=== PATIENT | female | born 1940 | race Two or more races ===

== ENCOUNTER → 2016-12-03 | Outpatient (CLI) | payer MEDICARE, OTHER ==
[2016-02-17 06:00] VITALS: BP 163/60
[~2016-12-03] MED LIST: ALPR0.5T10 PO; AMLO5TAB4 PO; ASCO500T PO; CALC-178 PO; CITA10TA8 PO; COMPAZINE PO; CYCL10TA2 PO; CYCL1DRO OU; DICL100G7 TP; EPIN0.3A4 IJ; GABA-586 PO; GABA600T2 PO; HYOMAX-SL SL; LUBI24CA5 PO; METO-269 PO; OXYC40TA21 PO; PANT40GR PO; POTA10TA31 PO; PRED5TAB PO; RISE150T3 PO; TIZA4CAP3 PO; VITA400C11 PO; [UNRECOGNIZED DRUG - CODE] PO
--- NOTE | 2016-12-03 12:52 | RAD ---
DATE: 12/03/16 EXAM: DIGITAL SCREEN BILAT W/CAD HISTORY: Routine screening COMPARISON: 11/28/15 This study was interpreted with the benefit of Computerized Aided Detection (CAD). TECHNIQUE: Routine CC and MLO views of both breasts are obtained. FINDINGS: The breast tissue density is [C ] . Heterogeneously dense breast parenchyma, this reduces the sensitivity of mammograms. There are no dominant suspicious masses, suspicious microcalcifications or evidence of architectural distortion. Stable benign calcifications are seen in both breasts. Skin and nipples are intact IMPRESSION: Benign findings BI-RADS CATEGORY: 2 BENIGN FINDING(S) RECOMMENDED FOLLOW-UP: 12M 12 MONTH FOLLOW-UP PQRS compliance statement: Patient information was entered into a reminder system with a target due date for the next mammogram. Mammography is a sensitive method for finding small breast cancers, but it does not detect them all and is not a substitute for careful clinical examination. A negative mammogram does not negate a clinically suspicious finding and should not result in delay in biopsying a clinically suspicious abnormality. "Our facility is accredited by the [employer] Mammography Program."
== END | disposition home or self-care (01) ==
LOC: MAMMO 08:39
PROVIDERS: ATTEND Internal Medicine
DX: Z12.31 Encounter for screening mammogram for malignant neoplasm of breast (principal)
CPT/HCPCS: G0202; 77067

== ENCOUNTER → 2017-01-28 | Outpatient (CLI) | payer MEDICARE, OTHER ==
[2016-02-17 06:00] VITALS: BP 163/60
== END | disposition left against medical advice (07) ==
LOC: KCIC DEXA 09:44
PROVIDERS: ATTEND Internal Medicine
DX: Z53.8 Procedure and treatment not carried out for other reasons (principal)

== ENCOUNTER 2017-09-19 14:40 | Inpatient (IN) | payer MEDICARE, OTHER ==
[~2017-09-19] VITALS: Ht 152.4 cm; Wt 65.5 kg
[~2017-09-19 14:40] MED LIST changes: +DICL100G18 TP; -DICL100G7 TP; -EPIN0.3A4 IJ; +EPIPEN 2-P0.3 MG/0.3 IJ; -LUBI24CA5 PO; +LUBI24CA7 PO
--- NOTE | 2017-09-19 16:12 | PHYS DOC ---
Past Medical History Past Medical History: Arthritis, Cancer, GERD, Hypertension, UTI, Other Additional Past Medical Histor: autoimmune neuropathy, osteopenia/porosis, all rhinitis, polymyalgia rheuma Past Surgical History: Appendectomy, Cholecystectomy, Colectomy, Hysterectomy, Knee Replacement Additional Past Surgical Histo: D&C, Back sx Alcohol Use: None Drug Use: None Adult General Chief Complaint Chief Complaint: LOWER BACK PAIN OR INJURY HPI HPI Patient is a 77 year old female [employer] who presents with sharp moderate right low back pain that began today. Patient states she was walking when she turned around and twisting her back. She states she had a pop sound from her low back. Patient states the pain radiates to the right lower extremity. Denies any loss of bowel bladder function. She states she has previous history of chronic back pain with laminectomies and is on multiple pain medications. Review of Systems Review of Systems Constitutional: Denies fever or chills [] GI: Denies abdominal pain, nausea, vomiting, bloody stools or diarrhea [] : Denies dysuria or hematuria [] Musculoskeletal: Right low back pain Integument: Denies rash or skin lesions [] Neurologic: Denies headache, focal weakness or sensory changes [] All other systems were reviewed and found to be within normal limits, except as documented in this note. Current Medications Current Medications Current Medications Medications (Trade) Dose Ordered Sig/Alexia Start Time Stop Time Status Last Admin Dose Admin Dexamethasone Sodium Phosphate (Decadron) 10 mg 1X ONCE 09/19/17 16:15 09/19/17 16:16 DC 09/19/17 16:06 10 MG Diazepam (Valium) 5 mg 1X ONCE 09/19/17 16:15 09/19/17 16:16 DC 09/19/17 16:00 5 MG Fentanyl Citrate (Fentanyl 2ml Vial) 50 mcg 1X ONCE 09/19/17 16:15 09/19/17 16:16 DC 09/19/17 16:03 50 MCG Ketorolac Tromethamine (Toradol Im) 60 mg 1X ONCE 09/19/17 16:15 09/19/17 16:16 DC 09/19/17 16:04 60 MG Ondansetron HCl (Zofran Odt) 4 mg 1X ONCE 09/19/17 16:15 09/19/17 16:16 DC 09/19/17 16:00 4 MG Allergies Allergies Allergies Coded Allergies Type Severity Reaction Last Updated Verified Fish Containing Products Allergy Severe TUNA CAUSES THROAT SWELLING 11/05/15 Yes caffeine Allergy Intermediate Itching 11/05/15 Yes celecoxib Allergy Intermediate Nausea and Vomiting 11/05/15 Yes chocolate flavor Allergy Intermediate Itching 11/05/15 Yes hydrocodone Allergy Intermediate 10/12/14 Yes milk Allergy Intermediate Itching 11/25/13 Yes peanut Allergy Intermediate Itching, ALL NUTS 10/12/14 Yes peas Allergy Intermediate 02/17/16 Yes propoxyphene napsylate Allergy Intermediate Itching 11/25/13 Yes Physical Exam Physical Exam Constitutional: Well developed, well nourished, no acute distress, non-toxic appearance. [] Abdomen: Bowel sounds normal, soft, no tenderness, no masses, no pulsatile masses. [] Skin: Warm, dry, no erythema, no rash. [] Back: Diffuse paraspinal muscle tenderness of the right lumbar spine, there is slight lower lumbar spine tenderness, no CVA tenderness. Positive right leg straight raise. Patient is favoring the right side of her lumbar spine. Extremities: No tenderness, no cyanosis, no clubbing, ROM intact, no edema. [] Neurologic: Alert and oriented X 3, normal motor function, normal sensory function, no focal deficits noted. [] Psychologic: Affect normal, judgement normal, mood normal. [] Current Patient Data Vital Signs Vital Signs Date Time Temp Pulse Resp B/P (MAP) Pulse Ox O2 Delivery O2 Flow Rate FiO2 09/19/17 17:01 70 161/72 (101) 94 Room Air 09/19/17 15:03 97.8 16 97.8 EKG EKG [] Radiology/Procedures Radiology/Procedures []PROCEDURE: LUMBAR SPINE 2-3V LUMBAR SPINE 2-3V Clinical Indication: low back pain Comparison: CT abdomen and pelvis, 06/09/2016. Findings: There is moderate right convexity lower thoracic and lumbar scoliosis centered at L2. The vertebral body alignment is maintained on the lateral view. There is disc space narrowing and degenerative endplate spurring in the lumbar spine. There is L2/L3 vacuum disc phenomenon. There is mild compression deformity of the superior endplate of L4, not definitely present on prior study. Finding is age indeterminant. No retropulsion is seen. IMPRESSION: 1. Age indeterminate mild compression fracture at the superior endplate of L4. Finding not present on prior study. Correlate to any point tenderness. Acuity could be assessed with MRI as clinically warranted. 2. Moderate right convexity thoracolumbar scoliosis. DICTATED and SIGNED BY: ALEXEY ANDERSON MD DATE: 09/19/17 0025 CC: TAB READ APRN; NON,STAFF; TIMO JOHNSON MD ~ Course & Med Decision Making Course & Med Decision Making Pertinent Labs and Imaging studies reviewed. (See chart for details) Patient is in the ED with a right low back pain after twisting her back. Patient states she can barely ambulate. Lumbar spine x-rays interpreted by radiologist were noted for compression fracture of the endplate of L4 age indeterminate. Talked to patient as well as friend in the room about results. Considering she cannot ambulate well she was admitted. Spoke with Dr. Choi who accepted patient for admission under Dr. Rich Mckenna. MRI ordered for AM Gurdeep Disclaimer Dragon Disclaimer This electronic medical record was generated, in whole or in part, using a voice recognition dictation system. Departure Departure Impression: Primary Impression: Low back pain Additional Impression: Sciatica of right side Disposition: 09 ADMITTED INPATIENT Condition: STABLE Referrals: TIMO JOHNSON MD (PCP) Problem Qualifiers Primary Impression: Low back pain Chronicity: acute Back pain laterality: right Sciatica presence: with sciatica Sciatica laterality: sciatica of right side Qualified Codes: M54.41 - Lumbago with sciatica, right side TAB READ APRN Sep 19, 2017 16:12
[2017-09-19] MEDS ORDERED: KETOROLAC 60 MG/2 ML INJ. IM ONE (16:15)
[2017-09-19] MEDS ORDERED: diazePAM 5 MG TABLET PO ONE (16:15)
[2017-09-19] MEDS ORDERED: fentaNYL PF VIAL 100 MCG/2 ML VIAL IM ONE (16:15)
[2017-09-19] MEDS ORDERED: DEXAMETHASONE SOD PHOS 20 MG/5 ML VIAL. IM ONE (16:15)
[2017-09-19] MEDS ORDERED: ONDANSETRON ODT 4 MG TAB.RAPDIS. PO ONE (16:15)
--- NOTE | 2017-09-19 17:04 | RAD ---
LUMBAR SPINE 2-3V Clinical Indication: low back pain Comparison: CT abdomen and pelvis, 06/09/2016. Findings: There is moderate right convexity lower thoracic and lumbar scoliosis centered at L2. The vertebral body alignment is maintained on the lateral view. There is disc space narrowing and degenerative endplate spurring in the lumbar spine. There is L2/L3 vacuum disc phenomenon. There is mild compression deformity of the superior endplate of L4, not definitely present on prior study. Finding is age indeterminant. No retropulsion is seen. IMPRESSION: 1. Age indeterminate mild compression fracture at the superior endplate of L4. Finding not present on prior study. Correlate to any point tenderness. Acuity could be assessed with MRI as clinically warranted. 2. Moderate right convexity thoracolumbar scoliosis.
[2017-09-19] MEDS ORDERED: ACETAMINOPHEN 325 MG TABLET. PO PRN (18:45)
[2017-09-19] MEDS ORDERED: diazePAM 5 MG TABLET PO PRN (18:45)
[2017-09-19] MEDS ORDERED: ONDANSETRON PF 4 MG/2 ML VIAL. IV PRN (18:45)
[2017-09-19] MEDS ORDERED: fentaNYL PF VIAL 100 MCG/2 ML VIAL IV PRN (18:45)
[2017-09-19 19:35] VITALS: BP 167/81
[2017-09-19] MEDS ORDERED: FEXO180T81 PO (20:12)
[2017-09-19] MEDS ORDERED: TRIA15OI TP (20:12)
[2017-09-19] MEDS ORDERED: ESOM40CA PO (20:12)
[2017-09-19] MEDS ORDERED: BETA15CR5 TP (20:12)
[2017-09-19] MEDS ORDERED: DULO60CA6 PO (20:12)
[2017-09-19] MEDS ORDERED: BACL10TA PO (20:12)
[2017-09-19] MEDS ORDERED: POTA20TA82 PO (20:12)
[2017-09-19] MEDS ORDERED: DIPH25CA58 PO (20:12)
[2017-09-19] MEDS ORDERED: diphenhydrAMINE HCL 25 MG CAPSULE PO PRN (20:30)
[2017-09-19] MEDS ORDERED: DICLOFENAC SODIUM 1% TOPICAL GEL 100GM TUBE. TP PRN (20:30)
[2017-09-19] MEDS ORDERED: TRIAMCINOLONE ACETONIDE 0.1% TOPICAL OINTMENT 15GM TUBE. TP PRN (20:30)
[2017-09-19] MEDS ORDERED: FLUOCINONIDE 0.05% TOPICAL CREAM 15 GM TUBE. TP PRN (21:00)
[2017-09-19] MEDS ORDERED: PROCHLORPERAZINE 5 MG TABLET. PO PRN (21:00)
[2017-09-19] MEDS: cycloSPORINE 0.05% OPTH 1 DROP DROPERETTE OU SCH (21:40)
[2017-09-19] MEDS: ALPRAZolam 0.5 MG TABLET PO SCH (21:40)
[2017-09-19] MEDS: GABAPENTIN 300 MG CAPSULE. PO SCH (21:40)
[2017-09-19] MEDS: oxyCODONE ER 40 MG TAB.ER.12H PO SCH (21:40)
[2017-09-19] MEDS: oxyCODONE/APAP 7.5/325 1 TAB TABLET PO PRN (21:41)
[2017-09-19 23:11] VITALS: BP 127/68
[2017-09-20 02:58] VITALS: BP 130/64
[2017-09-20 06:15] LABS: BASO % 0 % (0-3); EOS % 0 % (0-3); HEMOGLOBIN 13.7 g/dL (12.0-15.5); LYMPH # 0.7 x10^3/uL (1.0-4.8); LYMPH % 7 % (24-48); MEAN CORPUSCULAR HEMOGLOBIN 30 pg (25-35); MEAN CORPUSCULAR HGB CONC 33 g/dL (31-37); MEAN CORPUSCULAR VOLUME 91 fL (79-100); MONO % 3 % (0-9); NEUT % 90 % (31-73); PLATELET COUNT 255 x10^3/uL (140-400); RED BLOOD COUNT 4.53 x10^6/uL (3.50-5.40); WHITE BLOOD COUNT 9.5 x10^3/uL (4.0-11.0)
[2017-09-20 06:16] LABS: CALCIUM 8.4 mg/dL (8.5-10.1); CREATININE 0.6 mg/dL (0.6-1.0); GFR 97.2; POTASSIUM 3.6 mmol/L (3.5-5.1)
[2017-09-20 07:15] VITALS: BP 119/56
[2017-09-20 11:06] VITALS: BP 143/69
[2017-09-20] MEDS: cycloSPORINE 0.05% OPTH 1 DROP DROPERETTE OU SCH ×2 (11:57→20:43)
[2017-09-20] MEDS: GABAPENTIN 300 MG CAPSULE. PO SCH ×2 (11:57→20:43)
[2017-09-20] MEDS: DULoxetine HCL 30 MG CAPSULE.DR PO SCH (11:57)
[2017-09-20] MEDS: amLODIPine BESYLATE 5 MG TABLET PO SCH (11:58)
[2017-09-20] MEDS: predniSONE 5 MG TABLET PO SCH (11:58)
[2017-09-20] MEDS: METOPROLOL SUCC 24HR ER 50 MG TAB.ER.24H. PO SCH (11:59)
[2017-09-20] MEDS: oxyCODONE ER 40 MG TAB.ER.12H PO SCH ×2 (11:59→20:43)
[2017-09-20] MEDS: PANTOPRAZOLE 40 MG TABLET.DR. PO SCH (11:59)
[2017-09-20] MEDS ORDERED: VITAMIN E 200 UNIT CAPSULE. PO SCH (12:00)
[2017-09-20] MEDS: ASCORBIC ACID 500 MG TABLET PO SCH (12:00)
[2017-09-20] MEDS: CALCIUM CARB/VIT D3 500/200 TABLET. PO SCH ×2 (12:00→17:03)
[2017-09-20] MEDS ORDERED: CETIRIZINE HCL 10 MG TABLET. PO SCH (12:00)
[2017-09-20] MEDS ORDERED: POTASSIUM CHLORIDE 20 MEQ TABLET.ER. PO SCH (12:00)
[2017-09-20 13:08] LABS: PLT ESTIMATE ADEQUATE (ADEQUATE)
[2017-09-20 15:00] VITALS: BP 137/67
--- NOTE | 2017-09-20 15:23 | RAD ---
LUMBAR SPINE WO CONTRAST Clinical Indication: compression fx on xray. LBP, X 1 DAY TWISTED FELL, SURGERY 2002 Comparison: MR lumbar spine without contrast, 07/06/2009. Technique: Routine multiplanar multiple pulse sequence images of the lumbar spine are obtained without IV contrast. Findings: There is moderate right convexity thoracolumbar scoliosis. There is mild marrow edema that is probably reactive of the endplates of L3/L4 and L4/L5. There is no marrow edema associated with slight compression deformity at the superior endplate of L4. No other bone marrow edema is identified. There is therefore no evidence of acute compression fracture. There is disc desiccation in the lumbar spine. There is disc space narrowing with relative sparing of L1/L2. The vertebral body height and alignment are maintained on the sagittal view. There is a Schmorl's node at the superior endplate of L3. No suspicious T1 marrow signal abnormality is identified. Conus medullaris is normal in signal intensity, appears to terminate at about L1. L1/L2: There is small broad-based posterior disc bulge. Central canal is patent. Neural foramina appear adequate. L2/L3: Broad-based posterior disc osteophyte complex. Mild facet hypertrophy. Narrowing of left lateral recess is severe. Central canal is adequate. There is mild bilateral nerve foraminal narrowing. L3/L4: There is broad-based posterior disc osteophyte complex and facet hypertrophy area in severe narrowing of the left lateral recess. Central canal is adequate. Mild bilateral neural foraminal narrowing. L4/L5: There is broad-based posterior disc osteophyte complex. There is narrowing of the right lateral recess. Central canal is adequate. Moderate right and mild left neural foraminal narrowing. L5/S1: There is small broad-based posterior disc osteophyte complex. The central canal is patent. Mild facet hypertrophy. Probably moderate right and no significant left neural foraminal narrowing. Comparison to the prior study raises question whether the prior study is of the same patient. IMPRESSION: 1. No acute compression fracture in the lumbar spine. 2. There is moderate right convexity thoracolumbar scoliosis. 3. Degenerative lumbar spondylosis, individual levels detailed above.
--- NOTE | 2017-09-20 15:53 | RAD ---
PQRS Compliance Statement: One or more of the following individualized dose reduction techniques were utilized for this examination: 1. Automated exposure control 2. Adjustment of the mA and/or kV according to patient size 3. Use of iterative reconstruction technique CT LUMBAR SPINE WO CONTRAST Clinical Indication: l4 fracture, low back pain. Comparison: MR lumbar spine without contrast, earlier same day. Technique: Helical CT imaging of the lumbar spine is performed without IV contrast. Findings: There is no acute compression fracture. There is moderate right convexity lumbar scoliosis centered at L2/L3. There is lateral listhesis of L3 on L4 and L4 on L5. There are reactive endplate changes in the lumbar spine, relative sparing of L1/L2. There is vacuum disc phenomenon at every level but L1/L2. Soft tissue findings of degenerative spondylosis detailed on the MR lumbar spine report. There are acute traumatic minimally displaced fractures of the right L2 and L3 transverse processes. Limited visualization of the retroperitoneum is unremarkable. IMPRESSION: 1. No acute compression fracture. 2. Acute traumatic minimally displaced fractures of the right L2 and L3 transverse processes.
[2017-09-20] MEDS ORDERED: BACLOFEN 10 MG TABLET. PO SCH (17:00)
[2017-09-20] MEDS: ALPRAZolam 0.5 MG TABLET PO SCH (17:03)
--- NOTE | 2017-09-20 18:13 | PDOC ---
Provider Note Provider Note Pt seen.H&P dictated. #[id number] HIRAM FORD MD Sep 20, 2017 18:13
[2017-09-20 19:00] VITALS: BP 136/66
--- NOTE | 2017-09-20 19:34 | HP ---
ADMIT DATE: 09/19/2017 LOCATION: 430. REASON FOR ADMISSION TO THE HOSPITAL: Back pain, possible compression fracture of the spine. HISTORY OF PRESENT ILLNESS: The patient is a 77-year-old female, patient of Dr. Timo Villanueva. She has a history of polymyalgia rheumatica, autoimmune neuropathy, osteoporosis. She was having sharp pain and that came yesterday, came to the Emergency Room and this was happened when she was twisting her back and felt something pop and then she was going down to the leg ,no problems with bladder or bowel incontinence and x-rays showed sagittal questionable compression fracture. The patient was admitted for pain control and for further investigations and treatment. PAST MEDICAL HISTORY: Arthritis, hypertension, GERD, autoimmune neuropathy, osteoporosis, polymyalgia rheumatica. PAST SURGICAL HISTORY: Appendectomy, gallbladder surgery, hysterectomy, bilateral knee replacements, colectomy, D&C. PERSONAL HISTORY: No history of smoking, alcohol, or drug abuse. ALLERGIES: TO FISH CONTAINING PRODUCTS, CAFFEINE, CELEBREX, CHOCOLATE, HYDROCODONE, MILK, PEANUT, PEAS, DARVOCET, TREE NUT. MEDICATIONS AT HOME: The patient is on Xanax 0.5 daily, amlodipine 5 mg daily, vitamin C 500 mg daily, baclofen 10 mg daily, betamethasone cream daily, calcium 1000 mg daily, Restasis eye drops, diclofenac, Voltaren gel daily, Benadryl daily, Cymbalta 60 mg daily, Nexium 40 mg daily, Yudith one daily, gabapentin 300 mg daily and 600 at bedtime, metoprolol 50 mg daily, oxycodone 40 mg twice a day, oxycodone q. 6 7.5, potassium 20 mEq daily, prednisone 5 mg daily, triamcinolone cream daily, vitamin E daily 400 units, Compazine 5 mg q. 6 p.r.n. FAMILY HISTORY: Unremarkable. REVIEW OF SYSTEMS: CARDIAC: No chest pain. LUNGS: No cough, sputum. GASTROINTESTINAL: No nausea, vomiting. No problems with bladder or bowel control. PHYSICAL EXAMINATION: GENERAL: The patient is not in any distress. VITAL SIGNS: Temperature 97, pulse 71, respirations 16, blood pressure 170/79, 96 on room air. HEENT: Head is atraumatic. Pupils equal. Oral cavity: No congestion. NECK: Supple. Thyroid not enlarged. JVD not elevated. CHEST: Symmetrical. CARDIOVASCULAR: S1, S2. LUNGS: Clear. ABDOMEN: Soft, no mass palpable. EXTERNAL GENITALIA: No [place]. RECTAL: Deferred. EXTREMITIES: Scars in bilateral knees. No calf tenderness, no edema. Pulses 1+. The patient has point tenderness in the lumbar area as well as sacral area on the right side. LABORATORY DATA: Shows a white count of 9, hemoglobin 14, platelets 255. Electrolytes: Sodium 141, creatinine 3.6, chloride 105, bicarbonate 30, anion gap 6, BUN 17, creatinine 0.6, glucose 128. X-rays of the lumbar spine initially showed possible compression fracture of the L4 and some convexity of the scoliosis. Had a CT scan of the lumbar spine, which shows transverse process could be a displaced fracture at the right L2 and L3. The MRI of the lumbar spine did not show any fracture. FINAL IMPRESSION: 1. Acute low back pain. 2. Possible fractures of the lumbar spine. 3. Polymyalgia rheumatica. 4. Osteoporosis. 5. History of surgery on the knees. PLAN: At this time, was admit to hospital. The patient had a CT scan of the spine. MRI was ordered and it was done. It did not show any fracture. We will have physical therapy, rehab consult and see how the patient's condition improves. HIRAM FORD MD DR: TOBY/celena JOB#: [id number] / [id number] TIMO Villanueva MD
--- NOTE | 2017-09-20 20:10 | PDOC ---
Provider Note Provider Note patient seen and examined at 1130 right sided low back pain and right hip pain superior endplate fracture L4 severe degenerative scoliosis Lumbar CT pending consult Dr. Jenkins full consult to follow NEMESIO GARCIA MD Sep 20, 2017 20:10
[2017-09-20] MEDS: oxyCODONE/APAP 7.5/325 1 TAB TABLET PO PRN (20:43)
[2017-09-20 21:16] LABS: BILIRUBIN,URINE NEGATIVE (NEG); GLUCOSE,URINE NEGATIVE (NEG); NITRITE,URINE NEGATIVE (NEG); PROTEIN,URINE NEGATIVE (NEG-TRACE); UROBILINOGEN,URINE 0.2 mg/dL (0.2 mg/dL)
[2017-09-20 21:24] LABS: BACTERIA,URINE FEW /HPF (0-FEW); SQUAMOUS EPITHELIAL CELL,UR MANY /LPF
[2017-09-20 23:25] VITALS: BP 159/75
[2017-09-21 03:00] VITALS: BP 163/56
[2017-09-21 05:29] LABS: ALBUMIN 2.7 g/dL (3.4-5.0); ALBUMIN/GLOBULIN RATIO 0.8 (1.0-1.7); CALCIUM 8.5 mg/dL (8.5-10.1); CREATININE 0.6 mg/dL (0.6-1.0); GFR 97.2; POTASSIUM 3.5 mmol/L (3.5-5.1); TOTAL BILIRUBIN 0.3 mg/dL (0.2-1.0); TOTAL PROTEIN 6.2 g/dL (6.4-8.2)
[2017-09-21 07:00] VITALS: BP 129/61
[2017-09-21] MEDS: GABAPENTIN 300 MG CAPSULE. PO SCH (08:04)
[2017-09-21] MEDS: DULoxetine HCL 30 MG CAPSULE.DR PO SCH (08:04)
[2017-09-21] MEDS: METOPROLOL SUCC 24HR ER 50 MG TAB.ER.24H. PO SCH (08:05)
[2017-09-21] MEDS: PANTOPRAZOLE 40 MG TABLET.DR. PO SCH (08:05)
[2017-09-21] MEDS: CALCIUM CARB/VIT D3 500/200 TABLET. PO SCH (08:05)
[2017-09-21] MEDS: predniSONE 5 MG TABLET PO SCH (08:05)
[2017-09-21 08:06] VITALS: BP 129/61
[2017-09-21] MEDS: ASCORBIC ACID 500 MG TABLET PO SCH (08:06)
[2017-09-21] MEDS: amLODIPine BESYLATE 5 MG TABLET PO SCH (08:06)
[2017-09-21] MEDS: cycloSPORINE 0.05% OPTH 1 DROP DROPERETTE OU SCH (08:06)
[2017-09-21] MEDS: oxyCODONE ER 40 MG TAB.ER.12H PO SCH (09:03)
[2017-09-21] MEDS ORDERED: POTASSIUM CHLORIDE 20 MEQ TABLET.ER. PO ONE (09:30)
--- NOTE | 2017-09-21 09:53 | DISCH ---
DISCHARGE FINAL DIAGNOSIS Problems Medical Problems: (1) Low back pain Status: Acute (2) Sciatica of right side Status: Acute CONDITION ON DISCHARGE: Stable HOME HEALTH: No POST DISCHARGE ORDERS ACTIVITY ORDERS: Resume previous activity, Activity as tolerated DIET AFTER DISCHARGE: Cardiac CHECKS AFTER DISCHARGE CHECKS AFTER DISCHARGE: Check blood press - daily TIMO JOHNSON MD Sep 21, 2017 09:52
--- NOTE | 2017-09-21 10:03 | PDOC ---
IM PROGRESS NOTES- Subjective Subjective Back pain is improving. Objective Vitals Vital Signs Date Time Temp Pulse Resp B/P (MAP) Pulse Ox O2 Delivery O2 Flow Rate FiO2 09/21/17 09:03 94 Room Air 09/21/17 08:06 69 129/61 09/21/17 07:00 97.7 18 97.7 Input & Output Intake and Output 09/21/17 07:00 Intake Total 800 ml Balance 800 ml Intake Oral 800 ml # Voids 3 Physical Exam Physical Exam General appearance - alert,well appearing, and in no distress and oriented to person, place, and time Mental Status - alert, oriented to person, place, and time, affect appropriate to mood Head - normal Chest - clear to auscultation, no wheezes, rales or rhonchi, symmetric air entry Heart - S1 and S2 normal Abdomen - soft, nontender, nondistended, no masses or organomegaly Neurological - alert and oriented Musculoskeletal - no muscular tenderness noted Extremities - no pedal edema Skin - warm and dry Labs Laboratory Tests Test 09/20/17 05:25 09/20/17 20:00 09/21/17 03:50 White Blood Count 9.5 x10^3/uL (4.0-11.0) Red Blood Count 4.53 x10^6/uL (3.50-5.40) Hemoglobin 13.7 g/dL (12.0-15.5) Hematocrit 41.0 % (36.0-47.0) Mean Corpuscular Volume 91 fL (79-100) Mean Corpuscular Hemoglobin 30 pg (25-35) Mean Corpuscular Hemoglobin Concent 33 g/dL (31-37) Red Cell Distribution Width 13.0 % (11.5-14.5) Platelet Count 255 x10^3/uL (140-400) Neutrophils (%) (Auto) 90 % (31-73) Lymphocytes (%) (Auto) 7 % (24-48) Monocytes (%) (Auto) 3 % (0-9) Eosinophils (%) (Auto) 0 % (0-3) Basophils (%) (Auto) 0 % (0-3) Neutrophils # (Auto) 8.5 x10^3uL (1.8-7.7) Lymphocytes # (Auto) 0.7 x10^3/uL (1.0-4.8) Monocytes # (Auto) 0.3 x10^3/uL (0.0-1.1) Eosinophils # (Auto) 0.0 x10^3/uL (0.0-0.7) Basophils # (Auto) 0.0 x10^3/uL (0.0-0.2) Segmented Neutrophils % 87 % (35-66) Band Neutrophils % 4 % (0-9) Lymphocytes % 3 % (24-48) Atypical Lymphocytes % (Manual) 1 % (0-0) Monocytes % 5 % (0-10) Platelet Estimate Adequate (ADEQUATE) Sodium Level 141 mmol/L (136-145) 142 mmol/L (136-145) Potassium Level 3.6 mmol/L (3.5-5.1) 3.5 mmol/L (3.5-5.1) Chloride Level 105 mmol/L (98-107) 106 mmol/L (98-107) Carbon Dioxide Level 30 mmol/L (21-32) 31 mmol/L (21-32) Anion Gap 6 (6-14) 5 (6-14) Blood Urea Nitrogen 17 mg/dL (7-20) 18 mg/dL (7-20) Creatinine 0.6 mg/dL (0.6-1.0) 0.6 mg/dL (0.6-1.0) Estimated GFR (Cockcroft-Gault) 97.2 97.2 Glucose Level 128 mg/dL (70-99) 101 mg/dL (70-99) Calcium Level 8.4 mg/dL (8.5-10.1) 8.5 mg/dL (8.5-10.1) Urine Collection Type Unknown Urine Color Yellow Urine Clarity Clear Urine pH 7.0 Urine Specific [place] 1.025 Urine Protein Negative mg/dL (NEG-TRACE) Urine Glucose (UA) Negative mg/dL (NEG) Urine Ketones (Stick) Negative mg/dL (NEG) Urine Blood Negative (NEG) Urine Nitrite Negative (NEG) Urine Bilirubin Negative (NEG) Urine Urobilinogen Dipstick 0.2 mg/dL (0.2 mg/dL) Urine Leukocyte Esterase Small (NEG) Urine RBC 1-2 /HPF (0-2) Urine WBC 1-4 /HPF (0-4) Urine Squamous Epithelial Cells Many /LPF Urine Bacteria Few /HPF (0-FEW) Urine Mucus Mod /LPF BUN/Creatinine Ratio 30 (6-20) Total Bilirubin 0.3 mg/dL (0.2-1.0) Aspartate Amino Transf (AST/SGOT) 22 U/L (15-37) Alanine Aminotransferase (ALT/SGPT) 25 U/L (14-59) Alkaline Phosphatase 84 U/L (46-116) Total Protein 6.2 g/dL (6.4-8.2) Albumin 2.7 g/dL (3.4-5.0) Albumin/Globulin Ratio 0.8 (1.0-1.7) Laboratory Tests Test 09/20/17 20:00 09/21/17 03:50 Urine Collection Type Unknown Urine Color Yellow Urine Clarity Clear Urine pH 7.0 Urine Specific [place] 1.025 Urine Protein Negative mg/dL (NEG-TRACE) Urine Glucose (UA) Negative mg/dL (NEG) Urine Ketones (Stick) Negative mg/dL (NEG) Urine Blood Negative (NEG) Urine Nitrite Negative (NEG) Urine Bilirubin Negative (NEG) Urine Urobilinogen Dipstick 0.2 mg/dL (0.2 mg/dL) Urine Leukocyte Esterase Small (NEG) Urine RBC 1-2 /HPF (0-2) Urine WBC 1-4 /HPF (0-4) Urine Squamous Epithelial Cells Many /LPF Urine Bacteria Few /HPF (0-FEW) Urine Mucus Mod /LPF Sodium Level 142 mmol/L (136-145) Potassium Level 3.5 mmol/L (3.5-5.1) Chloride Level 106 mmol/L (98-107) Carbon Dioxide Level 31 mmol/L (21-32) Anion Gap 5 (6-14) Blood Urea Nitrogen 18 mg/dL (7-20) Creatinine 0.6 mg/dL (0.6-1.0) Estimated GFR (Cockcroft-Gault) 97.2 BUN/Creatinine Ratio 30 (6-20) Glucose Level 101 mg/dL (70-99) Calcium Level 8.5 mg/dL (8.5-10.1) Total Bilirubin 0.3 mg/dL (0.2-1.0) Aspartate Amino Transf (AST/SGOT) 22 U/L (15-37) Alanine Aminotransferase (ALT/SGPT) 25 U/L (14-59) Alkaline Phosphatase 84 U/L (46-116) Total Protein 6.2 g/dL (6.4-8.2) Albumin 2.7 g/dL (3.4-5.0) Albumin/Globulin Ratio 0.8 (1.0-1.7) Meds Current Medications Baclofen (Lioresal) 10 mg DAILYWSUP PO Last administered on 09/20/17 17:03; Start 09/20/17 at 17:00 Cetirizine HCl (ZyrTEC) 10 mg DAILYWLUN PO Last administered on 09/20/17 12: 05; Start 09/20/17 at 12:00 Potassium Chloride (Klor-Con) 20 meq 1X ONCE PO ; Start 09/21/17 at 09:30; Stop 09/21/17 at 09:31; Status DC Potassium Chloride (Klor-Con) 20 meq DAILYWLUN PO Last administered on 12:05; Start 09/20/17 at 12:00 Vitamin E 400 unit DAILYWLUN PO Last administered on 09/20/17 12:04; Start 09/20/17 at 12:00 Assessment Assessment Low back pain- no fractures noted on MRI of lumbar spine.Show degenerative disease. Hypokalemia- K 3.5 Replace K. No UTI- is asymptomatic and u/a not significant. Osteoporosis. She is feeling much better. Discharge today if ok with . Continue home meds. Discharge Management - 35 minutes. Plan Plan For more details regarding further plans, please refer to the orders. TIMO JOHNSON MD Sep 21, 2017 10:03
--- NOTE | 2017-09-21 12:38 | CONS ---
DATE OF CONSULTATION: 09/21/2017 LOCATION: She is in room 430. ATTENDING PHYSICIAN: Dr. Bala Villanueva. REASON FOR CONSULTATION: The patient was seen at the request of Dr. Choi for rehab evaluation on 09/21/2017. HISTORY OF PRESENT ILLNESS: This is a 77-year-old female with known polymyalgia rheumatica, autoimmune neuropathy, osteoporosis. The patient developed sharp pain over right side of her lower back after she twisted her back on 09/19/2017. She was admitted through the Emergency Room. The patient had radiological studies, lumbar spine x-rays revealed indeterminate mild compression fracture of superior endplate of L4 with associated disk space narrowing and degenerative endplate spurring in the lumbar spine, more so at L2-L3, also moderate right convexity lower thoracic and lumbar scoliosis centered at L2. MRI scan of her lumbar vertebrae done on 09/20/2017 revealed no acute compression fracture of the lumbar spine, moderate right convexity thoracolumbar scoliosis and degenerative lumbar spondylosis. CT scan of the lumbar spine revealed acute traumatic minimally displaced fractures of her right L2-L3 transverse processes. The patient admits to some pain in the right side of her lower back and she denies any numbness, tingling sensation in the extremities. The patient has been using a lumbar corset for long time while up. She uses a roller walker to walk. PAST MEDICAL HISTORY: Includes arthritis, hypertension, gastroesophageal reflux disease, autoimmune neuropathy, osteoporosis, polymyalgia rheumatica, status post appendectomy, cholecystectomy, hysterectomy, bilateral total knee arthroplasty, colectomy. ALLERGIES: SHE IS KNOWN ALLERGIC TO FISH CONTAINING PRODUCTS, CAFFEINE, CELEBREX, CHOCOLATE, HYDROCODONE, MILK, PEANUT, PEAS, DARVOCET AND TREE NUT. SOCIAL HISTORY: The patient is a [employer]. REVIEW OF SYSTEMS: She denies any trouble with her bowel or bladder control at the present time. PHYSICAL EXAMINATION: Today, revealed an elderly female. She is alert, oriented to time, place and person, follows commands appropriately, moves all 4 extremities voluntarily where she has 4+/5 grade muscle strength. Deep tendon reflexes are 2+ and symmetrical and she had equal perception of touch and pinprick sensation bilaterally. She had tenderness to palpation over right lumbar paraspinal muscles extending over to sacroiliac joint area and straight leg raising test is negative bilaterally. She had painful limited movements of her lumbar spine. She is independent with bed mobility, transfers, and walking using a roller walker. ASSESSMENT: The patient with lumbar sprain from twisting motion with associated minimally displaced transverse process fractures of L2 and L3 on the right side in a patient with known chronic lower back pain from degenerative disk disease and degenerative joint disease of lumbar vertebrae without any clinical evidence of ongoing lumbar radiculopathy, status post bilateral total knee arthroplasty. RECOMMENDATIONS: I have instructed her in a home program of physical modalities and stretching exercises and reviewed with her proper body mechanics. I agree with the plans for home with outpatient followup and I have advised her to keep using the lumbar corset on an as needed basis. Dr. Choi, I appreciate asking me to participate in the care of this interesting patient. I will be glad to follow her with you as needed for her rehabilitation. JESSICA MCCORMICK MD DR: MONA/celena JOB#: [id number] / [id number]
--- NOTE | 2017-09-29 15:53 | PDOC3 ---
IM DISCHARGE SUMMARY Date of Admission Date of Admission Date of Admission: Sep 19, 2017 at 18:00 Date of Discharge Date of Discharge 09/21/27 Primary Diagnosis Primary Diagnosis FINAL IMPRESSION: 1. Acute on chronic LBP secondary to non traumatic lumbar strain. 3. Polymyalgia rheumatica. 4. Osteoporosis. 5. Hypertension 6. chronic pain syndrome with underlying RA and OA with chronic OP management 7. RA chronic prednisone use 8. tortuous esophagus 9. hyperlipidemia 10. autoimmune neuropathy 11. psoriasis 11. CKD II 12. polymyalgia rheumatica 13. h/o dysphagia resolved with stricture dilation 14. h/o stomach cancer: gastrectomy and chemo 15. DDD and DJD lumbar spine 16. H/o bilateral knee arthroplasty 17. moderate chronic PCL malnutrition 18. h/o diverticulitis 19. superior endplate fracture L4 atraumatic with h/o osteoporosis POA Problems: Consults Consults Anadna Ramirez MD, Dr. Procedures Procedures None Labs Labs See EMR Brief hospital course Brief hospital course This 77 year old [place] male who presented with intractable low back pain was admitted. The following is a summary of her treatment: 09/21/17 Low back pain- no fractures noted on MRI of lumbar spine.Show degenerative disease.--Dr. Ramirez noted L4 endplate fracture atraumatic. - Hypokalemia- K 3.5 Replace K. No UTI- is asymptomatic and u/a not significant. Osteoporosis.- will eval for outpatient infusion Prolia She is feeling much better. Discharge today if ok with . Continue home meds. Discharge Management - 35 minutes. 09/20/17 At this time, was admit to hospital. The patient had a CT scan of the spine. MRI was ordered and it was done. It did not show any fracture. We will have physical therapy, rehab consult and see how the patient's condition improves. consult rehab medicine and neurosurgery For more details regarding the past history, family history, social history, surgical history and other details, please refer to History and Physical. She is being discharged home. Please see the discharge orders. Medications Medications reviewed and reconciled for discharge. Allergy Allergies Coded Allergies Type Severity Reaction Last Updated Verified Fish Containing Products Allergy Severe TUNA CAUSES THROAT SWELLING 11/05/15 Yes caffeine Allergy Intermediate Itching 11/05/15 Yes celecoxib Allergy Intermediate Nausea and Vomiting 11/05/15 Yes chocolate flavor Allergy Intermediate Itching 11/05/15 Yes hydrocodone Allergy Intermediate 10/12/14 Yes milk Allergy Intermediate Itching 11/25/13 Yes peanut Allergy Intermediate Itching, ALL NUTS 10/12/14 Yes peas Allergy Intermediate 02/17/16 Yes propoxyphene napsylate Allergy Intermediate Itching 11/25/13 Yes tree nut Allergy Intermediate ITCHING, ALL NUTS 09/21/17 Yes Follow up Per Dr. Villanueva instructions DISPOSITION: Home Comments Discharge Management - 35 minutes. For other details please refer to discharge instructions AGUS PUGA APRN Sep 29, 2017 15:53
== END 2017-09-21 11:00 | disposition home or self-care (01) | DRG 543 ==
LOC: ER 14:40 → 4 NORTH 18:00
PROVIDERS: ADMIT Internal Medicine; ATTEND Internal Medicine
DX: M80.08XA Age-related osteoporosis with current pathological fracture, vertebra(e), initial encounter for fracture (principal); E44.0 Moderate protein-calorie malnutrition; G62.9 Polyneuropathy, unspecified; M41.86 Other forms of scoliosis, lumbar region; S39.012A Strain of muscle, fascia and tendon of lower back, initial encounter; M51.36 Other intervertebral disc degeneration, lumbar region; M54.9 Dorsalgia, unspecified; M54.41 Lumbago with sciatica, right side; M46.06 Spinal enthesopathy, lumbar region; M47.816 Spondylosis without myelopathy or radiculopathy, lumbar region; G89.29 Other chronic pain; J31.0 Chronic rhinitis; M35.3 Polymyalgia rheumatica; X58.XXXA Exposure to other specified factors, initial encounter; E87.6 Hypokalemia; K21.9 Gastro-esophageal reflux disease without esophagitis; I10 Essential (primary) hypertension; Z96.653 Presence of artificial knee joint, bilateral; M19.90 Unspecified osteoarthritis, unspecified site; Z90.710 Acquired absence of both cervix and uterus; Z90.49 Acquired absence of other specified parts of digestive tract; Z88.6 Allergy status to analgesic agent; Z91.011 Allergy to milk products; Z91.010 Allergy to peanuts; Z91.018 Allergy to other foods; Z88.8 Allergy status to other drugs, medicaments and biological substances; Y93.89 Activity, other specified; Y92.89 Other specified places as the place of occurrence of the external cause; Y99.8 Other external cause status; Z87.440 Personal history of urinary (tract) infections; Z85.9 Personal history of malignant neoplasm, unspecified; Z79.899 Other long term (current) drug therapy
CPT/HCPCS: 36415; 72100; 72131; 72148; 80048; 80053; 81001; 85007; 85025; 87086; 96372; J1100; J1885; J3010; J7512; Q0162; 99285-25

== ENCOUNTER → 2017-12-09 | Outpatient (CLI) | payer MEDICARE, OTHER | END | disposition home or self-care (01) | LOC: MAMMO 08:31 | DX: Z12.31 Encounter for screening mammogram for malignant neoplasm of breast (principal) | CPT/HCPCS: 77067 ==

== ENCOUNTER → 2018-05-26 | Outpatient (CLI) | payer MEDICARE, OTHER | END | disposition home or self-care (01) | LOC: KCIC DEXA 09:12 | DX: E28.39 Other primary ovarian failure (principal); I12.9 Hypertensive chronic kidney disease with stage 1 through stage 4 chronic kidney disease, or unspecified chronic kidney disease; N18.2 Chronic kidney disease, stage 2 (mild); E78.5 Hyperlipidemia, unspecified; E87.6 Hypokalemia; K21.9 Gastro-esophageal reflux disease without esophagitis; Z96.653 Presence of artificial knee joint, bilateral; Z90.49 Acquired absence of other specified parts of digestive tract | CPT/HCPCS: 77080 ==

== ENCOUNTER → 2019-12-27 | Outpatient (CLI) | payer MEDICARE, MEDICAID ==
[~2019-12-27] MED LIST changes: +ASCO-219 PO; -ASCO500T PO; +BACL10TA PO; +BETA15CR5 TP; +DIPH25CA58 PO; +DULO60CA6 PO; +ESOM40CA PO; +FEXO180T81 PO; -GABA-586 PO; +GABA300C18 PO; -GABA600T2 PO; +GABA600T7 PO; +POTA20TA4 PO; +TRIA15OI TP
--- NOTE | 2019-12-28 10:31 | RAD ---
Left lower survey arterial duplex ultrasound study without comparison for left lateral ankle nonhealing wound. TECHNIQUE AND FINDINGS: Real-time grayscale and color and spectral Doppler evaluation of the arteries of the left lower extremity is performed. There is moderate multifocal atherosclerosis. The left common femoral artery, profunda femoral artery, superficial femoral artery, and popliteal arteries are all patent and biphasic with no focal velocity elevations to suggest hemodynamically significant stenoses. There appears to be more moderate bulky atherosclerotic plaque within the runoff vessels based on grayscale and color Doppler imaging, however flow remains biphasic within the posterior tibial and peroneal arteries, with no focal velocity elevations. Within the left anterior tibial artery, flow is biphasic, but there is a focal velocity elevation to 189 cm/s, which could indicate hemodynamically significant stenosis in the anterior tibial artery distribution. Flow in the dorsalis pedis artery is biphasic as well, but demonstrates markedly diminished velocities of 30 cm/s. IMPRESSION: 1. Hemodynamic leg significant focal stenosis of the anterior tibial artery with no other hemodynamically significant stenoses identified. If this patient's wound is at or above the lateral malleolus or anywhere along the dorsum of the foot, angiography and revascularization may be of benefit. Electronically signed by: Manuel Beatty MD (12/28/2019 10:28 AM) [id number]
== END | disposition home or self-care (01) ==
LOC: US 08:52
PROVIDERS: ATTEND Preventive Medicine Undersea and Hyperbaric Medicine
DX: I70.243 Atherosclerosis of native arteries of left leg with ulceration of ankle (principal); L97.329 Non-pressure chronic ulcer of left ankle with unspecified severity
CPT/HCPCS: 93926

== ENCOUNTER 2020-01-16 07:19 | Outpatient (CLI) | payer MEDICARE, MEDICAID ==
[~2020-01-16] VITALS: Ht 165.1 cm; Wt 68.0 kg
[~2020-01-16 07:19] MED LIST changes: +IV RINGERS,LACTATED 1000ML 1,000 ML IV SCH; +LIDOCAINE 1% PF 2 ML VIAL. ID PRN; +ONDANSETRON PF 4 MG/2 ML VIAL. IV PRN; +PROCHLORPERAZINE 10 MG/2 ML VIAL. IV PRN; +fentaNYL PF VIAL 100 MCG/2 ML VIAL IV PRN
[2020-01-16] MEDS ORDERED: MAGN64TA6 PO (07:55)
[2020-01-16] MEDS ORDERED: OXYC1TAB19 PO (07:55)
[2020-01-16] MEDS ORDERED: CEVI30CA PO (07:55)
[2020-01-16] MEDS ORDERED: FERR325T14 PO (07:55)
[2020-01-16] MEDS ORDERED: MULT-240 PO (07:55)
[2020-01-16] MEDS ORDERED: PANT40TA77 PO (07:55)
[2020-01-16] MEDS ORDERED: DENO60DI SQ (07:55)
[2020-01-16] MEDS ORDERED: CHOL200078 PO (07:55)
[2020-01-16 08:11] LABS: BASO # 0.1 x10^3/uL (0.0-0.2); BASO % 1 % (0-3); EOS # 0.2 x10^3/uL (0.0-0.7); EOS % 2 % (0-3); HEMOGLOBIN 13.9 g/dL (12.0-15.5); LYMPH # 1.9 x10^3/uL (1.0-4.8); LYMPH % 25 % (24-48); MEAN CORPUSCULAR HEMOGLOBIN 30 pg (25-35); MEAN CORPUSCULAR HGB CONC 34 g/dL (31-37); MEAN CORPUSCULAR VOLUME 89 fL (79-100); MONO # 0.7 x10^3/uL (0.0-1.1); MONO % 10 % (0-9); NEUT # 4.8 x10^3/uL (1.8-7.7); NEUT % 63 % (31-73); PLATELET COUNT 236 x10^3/uL (140-400); RED CELL DISTRIBUTION WIDTH 12.8 % (11.5-14.5); WHITE BLOOD COUNT 7.7 x10^3/uL (4.0-11.0)
[2020-01-16] MEDS ORDERED: IODIXANOL 320 MG/ML 100 ML VIAL. ONE (08:14)
[2020-01-16] MEDS ORDERED: HEPARIN for ARTERIAL LINE 1,500 ML ONE (08:15)
[2020-01-16] MEDS ORDERED: LIDOCAINE WITH 8.4% SOD BICARB 3 ML DISP.SYRIN. ONE (08:15)
[2020-01-16 08:16] LABS: CALCIUM 8.7 mg/dL (8.5-10.1); CREATININE 0.7 mg/dL (0.6-1.0); GFR 80.9; POTASSIUM 3.5 mmol/L (3.5-5.1)
[2020-01-16] MEDS ORDERED: KETAMINE HCL IN NACL, ISO-OSM 50 MG/5 ML SYRINGE ONE (08:24)
[2020-01-16] MEDS ORDERED: fentaNYL PF VIAL 250 MCG/5 ML VIAL ONE (08:24)
[2020-01-16] MEDS ORDERED: MIDAZOLAM HCL/PF 2 MG/2 ML VIAL. ONE ×2 (08:24)
[2020-01-16 08:31] LABS: PROTHROMBIN TIME PATIENT 12.4 SEC (11.7-14.0)
[2020-01-16] MEDS ORDERED: HEPARIN for IV BOLUS 10,000 UNIT/10 ML VIAL. ONE (08:36)
[2020-01-16 08:41] VITALS: BP 124/69
[2020-01-16] MEDS ORDERED: IODIXANOL 320 MG/ML 100 ML VIAL. IART ONE (09:00)
[2020-01-16] MEDS ORDERED: LIDOCAINE WITH 8.4% SOD BICARB 3 ML DISP.SYRIN. IJ ONE (09:00)
[2020-01-16] MEDS ORDERED: HEPARIN for IV BOLUS 10,000 UNIT/10 ML VIAL. IV ONE (09:45)
[2020-01-16 13:28] VITALS: BP 145/64
--- NOTE | 2020-01-16 16:13 | RAD ---
01/16/2020 2:05 PM Procedure: 1. Abdominal aortogram 2. Pelvic angiography 3. Left lower extremity angiography 4. Balloon angiography of multifocal stenosis of the left anterior tibial artery Clinical Indication: LLE NON HEALING WOUND Discussion: The procedure was explained in its entirety to the patient or the patients designated guest relations representative by a member of the treatment team, including a discussion of the risks, benefits and commonly accepted alternatives to the procedure, as well as the expected consequences of no therapy whatsoever. Discussion of the risks included, but was not limited to, those that are most frequent and those that are rare but possibly severe or life-threatening, as well as the possibility of unforeseen complications. All elements of maximal sterile barrier technique including the use of a cap, mask, sterile gown, sterile gloves, large sterile sheet, appropriate hand hygiene, and 2% chlorhexidine for cutaneous antisepsis (or acceptable alternative antiseptic per current guidelines) were followed for this procedure. 1% lidocaine was administered for local anesthesia. Ultrasound evaluation demonstrates the right common femoral artery be patent. The artery was accessed using direct ultrasound guidance and micropuncture technique. Reference ultrasound images were saved the medical record. A 5 Macanese vascular sheath was placed. A catheter was advanced into the abdominal aorta. Abdominal aortogram was performed. No evidence of aneurysm, or flow-limiting stenosis is identified. Visualized portions of aortic branch vessels are unremarkable. Some tortuosity of the distal abdominal aorta likely secondary to the patient's scoliosis is seen. The catheter was repositioned and pelvic angiography performed demonstrating no significant aortoiliac stenosis. The bilateral common femoral arteries are patent. A high bifurcation of the SFA and profunda artery on the right are noted with the vascular access site at the inferior border of the common femoral artery. The catheter was repositioned into the superficial femoral artery and left lower extremity angiography performed. The left superficial femoral artery and popliteal artery are patent. The left tibial peroneal trunk, posterior tibial artery, peroneal artery remains patent. The anterior tibial artery demonstrates multiple high-grade stenoses/near occlusions throughout its course extending to the level of the ankle joint. The dorsalis pedis artery is small but patent. Another over vascular sheath was placed. The anterior tibial artery stenoses were traversed. Balloon angioplasty was performed 2.5 mm with significant improvement in morphology and flow following angioplasty. All wires catheters and sheaths were removed. A closure device was deployed to achieve hemostasis. No immediate complications were identified. Total fluoroscopy time: 16.5 minutes Dose area product [id number] Impression: 1. No significant aortoiliac or femoropopliteal stenosis on the left 2. Multiple high-grade tandem stenoses of the left anterior tibial artery successfully treated with balloon angioplasty. Following intervention there is three-vessel runoff on the left.
== END 2020-01-16 13:00 | disposition home or self-care (01) ==
LOC: INTRAD 07:19
PROVIDERS: ATTEND Preventive Medicine Undersea and Hyperbaric Medicine
DX: T81.89XA Other complications of procedures, not elsewhere classified, initial encounter (principal); I70.202 Unspecified atherosclerosis of native arteries of extremities, left leg; K21.9 Gastro-esophageal reflux disease without esophagitis; I10 Essential (primary) hypertension; Z85.028 Personal history of other malignant neoplasm of stomach; Z79.899 Other long term (current) drug therapy; Z87.39 Personal history of other diseases of the musculoskeletal system and connective tissue; Z96.653 Presence of artificial knee joint, bilateral; Z90.49 Acquired absence of other specified parts of digestive tract; Z90.3 Acquired absence of stomach [part of]; Z88.8 Allergy status to other drugs, medicaments and biological substances; Z88.1 Allergy status to other antibiotic agents; Z91.011 Allergy to milk products; Z88.5 Allergy status to narcotic agent; Z91.018 Allergy to other foods; Z91.013 Allergy to seafood; Y83.8 Other surgical procedures as the cause of abnormal reaction of the patient, or of later complication, without mention of misadventure at the time of the procedure; Y92.89 Other specified places as the place of occurrence of the external cause
CPT/HCPCS: 36415; 37228; 75625; 75710; 76937; 80048; 85025; 85610; C1713; C1725; C1760; C1769; C1892; C1894; J1644; J3010; J3490; J7120; Q9967; G0269; J2250

== ENCOUNTER → 2020-04-23 | Outpatient (CLI) | payer MEDICARE, MEDICAID ==
[~2020-04-23] MED LIST changes: -ASCO-219 PO; +ASCO500T53 PO; +CEVI30CA PO; +CHOL200078 PO; +DENO60DI SQ; -DICL100G18 TP; +DICL100G54 TP; +FERR325T14 PO; -IV RINGERS,LACTATED 1000ML 1,000 ML IV SCH; -LIDOCAINE 1% PF 2 ML VIAL. ID PRN; +MAGN64TA6 PO; +MULT-240 PO; -ONDANSETRON PF 4 MG/2 ML VIAL. IV PRN; +OXYC1TAB19 PO; +PANT40TA77 PO; -PROCHLORPERAZINE 10 MG/2 ML VIAL. IV PRN; -fentaNYL PF VIAL 100 MCG/2 ML VIAL IV PRN
--- NOTE | 2020-04-23 16:26 | RAD ---
Right lower extremity arterial duplex study 04/23/2020 CLINICAL HISTORY: Peripheral vascular disease. TECHNIQUE: Using a combination of real-time ultrasound imaging and color-flow and pulse Doppler imaging techniques, duplex evaluation of the major arterial structures of the right lower extremity was performed. Multiple images were obtained. FINDINGS: Mild to moderate atheromatous/atherosclerotic plaque formation is seen involving the major arterial structures of the right lower extremity. The arterial waveforms are biphasic/triphasic throughout. The peak systolic velocities taper normally. No hemodynamically significant stenosis or are of occlusion is seen. Impression: Mild to moderate atheromatous/atherosclerotic plaque formation is seen scattered throughout the major arterial structures of the right lower extremity. No hemodynamically significant stenosis or area of occlusion is seen. Electronically signed by: Rk Dubose MD (04/23/2020 4:22 PM) [id number]
== END | disposition home or self-care (01) ==
LOC: US 10:33
PROVIDERS: ATTEND Internal Medicine
DX: I70.201 Unspecified atherosclerosis of native arteries of extremities, right leg (principal)
CPT/HCPCS: 93926

== ENCOUNTER 2021-07-02 10:06 | Emergency (ER) | payer MEDICARE, MEDICAID ==
[~2021-07-02] VITALS: Ht 162.6 cm; Wt 68.0 kg
[~2021-07-02 10:06] MED LIST changes: +ALPR0.5T PO; +CEPH750C9 PO
[2021-07-02] MEDS ORDERED: DIPH,PERTUSS(ACELL),TET VAC/PF 0.5 ML SYRINGE. VAX IM ONE (11:45)
[2021-07-02 11:46] LABS: BILIRUBIN,URINE NEGATIVE (NEG); CLARITY,URINE CLEAR; COLOR,URINE YELLOW; NITRITE,URINE NEGATIVE (NEG); PROTEIN,URINE NEGATIVE (NEG-TRACE); UROBILINOGEN,URINE 0.2 mg/dL (0.2 mg/dL)
[2021-07-02 12:00] LABS: BACTERIA,URINE MODERATE /HPF (0-FEW); RBC,URINE 0 /HPF (0-2); WBC,URINE 20-40 /HPF (0-4)
[2021-07-02 12:08] LABS: BASO % 0 % (0-3); EOS # 0.1 x10^3/uL (0.0-0.7); EOS % 1 % (0-3); HEMATOCRIT 37.9 % (36.0-47.0); HEMOGLOBIN 12.8 g/dL (12.0-15.5); LYMPH # 0.8 x10^3/uL (1.0-4.8); LYMPH % 9 % (24-48); MEAN CORPUSCULAR HEMOGLOBIN 31 pg (25-35); MEAN CORPUSCULAR HGB CONC 34 g/dL (31-37); MEAN CORPUSCULAR VOLUME 92 fL (79-100); MONO # 0.7 x10^3/uL (0.0-1.1); MONO % 8 % (0-9); NEUT # 7.5 x10^3/uL (1.8-7.7); NEUT % 82 % (31-73); PLATELET COUNT 268 x10^3/uL (140-400); RED BLOOD COUNT 4.13 x10^6/uL (3.50-5.40); RED CELL DISTRIBUTION WIDTH 12.8 % (11.5-14.5); WHITE BLOOD COUNT 9.1 x10^3/uL (4.0-11.0)
[2021-07-02 12:22] LABS: ALBUMIN 2.9 g/dL (3.4-5.0); ALBUMIN/GLOBULIN RATIO 0.8 (1.0-1.7); C-REACTIVE PROTEIN 72.2 mg/L (0-3.3); CALCIUM 8.8 mg/dL (8.5-10.1); CREATININE 0.7 mg/dL (0.6-1.0); GFR 80.7; POTASSIUM 4.1 mmol/L (3.5-5.1); TOTAL BILIRUBIN 0.2 mg/dL (0.2-1.0); TOTAL PROTEIN 6.7 g/dL (6.4-8.2)
[2021-07-02] MEDS ORDERED: CONTRAST GIVEN. MC PRN (12:30)
[2021-07-02] MEDS ORDERED: IOHEXOL 300 MG/ML 100ML VIAL. IV ONE (12:30)
--- NOTE | 2021-07-02 13:30 | RAD ---
Site ID: [id number] EXAMINATION: CT LEFT UPPER EXTREMITY WITH. Technique: Axial images with coronal and sagittal reconstructions are performed of left upper extremi ty with intravenous contrast. 75 mL of Omnipaque 300 was administered intravenously. One or more of the following radiation dose reduction techniques was used: automated exposure control , adjustment of mA and/or KV according to patient size, and/or utilization of iterative reconstructio n technique. HISTORY: 80 years Female Reason: LUE cellulitis with lymphangitis, abscess vs osteomyelitis . Left arm pain. COMPARISON: None. FINDINGS: In the left forearm there is subcutaneous the edema and swelling without fluid collection or abscess identified. The underlying radius and ulna demonstrate no focal erosion. There the muscles have a dolores ogeneous the density and enhancement. There is mild engorgement of the left upper extremity veins, ex pected with the inflammation. IMPRESSION: Findings compatible with cellulitis in the left forearm with no underlying abscess or bone erosion id entified. Electronically signed by: John Maya MD (07/02/2021 1:28 PM) [id number]
--- NOTE | 2021-07-02 14:21 | PHYS DOC ---
Past Medical History Past Medical History: Arthritis, Cancer, Fibromyalgia, GERD, Hypertension, UTI, Other Additional Past Medical Histor: autoimmune neuropathy, osteopenia/porosis, all rhinitis, polymyalgia rheuma (SADAF NEW HONEY BLENDER) Past Surgical History: Appendectomy, Cholecystectomy, Colectomy, Hysterectomy, Knee Replacement Additional Past Surgical Histo: D&C, Back sx, catarats, partial stomach resection (SADAF [employer] HONEY BLENDER) Smoking Status: Never Smoker Alcohol Use: None Drug Use: None (SADAF NEW HONEY BLENDER) General Adult EDM: Chief Complaint: UPPER EXTREMITY SWELLING HPI: HPI: Patient is a 80 year old female who presents emergency department complaining of a infection to her left forearm for the past 15 days. Patient reports she thinks it is a cellulitis as she has had a cellulitic infection in the past. Patient reports a pain of a 6 out of 10 with radiation of pain both distally and proximally. Patient denies pain to her left axilla. Denies fever or chills. Patient denies any loss of movement or loss of sensation to her left arm. Patient denies weakness to her left arm. Patient denies injury to her left arm. Patient denies shortness of breath, cough, congestion. Patient denies rashes to her skin other than the redness surrounding her left forearm. Patient denies any other physical complaints or physical concerns. Patient reports her last Tdap immunization was approximately 1 year ago. Patient has a past medical history of autoimmune neuropathy, hypertension, osteoporosis, GERD, allergic rhinitis, psoriatic arthritis, polymyalgia rheumatica, tortuous esophagus, L4-L5 chronic compression, fibromyalgia, gluten intolerance. Past surgical history of appendectomy in 1967, D&C in 1999, headache surgery 2003, cholecystectomy 2004, hysterectomy 2006, lumbar spine surgery 2008. Gastric resection 2010 related to cancer. Right knee replacement 2012, left knee replacement 2013. Patient reports an allergy to Darvocet, tuna fish, peanuts, tree nuts, caffeine, meloxicam, chocolate, milk, peas, hydrocodone, pilocarpine. (SADAF [employer] HONEY BLENDER) Review of Systems: Review of Systems: 14 body systems of review of systems have been reviewed. See HPI for pertinent positives and negative responses, otherwise all other systems are negative, nonpertinent or noncontributory. Constitutional: Negative except as outlined in HPI above. Skin: Negative except as outlined in HPI above. Eyes: Negative except as outlined in HPI above. HENT: Negative except as outlined in HPI above. Respiratory: Negative except as outlined in HPI above. Cardiovascular: Negative except as outlined in HPI above. GI: Negative except as outlined in HPI above. : Negative except as outlined in HPI above. Musculoskeletal: Negative except as outlined in HPI above. Integument: Negative except as outlined in HPI above. Neurologic: Negative except as outlined in HPI above. Endocrine: Negative except as outlined in HPI above. Lymphatic: Negative except as outlined in HPI above. Psychiatric: Negative except as outlined in HPI above. (SADAF NEW APRN) Heart Score: C/O Chest Pain: No Risk Factors: Risk Factors: DM, Current or recent (<one month) smoker, HTN, HLP, family history of CAD, obesity. Risk Scores: Score 0 - 3: 2.5% MACE over next 6 weeks - Discharge Home Score 4 - 6: 20.3% MACE over next 6 weeks - Admit for Clinical Observation Score 7 - 10: 72.7% MACE over next 6 weeks - Early Invasive Strategies (SADAF NEW APRN) Current Medications: Patient reports medication history as follows: OxyContin 40 mg twice daily, oxycodone/APAP 7.5/325 twice daily, Protonix 40 mg daily, Restasis 0.5% twice daily, metoprolol 50 mg daily, Norvasc 5 mg daily, prednisone 5 mg daily, Cymbalta 60 mg daily, gabapentin 300 mg nightly, vitamin D3 daily, potassium chloride 20 mEq daily, vitamin D daily, vitamin C daily, Xanax 0.5 mg daily, multivitamin daily, probiotics daily, Systane eye lubricant 3 times daily, iron supplement daily, magnesium chloride supplement daily, Prolia every 6 months, calcium twice daily, atorvastatin 10 mg nightly.. Medications as follows: Vol delroy gel 1%, triamcinolone 0.1% cream, betamethasone dipropionate cream 0.05%, veterinary liniment gel. Current Medications Medications (Trade) Dose Ordered Sig/Alexia Start Time Stop Time Status Last Admin Dose Admin Cefazolin Sodium/ Dextrose 50 ml @ 100 mls/hr 1X ONCE 07/02/21 11:45 07/02/21 12:14 DC 07/02/21 12:09 100 MLS/HR Diphtheria/ Tetanus/Acell Pertussis (ADACEL TDap SYRINGE) 0.5 ml ONCE ONCE 07/02/21 11:45 07/02/21 11:46 DC Info (CONTRAST GIVEN -- Rx MONITORING) 1 each PRN DAILY PRN 07/02/21 12:30 07/04/21 12:29 Iohexol (Omnipaque 300 Mg/ml) 75 ml 1X ONCE 07/02/21 12:30 07/02/21 12:31 DC 07/02/21 12:40 75 ML (SADAF NEW APRN) Allergies: Allergies: Allergies Coded Allergies Type Severity Reaction Last Updated Verified Fish Containing Products Allergy Severe TUNA CAUSES THROAT SWELLING 11/05/15 Yes caffeine Allergy Intermediate Itching 11/05/15 Yes chocolate flavor Allergy Intermediate Itching 11/05/15 Yes hydrocodone Allergy Intermediate 10/12/14 Yes milk Allergy Intermediate Itching 11/25/13 Yes peanut Allergy Intermediate Itching, ALL NUTS 10/12/14 Yes peas Allergy Intermediate 02/17/16 Yes pilocarpine Allergy Intermediate 01/16/20 Yes propoxyphene napsylate Allergy Intermediate Itching 11/25/13 Yes tree nut Allergy Intermediate ITCHING, ALL NUTS 09/21/17 Yes gluten Allergy Mild 12/14/20 Yes celecoxib Adverse Reaction Intermediate Nausea and Vomiting 01/16/20 Yes (SADAF NEW APRN) Physical Exam: PE: Constitutional: Well developed, well nourished, no acute distress, non-toxic appearance. 80-year-old female in no apparent distress. HENT: Normocephalic, atraumatic. Eyes: Conjunctiva normal, no discharge. Neck: Normal range of motion, no stridor. Cardiovascular: No cyanosis appreciated, distal cap refill less than 2 seconds. Lungs & Thorax: Patient is in no respiratory distress, no audible adventitious lung sounds appreciated. Abdomen: Nontender, no abnormalities noted. Skin: Warm, dry, no erythema, no rash. See extremity note for focused skin examination Back: No tenderness, no deformities. Extremities: No tenderness, no cyanosis, no clubbing, ROM intact, no edema. Sent for left upper extremity forearm anterior aspect erythematous with mild swelling, induration measuring 13 x 9 cm, the concerning erythema is not circumferential, distal cap refill less than 2 seconds, 2+ brachial and radial pulse, full AROM/PROM of the adjacent joints of the left upper extremity. No loss of sensation distally or proximally. Red streaking proximally up mid upper arm with lymphangitis without axillary lymphadenopathy. Neurologic: Alert and oriented X 3, normal motor function, normal sensory function, no focal deficits noted. Psychologic: Affect normal, judgement normal, mood normal. (SADAF NEW APRN) Current Patient Data: Labs: Laboratory Tests Test 07/02/21 11:15 07/02/21 11:55 Urine Collection Type Unknown Urine Color Yellow Urine Clarity Clear Urine pH 7.0 Urine Specific [place] <=1.005 Urine Protein Negative mg/dL Urine Glucose (UA) Negative mg/dL Urine Ketones (Stick) Negative mg/dL Urine Blood Trace Urine Nitrite Negative Urine Bilirubin Negative Urine Urobilinogen Dipstick 0.2 mg/dL Urine Leukocyte Esterase Moderate Urine RBC 0 /HPF Urine WBC 20-40 /HPF Urine Squamous Epithelial Cells Few /LPF Urine Bacteria Moderate /HPF White Blood Count 9.1 x10^3/uL Red Blood Count 4.13 x10^6/uL Hemoglobin 12.8 g/dL Hematocrit 37.9 % Mean Corpuscular Volume 92 fL Mean Corpuscular Hemoglobin 31 pg Mean Corpuscular Hemoglobin Concent 34 g/dL Red Cell Distribution Width 12.8 % Platelet Count 268 x10^3/uL Neutrophils (%) (Auto) 82 % Lymphocytes (%) (Auto) 9 % Monocytes (%) (Auto) 8 % Eosinophils (%) (Auto) 1 % Basophils (%) (Auto) 0 % Neutrophils # (Auto) 7.5 x10^3/uL Lymphocytes # (Auto) 0.8 x10^3/uL Monocytes # (Auto) 0.7 x10^3/uL Eosinophils # (Auto) 0.1 x10^3/uL Basophils # (Auto) 0.0 x10^3/uL Erythrocyte Sedimentation Rate 47 Sodium Level 142 mmol/L Potassium Level 4.1 mmol/L Chloride Level 103 mmol/L Carbon Dioxide Level 32 mmol/L Anion Gap 7 Blood Urea Nitrogen 9 mg/dL Creatinine 0.7 mg/dL Estimated GFR (Cockcroft-Gault) 80.7 BUN/Creatinine Ratio 13 Glucose Level 130 mg/dL Lactic Acid Level 0.7 mmol/L Calcium Level 8.8 mg/dL Total Bilirubin 0.2 mg/dL Aspartate Amino Transf (AST/SGOT) 25 U/L Alanine Aminotransferase (ALT/SGPT) 33 U/L Alkaline Phosphatase 82 U/L C-Reactive Protein, Quantitative 72.2 mg/L Total Protein 6.7 g/dL Albumin 2.9 g/dL Albumin/Globulin Ratio 0.8 Current Medications Medications (Trade) Dose Ordered Sig/Alexia Route PRN Reason Start Time Stop Time Status Last Admin Dose Admin Diphtheria/ Tetanus/Acell Pertussis (ADACEL TDap SYRINGE) 0.5 ml ONCE ONCE VAX IM 07/02/21 11:45 07/02/21 11:46 DC Cefazolin Sodium/ Dextrose 50 ml @ 100 mls/hr 1X ONCE IV 07/02/21 11:45 07/02/21 12:14 DC 07/02/21 12:09 100 MLS/HR Iohexol (Omnipaque 300 Mg/ml) 75 ml 1X ONCE IV 07/02/21 12:30 07/02/21 12:31 DC 07/02/21 12:40 75 ML Info (CONTRAST GIVEN -- Rx MONITORING) 1 each PRN DAILY PRN MC SEE COMMENTS 07/02/21 12:30 07/04/21 12:29 Laboratory Tests Test 07/02/21 11:15 07/02/21 11:55 Urine Collection Type Unknown Urine Color Yellow Urine Clarity Clear Urine pH 7.0 (<5.0-8.0) Urine Specific [place] <=1.005 (1.000-1.030) Urine Protein Negative mg/dL (NEG-TRACE) Urine Glucose (UA) Negative mg/dL (NEG) Urine Ketones (Stick) Negative mg/dL (NEG) Urine Blood Trace (NEG) Urine Nitrite Negative (NEG) Urine Bilirubin Negative (NEG) Urine Urobilinogen Dipstick 0.2 mg/dL (0.2 mg/dL) Urine Leukocyte Esterase Moderate (NEG) Urine RBC 0 /HPF (0-2) Urine WBC 20-40 /HPF (0-4) Urine Squamous Epithelial Cells Few /LPF Urine Bacteria Moderate /HPF (0-FEW) White Blood Count 9.1 x10^3/uL (4.0-11.0) Red Blood Count 4.13 x10^6/uL (3.50-5.40) Hemoglobin 12.8 g/dL (12.0-15.5) Hematocrit 37.9 % (36.0-47.0) Mean Corpuscular Volume 92 fL (79-100) Mean Corpuscular Hemoglobin 31 pg (25-35) Mean Corpuscular Hemoglobin Concent 34 g/dL (31-37) Red Cell Distribution Width 12.8 % (11.5-14.5) Platelet Count 268 x10^3/uL (140-400) Neutrophils (%) (Auto) 82 % (31-73) H Lymphocytes (%) (Auto) 9 % (24-48) L Monocytes (%) (Auto) 8 % (0-9) Eosinophils (%) (Auto) 1 % (0-3) Basophils (%) (Auto) 0 % (0-3) Neutrophils # (Auto) 7.5 x10^3/uL (1.8-7.7) Lymphocytes # (Auto) 0.8 x10^3/uL (1.0-4.8) L Monocytes # (Auto) 0.7 x10^3/uL (0.0-1.1) Eosinophils # (Auto) 0.1 x10^3/uL (0.0-0.7) Basophils # (Auto) 0.0 x10^3/uL (0.0-0.2) Erythrocyte Sedimentation Rate 47 (0-25) H Sodium Level 142 mmol/L (136-145) Potassium Level 4.1 mmol/L (3.5-5.1) Chloride Level 103 mmol/L (98-107) Carbon Dioxide Level 32 mmol/L (21-32) Anion Gap 7 (6-14) Blood Urea Nitrogen 9 mg/dL (7-20) Creatinine 0.7 mg/dL (0.6-1.0) Estimated GFR (Cockcroft-Gault) 80.7 BUN/Creatinine Ratio 13 (6-20) Glucose Level 130 mg/dL (70-99) H Lactic Acid Level 0.7 mmol/L (0.4-2.0) Calcium Level 8.8 mg/dL (8.5-10.1) Total Bilirubin 0.2 mg/dL (0.2-1.0) Aspartate Amino Transferase (AST) 25 U/L (15-37) Alanine Aminotransferase (ALT) 33 U/L (14-59) Alkaline Phosphatase 82 U/L (46-116) C-Reactive Protein, Quantitative 72.2 mg/L (0-3.3) H Total Protein 6.7 g/dL (6.4-8.2) Albumin 2.9 g/dL (3.4-5.0) L Albumin/Globulin Ratio 0.8 (1.0-1.7) L Laboratory Tests 07/02/21 11:55 Laboratory Tests 07/02/21 11:55 Vital Signs: Vital Signs Date Time Temp Pulse Resp B/P (MAP) Pulse Ox O2 Delivery O2 Flow Rate FiO2 07/02/21 10:53 98.4 75 16 164/72 (75) 96 Room Air 98.4 (SADAF NEW APRN) EKG: EKG: [] (SADAF NEW APRN) Radiology/Procedures: Radiology/Procedures: PATIENT: EDEL GARNICAACCOUNT: [id number] : 1940 LOCATION: ER AGE: 80 SEX: F EXAM STATUS: REG ER ORD. PHYSICIAN: SADAF NEW APRN REASON: LUE cellulitis with lymphangitis, abscess vs osteomyelitis PROCEDURE: CT UPPER EXTREMTY W/CONTRST LT Site ID: [id number] EXAMINATION: CT LEFT UPPER EXTREMITY WITH. Technique: Axial images with coronal and sagittal reconstructions are performed of left upper extremity with intravenous contrast. 75 mL of Omnipaque 300 was administered intravenously. One or more of the following radiation dose reduction techniques was used: automated exposure control, adjustment of mA and/or KV according to patient size, and/or utilization of iterative reconstruction technique. HISTORY: 80 years Female Reason: LUE cellulitis with lymphangitis, abscess vs osteomyelitis . Left arm pain. COMPARISON: None. FINDINGS: In the left forearm there is subcutaneous the edema and swelling without fluid collection or abscess identified. The underlying radius and ulna demonstrate no focal erosion. There the muscles have a homogeneous the density and enhancement. There is mild engorgement of the left upper extremity veins, expected with the inflammation. IMPRESSION: Findings compatible with cellulitis in the left forearm with no underlying a bscess or bone erosion identified. Electronically signed by: John Maya MD (07/02/2021 1:28 PM) [id number] (SADAF NEW APRN) Course & Med Decision Making: Course & Med Decision Making Pertinent Labs and Imaging studies reviewed. (See chart for details) 80-year-old female, vital signs reviewed, presents emergency department concerning skin infection of her forearm for the past 15 days. Physical examination concerning for cellulitis, will start Ancef 2 g IV prophylactically, CBC, CMP, ESR and CRP, CT left upper extremity to rule out deep tissue infectious process, osteomyelitis. Patient CBC unremarkable,Chemistry unremarkable except for C-reactive protein elevated at 72.2, this is consistent with patient's presentation. The patient's urine is abnormal however most likely a contaminated catch. Will consult with patient's primary care physician Dr. Villanueva prior to discharge decision-making. Discussed patient case and ED work-up with patient's primary care physician Dr. Villanueva who agrees with emergency department treatment, Keflex 500 mg 4 times daily, Dr. Villanueva requested patient see him in his office tomorrow, call for an appointment today. Discussed with patient Dr. Villanueva's request, discussed with patient antibiotic therapy outpatient, side effects, return to ER precautions and concerns, amenable to ED discharge planning. Discussed with the patient all findings and diagnostic testing as well as the need to follow-up with their primary care provider for further evaluation and treatment or return to the ED if any new or worsening symptoms. Strict return precautions were also discussed at length, the patient voiced understanding and agreement with the discharge planning. The patient was nontoxic in appearance, in no apparent distress, and hemodynamically stable at the time of disposition. (SADAF NEW APRN) Dragon Disclaimer: Dragon Disclaimer: This electronic medical record was generated, in whole or in part, using a voice recognition dictation system. (SADAF NEW APRN) Departure Departure Impression: Primary Impression: Cellulitis of left forearm Disposition: HOME / SELF CARE / HOMELESS Condition: GOOD Referrals: TIMO VILLANUEVA MD (PCP) Patient Instructions: Cellulitis Additional Instructions: You were seen today in the emergency department for a infection to your left forearm. An extensive work-up was done today in the emergency department. This infection is called cellulitis. There were no signs of osteomyelitis or bone infection. This is an infection of your skin. You were started today on IV antibiotics called Ancef 2 g. Ice spoke with your primary care physician Dr. Villanueva who has requested to see you tomorrow in his office, please call for an appointment. I am starting you on antibiotic called Keflex, you will take this 4 times a day for the next 7 days. I have drawn a coquille around the infection site with an ink pen so that Dr. Villanueva can determine if the infection is spreading or getting better. Please do not wash this off until after Dr. Villanueva has examined your left forearm. Please take as directed until complete. Please return to the emergency department for worsening symptoms or other concerns. EMERGENCY DEPARTMENT GENERAL DISCHARGE INSTRUCTIONS Thank you for coming to [facility] Emergency Department (ED) today and trusting us with you care. We trust that you had a positive experience in our Emergency Department. If you wish to speak to the department management, you may call the Director at [phone]. YOUR FOLLOW UP INSTRUCTIONS ARE FOLLOWS: 1. Do you have a private Doctor? If you do not have a private doctor, please ask for a resource list of physicians or clinics that may be able to assist you with follow up care. 2. The Emergency Physicain has interpreted your x-rays. The X-Ray specialist will also review them. If there is a change in the findings, you will be notified in 48 hours when at all possible. 3. A lab test or culture has been done, your results will be reviewed and you will be notified if you need a change in treatment. ADDITIONAL INSTRUCTIONS AND INFORMATION: 1. Your care today has been supervised by a physician who is specially trained in emergency care. Many problems require more than one evaluation for a complete diagnosis and treatment. We recommend that you schedule your follow up appointment as recommended to ensure complete treatment of you illness or injury. If you are unable to obtain follow up care and continue to have a problem, or if your condition worsens, we recommend that you return to the ED. 2. We are not able to safely determine your condition over the phone nor are we able to give sound medical advice over the phone. For these safety reasons, if you call for medical advice we will ask you to come to the ED for further evaluation. 3. If you have any questions regarding these discharge instructions please call the ED at [phone]. SAFETY INFORMATION: In the interest of safety, wellness, and injury prevention; we encourage you to wear your sealbelt, if you smoke; quite smoking, and we encourage family to use a protective helmet for bicycling and other sporting events that present an increased risk for head injury. IF YOUR SYMPTOMS WORSEN OR NEW SYMPTOMS DEVELOP, OR YOU HAVE CONCERNS ABOUT YOUR CONDITION; OR IF YOUR CONDITION WORSENS WHILE YOU ARE WAITING FOR YOUR FOLLOW UP APPOINTMENT; EITHER CONTACT YOUR PRIMARY CARE DOCTOR, THE PHYSICIAN WHOSE NAME AND NUMBER YOU WERE GIVEN, OR RETURN TO THE ED IMMEDIATELY. Scripts Cephalexin (CEPHALEXIN) 500 Mg Tablet 1 TAB PO QID for skin infection for 7 Days, #28 TAB 0 Refills Prov: SADAF NEW APRN 07/02/21 Attending Signature I have participated in the care of this patient and I have reviewed and agree with all pertinent clinical information above including history, exam, and recommendations. (RUKHSANA GOLDSTEIN DO) SADAF NEW APRN Jul 02, 2021 14:21 RUKHSANA GOLDSTEIN DO Jul 02, 2021 15:45
[2021-07-02 15:12] VITALS: BP 173/79
[2021-07-02] MEDS ORDERED: CEPH500T PO (15:14)
== END 2021-07-02 15:44 | disposition home or self-care (01) ==
LOC: ER 10:06
DX: L03.114 Cellulitis of left upper limb (principal); K21.9 Gastro-esophageal reflux disease without esophagitis; I10 Essential (primary) hypertension; Z91.013 Allergy to seafood; Z88.5 Allergy status to narcotic agent; Z91.010 Allergy to peanuts; Z91.018 Allergy to other foods; Z88.8 Allergy status to other drugs, medicaments and biological substances; Z91.011 Allergy to milk products
CPT/HCPCS: 36415; 73201; 80053; 81001; 83605; 85025; 85651; 86140; 87040; 87077; 87086; 87186; 96365; 99285; J0690; Q9967

== ENCOUNTER 2021-08-18 07:37 | Inpatient (IN) | payer MEDICARE, MEDICAID ==
[~2021-08-18] VITALS: Ht 160 cm; Wt 61.0 kg
[~2021-08-18 07:37] MED LIST changes: +CEPH500T PO; -DULO60CA6 PO; +DULO60CA7 PO
[2021-08-18] MEDS ORDERED: IV NORMAL SALINE 1000ML BAG 1,000 ML IV ONE ×3 (07:45→16:30)
[2021-08-18] MEDS ORDERED: ACETAMINOPHEN 650 MG SUPP.RECT. PR ONE (07:45)
[2021-08-18] MEDS ORDERED: cefTRIAXone IV Push 1 GM VIAL. IVP ONE (07:45)
--- NOTE | 2021-08-18 08:06 | RAD ---
PROCEDURE: XR CHEST 1V.08/18/2021 8:03 AM REASON FOR STUDY: Reason: AMS / Spl. Instructions: / History: . COMPARISON: Study of 12/14/2020. FINDINGS: Depth of inspiration is shallow. Increased markings are similar to the previous study. No n ew infiltrate or effusion is seen. The heart does not appear enlarged. IMPRESSION: No acute findings. Shallow inspiration. Electronically signed by: Avery Florentino Jr., MD (08/18/2021 8:03 AM) [facility]ITAL[facility]
[2021-08-18 08:30] LABS: ALBUMIN 3.3 g/dL (3.4-5.0); ALBUMIN/GLOBULIN RATIO 0.8 (1.0-1.7); CALCIUM 8.6 mg/dL (8.5-10.1); CREATININE 1.2 mg/dL (0.6-1.0); GFR 43.3; MAGNESIUM 1.8 mg/dL (1.8-2.4); TOTAL BILIRUBIN 0.6 mg/dL (0.2-1.0); TOTAL PROTEIN 7.2 g/dL (6.4-8.2)
[2021-08-18 08:33] LABS: POTASSIUM 2.5 mmol/L (3.5-5.1)
[2021-08-18 08:36] LABS: BASO % 0 % (0-3); EOS % 0 % (0-3); HEMOGLOBIN 14.9 g/dL (12.0-15.5); LYMPH # 1.1 x10^3/uL (1.0-4.8); LYMPH % 6 % (24-48); MEAN CORPUSCULAR HEMOGLOBIN 31 pg (25-35); MEAN CORPUSCULAR HGB CONC 34 g/dL (31-37); MEAN CORPUSCULAR VOLUME 91 fL (79-100); MONO # 0.6 x10^3/uL (0.0-1.1); MONO % 4 % (0-9); NEUT # 15.6 x10^3/uL (1.8-7.7); NEUT % 90 % (31-73); PLATELET COUNT 219 x10^3/uL (140-400); RED BLOOD COUNT 4.82 x10^6/uL (3.50-5.40); RED CELL DISTRIBUTION WIDTH 12.7 % (11.5-14.5); WHITE BLOOD COUNT 17.4 x10^3/uL (4.0-11.0)
--- NOTE | 2021-08-18 08:54 | PHYS DOC ---
Past Medical History Past Medical History: Arthritis, Cancer, Fibromyalgia, GERD, High Cholesterol, Hypertension, UTI, Other Additional Past Medical Histor: autoimmune neuropathy, osteopenia/porosis, all rhinitis, polymyalgia rheuma Past Medical History Limited secondary to altered mental status Past Surgical History: Appendectomy, Cholecystectomy, Colectomy, Hysterectomy, Knee Replacement Additional Past Surgical Histo: D&C, Back sx, catarats, partial stomach resection Past Surgical History Limited secondary to altered mental status Smoking Status: Never Smoker Alcohol Use: None Drug Use: None Social History Limited secondary to altered mental status General Adult EDM: Chief Complaint: ALTERED MENTAL STATUS HPI: HPI: Patient is a 80 year old female presents via EMS with altered mental status. 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 Patient was taken to the [facility]. This morning noted patient with altered mental status. Patient last known well at approximately 0300 this morning. Patient states "help me "and is able to follow directions however does not answer questioning appropriately. No known trauma. EMS denies known exposure of patient for COV ID-19. It appears per documentation that patient did receive an influenza and Covid vaccination. History of present illness limited secondary to altered mental status. Review of Systems: Review of Systems: Review of systems limited secondary to altered mental status. Heart Score: C/O Chest Pain: N/A Current Medications: Current Medications Medications (Trade) Dose Ordered Sig/Alexia Start Time Stop Time Status Last Admin Dose Admin Acetaminophen (Tylenol Supp) 650 mg 1X ONCE 08/18/21 07:45 08/18/21 08:08 DC 08/18/21 08:42 650 MG Ceftriaxone Sodium (Rocephin) 1 gm 1X ONCE 08/18/21 07:45 08/18/21 08:08 DC 08/18/21 08:48 1 GM Sodium Chloride 1,000 ml @ 1,000 mls/hr 1X ONCE 08/18/21 07:45 08/18/21 08:44 DC 08/18/21 08:48 1,000 MLS/HR Allergies: Allergies: Allergies Coded Allergies Type Severity Reaction Last Updated Verified Fish Containing Products Allergy Severe TUNA CAUSES THROAT SWELLING 11/05/15 Yes caffeine Allergy Intermediate Itching 11/05/15 Yes chocolate flavor Allergy Intermediate Itching 11/05/15 Yes hydrocodone Allergy Intermediate 10/12/14 Yes milk Allergy Intermediate Itching 11/25/13 Yes peanut Allergy Intermediate Itching, ALL NUTS 10/12/14 Yes peas Allergy Intermediate 02/17/16 Yes pilocarpine Allergy Intermediate 01/16/20 Yes propoxyphene napsylate Allergy Intermediate Itching 11/25/13 Yes tree nut Allergy Intermediate ITCHING, ALL NUTS 09/21/17 Yes gluten Allergy Mild 12/14/20 Yes celecoxib Adverse Reaction Intermediate Nausea and Vomiting 01/16/20 Yes Physical Exam: PE: Constitutional: Elderly, well nourished, altered HENT: Normocephalic, atraumatic Eyes: PERRL, EOMI, conjunctiva normal, no discharge Neck: Normal range of motion, no tenderness, supple, no meningeal signs Lungs & Thorax: No respiratory distress, equal chest rise and fall, no rales, diminished at bases Cardiovascular: RRR, bilateral radial pulses +2 Abdomen: Soft, no tenderness, no guarding Skin: Warm, dry, no erythema, no rash Extremities: No tenderness, ROM intact, no edema Neurologic: GCS 13 (eye 4, verbal 3, motor 6), moves all extremities, sensation appears intact no focal deficits noted Psychologic: Limited, judgment abnormal Current Patient Data: Labs: Laboratory Tests Test 08/18/21 07:56 White Blood Count 17.4 x10^3/uL (4.0-11.0) H Red Blood Count 4.82 x10^6/uL (3.50-5.40) Hemoglobin 14.9 g/dL (12.0-15.5) Hematocrit 44.0 % (36.0-47.0) Mean Corpuscular Volume 91 fL (79-100) Mean Corpuscular Hemoglobin 31 pg (25-35) Mean Corpuscular Hemoglobin Concent 34 g/dL (31-37) Red Cell Distribution Width 12.7 % (11.5-14.5) Platelet Count 219 x10^3/uL (140-400) Neutrophils (%) (Auto) 90 % (31-73) H Lymphocytes (%) (Auto) 6 % (24-48) L Monocytes (%) (Auto) 4 % (0-9) Eosinophils (%) (Auto) 0 % (0-3) Basophils (%) (Auto) 0 % (0-3) Neutrophils # (Auto) 15.6 x10^3/uL (1.8-7.7) H Lymphocytes # (Auto) 1.1 x10^3/uL (1.0-4.8) Monocytes # (Auto) 0.6 x10^3/uL (0.0-1.1) Eosinophils # (Auto) 0.0 x10^3/uL (0.0-0.7) Basophils # (Auto) 0.0 x10^3/uL (0.0-0.2) Platelet Estimate Pending Sodium Level 136 mmol/L (136-145) Potassium Level 2.5 mmol/L (3.5-5.1) *L Chloride Level 97 mmol/L (98-107) L Carbon Dioxide Level 23 mmol/L (21-32) Anion Gap 16 (6-14) H Blood Urea Nitrogen 14 mg/dL (7-20) Creatinine 1.2 mg/dL (0.6-1.0) H Estimated GFR (Cockcroft-Gault) 43.3 BUN/Creatinine Ratio 12 (6-20) Glucose Level 134 mg/dL (70-99) H Lactic Acid Level 2.8 mmol/L (0.4-2.0) H Calcium Level 8.6 mg/dL (8.5-10.1) Magnesium Level 1.8 mg/dL (1.8-2.4) Total Bilirubin 0.6 mg/dL (0.2-1.0) Aspartate Amino Transferase (AST) 24 U/L (15-37) Alanine Aminotransferase (ALT) 36 U/L (14-59) Alkaline Phosphatase 96 U/L (46-116) Ammonia 21 mcmol/L (11-34) Creatine Kinase 83 U/L (26-192) Creatine Kinase MB (Mass) 1.6 ng/mL (0.0-3.6) Creatine Kinase MB Relative Index 1.9 % (0-4) Troponin I Quantitative 0.074 ng/mL (0.000-0.055) Total Protein 7.2 g/dL (6.4-8.2) Albumin 3.3 g/dL (3.4-5.0) L Albumin/Globulin Ratio 0.8 (1.0-1.7) L Lipase 39 U/L (73-393) L Laboratory Tests 08/18/21 07:56 Laboratory Tests 08/18/21 07:56 EKG: EKG: @0817 NSR at 94bpm, NO ST elevation, QRS 96ms, QT/QTc 376/476ms Radiology/Procedures: Radiology/Procedures: PROCEDURE: PORTABLE CHEST 1V PROCEDURE: XR CHEST 1V.08/18/2021 8:03 AM REASON FOR STUDY: Reason: AMS / Spl. Instructions: / History: . COMPARISON: Study of 12/14/2020. FINDINGS: Depth of inspiration is shallow. Increased markings are similar to the previous study. No new infiltrate or effusion is seen. The heart does not appear enlarged. IMPRESSION: No acute findings. Shallow inspiration. Electronically signed by: Avery Florentino Jr., MD (08/18/2021 8:03 AM) [facility]: CT HEAD WO CONTRAST CT HEAD/BRAIN WO History: Altered mental status Comparison: None. Technique: Noncontrast CT imaging was performed of the head. Findings: No intracranial hemorrhage. No mass effect. No hydrocephalus. No evidence of acute territorial infarction. There are a few scattered probably age-related punctate calcifications. Hypodensity of the periventricular and deep white matter consistent with chronic microvascular ischemic change. Postsurgical changes the lenses. Orbits are otherwise unremarkable. Imaged paranasal sinuses and mastoid air cells are clear. The scalp and calvarium are unremarkable. Impression: 1. No acute intracranial abnormality. ----- Exposure: One or more of the following individualized dose reduction techniques were utilized for this examination: 1. Automated exposure control 2. Adjustment of the mA and/or kV according to patient size 3. Use of iterative reconstruction technique. Electronically signed by: Jorden Larson MD (08/18/2021 9:10 AM) [facility] Course & Med Decision Making: Course & Med Decision Making Pertinent Labs and Imaging studies reviewed. (See chart for details) Elderly patient presents with report of altered mental status with last known well at 0300. Patient reportedly had had a fever yesterday and had gone to [facility]. Patient found this morning with continued fever and altered mental status. No history of known trauma. Denies known sick contacts. Paperwork with EMS noted patient appeared to have received influenza and Covid vaccinat ions. Fever addressed. CT head without acute finding. Chest x-ray clear. Labs obtained and posted to chart. WBC elevated. Lactic acid also elevated. Patient with concerns for severe sepsis given SIRS criteria met with lactic acidosis. Empiric antibiotic initiated. COVID-19 cannot be excluded. COVID-19 testing therefore obtained. Rapid Covid testing negative. Await PCR. Troponin slightly elevated. Hypokalemia also noted. IV potassium initiated. EKG stable. Will continue serial troponins. Aspirin provided. Patient requiring admission for further evaluation and treatment. Discussed with Dr. Villanueva (PCP) who is in agreement with admission. COVID-19 CRITERIA: The patient was evaluated during the global COVID-19 pandemic, and that diagnosis was suspected/considered upon their initial presentation. Their evaluation, treatment and testing was consistent with c urrent guidelines for patients who present with complaints or symptoms that may be related to COVID-19. Gurdeep Disclaimer: [employer] Disclaimer: This electronic medical record was generated, in whole or in part, using a voice recognition dictation system. Departure Departure Impression: Primary Impression: Altered mental status Qualified Codes: R41.82 - Altered mental status, unspecified Additional Impressions: Hypokalemia Elevated troponin Severe sepsis Suspected 2018 novel coronavirus infection Disposition: ADMITTED INPATIENT Admitting Physician: Timo Villanueva Condition: GUARDED Referrals: TIMO VILLANUEVA MD (PCP) COVID-19 Assessment: COVID-19 Patient Risks: Age 65 or older: Yes Sign of co-morbidity: Yes Exp to person + for COVID: No Exp to PUI: No Travel from affected area: No Lower respiratory symptoms: No Fever: No Other: Yes PPE Use: Full PPE with N95 mask or PAPR: Yes Critical Care Time Critical care time was 30 minutes which includes time at bedside, spent in discussion of patient's care with specialists and/or family members, with interpretation of laboratory and/or radiological studies and is exclusive of procedures. Date and Time of Reassessment Date: Aug 18, 2021 Time: 10:00 Fluid Challenge Is the fluid challenge complet: No IBW Target Volume Used: No BMI > 30: No Vital Signs Vital Signs: Vital Signs Date Time Temp Pulse Resp B/P (MAP) Pulse Ox O2 Delivery O2 Flow Rate FiO2 08/18/21 11:07 98.8 87 24 114/58 (76) 95 Room Air 98.8 Temperature Source: Axillary Respirations Respiratory Pattern: Normal Cardiovascular Pulse Rhythm: Regular Heart: S1 and S2 normal Lung Sounds Breath Sounds: Diminished Capillary Refil Capillary Refill: Rt Hand < 3 seconds Peripheral Pulse Pulse Location: Radial Pulse Strength: Normal (2+) Pulse Assessment Method: Palpation Integumentary Skin: Warm, Dry Skin Moisture: Dry Skin Turgor: Normal Skin Color: warm, dry Fingernail Color: WNL CUMMINGSSADAF PORRAS DO Aug 18, 2021 08:54
[2021-08-18 09:00] LABS: BILIRUBIN,URINE NEGATIVE (NEG); CLARITY,URINE CLEAR; COLOR,URINE YELLOW; NITRITE,URINE NEGATIVE (NEG); PH,URINE 6.5 (<5.0-8.0); PROTEIN,URINE NEGATIVE (NEG-TRACE); UROBILINOGEN,URINE 0.2 mg/dL (0.2 mg/dL)
[2021-08-18 09:11] LABS: BACTERIA,URINE 0 /HPF (0-FEW); WBC,URINE RARE /HPF (0-4)
--- NOTE | 2021-08-18 09:13 | RAD ---
CT HEAD/BRAIN WO History: Altered mental status Comparison: None. Technique: Noncontrast CT imaging was performed of the head. Findings: No intracranial hemorrhage. No mass effect. No hydrocephalus. No evidence of acute territorial infar ction. There are a few scattered probably age-related punctate calcifications. Hypodensity of the per iventricular and deep white matter consistent with chronic microvascular ischemic change. Postsurgical changes the lenses. Orbits are otherwise unremarkable. Imaged paranasal sinuses and mast oid air cells are clear. The scalp and calvarium are unremarkable. Impression: 1. No acute intracranial abnormality. ----- Exposure: One or more of the following individualized dose reduction techniques were utilized for thi s examination: 1. Automated exposure control 2. Adjustment of the mA and/or kV according to patient size 3. Use of iterative reconstruction technique. Electronically signed by: Jorden Larson MD (08/18/2021 9:10 AM) [facility]
[2021-08-18] MEDS ORDERED: IV NORMAL SALINE 500ML BAG 500 ML IV ONE (09:30)
[2021-08-18] MEDS ORDERED: ASPIRIN RECTAL 300 MG SUPP. PR ONE (09:30)
[2021-08-18 10:24] LABS: % ATYL 1 % (0-0); % BANDS 22 % (0-9); % LYMPHS 3 % (24-48); % MONOS 4 % (0-10); % SEGS 70 % (35-66); PLT ESTIMATE ADEQUATE (ADEQUATE)
[2021-08-18] MEDS: POTASSIUM CHLORIDE 10MEQ 100 ML IV SCH ×6 (10:37→16:29)
[2021-08-18] MEDS: ONDANSETRON PF 4 MG/2 ML VIAL. IVP PRN ×2 (10:53→14:43)
[2021-08-18] MEDS ORDERED: ACETAMINOPHEN 325 MG TABLET. PO PRN (11:15)
[2021-08-18] MEDS: POTASSIUM CHLORIDE 20 MEQ TABLET.ER. PO SCH ×2 (12:00→12:19)
[2021-08-18 12:02] VITALS: BP 128/52
[2021-08-18 12:06] LABS: INFLUENZA A PATIENT NEGATIVE (NEGATIVE); INFLUENZA B PATIENT NEGATIVE (NEGATIVE)
[2021-08-18] MEDS: predniSONE 5 MG TABLET PO SCH (12:17)
[2021-08-18] MEDS: cycloSPORINE 0.05% OPHTH DROPERETTE. OU SCH ×2 (12:19→21:25)
[2021-08-18] MEDS: MULTIVITAMIN with MINERAL TABLET. PO SCH (12:19)
[2021-08-18] MEDS: PANTOPRAZOLE 40 MG TABLET.DR. PO SCH (12:19)
[2021-08-18] MEDS: HEPARIN for SUB-Q USE 5,000 UNIT/ML VIAL. SQ SCH ×2 (12:34→21:26)
[2021-08-18] MEDS: DULoxetine HCL 30 MG CAPSULE.DR PO SCH (12:35)
[2021-08-18] MEDS: METOPROLOL SUCC 24HR ER 50 MG TAB.ER.24H. PO SCH (12:36)
[2021-08-18 13:00] VITALS: BP 148/78
[2021-08-18] MEDS ORDERED: PIP/TAZO PER PHARMACY MC PRN (13:00)
--- NOTE | 2021-08-18 13:13 | PDOC ---
Provider Note Date of Service: DATE: 08/18/21 TIME: 13:13 Provider Note H&P dictated #[id number] Justifications for Admission Other Justification TIMO JOHNSON MD Aug 18, 2021 13:13
[2021-08-18] MEDS ORDERED: VANCOMYCIN 1.5 GM in IV NORMAL SALINE 500ML BAG 500 ML IV ONE (13:30)
[2021-08-18] MEDS ORDERED: ELECTROLYTE (NON-ICU) PROTOCOL. MC PRN (14:15)
[2021-08-18] MEDS ORDERED: fentaNYL PF VIAL 100 MCG/2 ML VIAL IVP PRN ×2 (14:15)
[2021-08-18] MEDS: PIPERACILLIN/TAZOBACTAM 2.25 GM in IV NORMAL SALINE 50ML 50 ML IV SCH ×3 (14:16→23:34)
[2021-08-18] MEDS ORDERED: MAGNESIUM SULFATE 2GM 50 ML IV ONE (15:30)
[2021-08-18] MEDS ORDERED: FERR-36 PO (15:55)
[2021-08-18 16:00] VITALS: BP 127/70
[2021-08-18] MEDS ORDERED: ATOR10TA PO (16:13)
[2021-08-18] MEDS: VANCOMYCIN PER PHARMACY MC PRN (16:57)
--- NOTE | 2021-08-18 17:02 | NUR ---
Pharmacy Vancomycin Dosing Note S:Consulted to monitor and dose vancomycin started 08/18/21. O:EDEL GARNICA is a 80 year old F with Sepsis Pneumonia . Height: 5 feet, 3 inches Weight: 67.5 kg [place] Body Weight: 52.40 Adjusted Body Weight: 58.44 Dosing Weight: Actual Other Antibiotics: Zosyn 2.25gm IVPB q6hrs LABS: Last BUN: 14 Last Creatinine: 1.2 Creatinine Clearance: 35 mL/min Last WBC: 17.4 Last Procalcitonin: Tmax (past 24 hours): 102.3 Microbiology: I/O: Drug Levels: Last level: on at Last dose given 08/18/21 at 1417 Vancomycin Dosing: Loading Dose: 1500 mg x1 Dosing Weight: Actual Target Trough: 15-20 A: Based on weight and trough: P: 1. Vancomycin 1500mg, followed by Vancomycin 1000 mg IV q24h. 2. Follow up Trough level on 08/20/21 at 1330. 3. Pharmacy will continue to monitor, follow and adjust therapy as needed. Daniel Hernadez [facility], 08/18/21 1244
--- NOTE | 2021-08-18 18:04 | HP ---
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 She was taken [facility] and was noted to have change in mental status this morning and because of that, she was brought to the emergency room. In the emergency room, the patient was noted to have some confusion. She was noted to have a high-grade fever. Temperature was 101.7. The patient has been vaccinated for COVID-19. Her influenza A and B test as well as COVID-19 antigen as well as RNA tests were negative. She was noted to have potassium of 2.5, sodium 136, BUN 14, creatinine 1.2, CO2 of 23, magnesium 1.8, AST 24, ALT 36, albumin 3.3. CK 83, CK-MB 1.6, CK-MB relative index 1.9. WBC count 17.4, hemoglobin 14.9, platelet count is 219,000, polys 90. Lactic acid level is 2.8 and followup lactic acid level is 2.9. Troponin level 0.074. Lipase 39. Urinalysis is negative except for moderate blood and 11-20 rbc's, rare wbc's, 0 bacteria, nitrite negative. CT scan of head and chest x-ray did not show any acute abnormalities. Because of sepsis and hypokalemia and multiple medical problems, the patient was admitted for further evaluation and management. The patient is also known to be on prednisone for polymyalgia rheumatica. She also has fibromyalgia. She has rheumatoid arthritis and is on chronic prednisone dose. Because of her multiple medical problems, the patient is admitted to ICU for further management. SYSTEMS REVIEW: At present time, the patient is forgetful. She is able to give me some answers. She is somewhat obtunded. She is responsive, but weak. She denies any cold, cough, congestion or dysuria. She admits to occasional diarrhea. Denies any nausea, vomiting or leg pain. PAST MEDICAL HISTORY: The patient has a history of chronic low back pain; polymyalgia rheumatica; osteoporosis; hypertension; chronic pain syndrome with underlying rheumatoid arthritis, on chronic prednisone and osteoarthritis with chronic outpatient management ; tortuous esophagus; hyperlipidemia; autoimmune neuropathy; psoriasis; CKD 2; history of dysphagia, resolved with stricture dilatation; gastroesophageal reflux disease; history of diverticulitis; history of cellulitis and UTI; degenerative disk disease of lumbar spine; history of stomach cancer, gastrectomy and chemotherapy; history of bilateral knee arthroplasty; history of superior endplate fracture at L4, atraumatic with history of osteoporosis. She also has a history of anemia. She has a history of esophageal adenocarcinoma, also has allergic rhinitis and TMJ . PAST SURGICAL HISTORY: Includes cataract removal, total knee replacement in 2013, hysterectomy, back surgery in 2009, Billroth II, subtotal gastrectomy. FAMILY HISTORY: Mother and sibling had cancer. SOCIAL HISTORY: No history of smoking, alcoholism or drug abuse. 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 ALLERGIES: TUNA CAUSES THROAT SWELLING; CAFFEINE CAUSES ITCHING; CELECOXIB CAUSES NAUSEA AND VOMITING; CHOCOLATE FLAVOR CAUSES ITCHING; MILK CAUSES ITCHING; PEANUT CAUSES ITCHING, WALNUTS. THE PATIENT HAS ALLERGY LISTED TO HYDROCODONE, BUT SHE IS ABLE TO TAKE OXYCODONE; PROPOXYPHENE NAPSYLATE, ITCHING; UNKNOWN. MEDICATIONS: Reviewed. The patient is on prednisone 5 mg daily. She is on oxycodone short-acting as well as long-acting. She is also on Xanax. For details, please refer to the orders and medication list. PHYSICAL EXAMINATION: VITAL SIGNS: Temperature 101.7, pulse 93 per minute, respirations 22 per minute, blood pressure 136/62 mmHg. The patient's current blood pressure is 128/52 mmHg. GENERAL: The patient is an elderly female who is sleepy and appears to be acutely ill, but wakes up and trying to answer some questions. EYES: Pupils reactive to light. Conjunctivae pale. Sclerae muddy. HENT: Partial exam unremarkable. NECK: Supple. JVP normal. No thyromegaly. Trachea midline. LUNGS: Clear with decreased breath sounds at bases. CARDIOVASCULAR: S1, S2, regular. ABDOMEN: Soft, nontender, no guarding, no rigidity. Bowel sounds present. EXTREMITIES: No edema. CENTRAL NERVOUS SYSTEM: Weak and tired, forgetful. Moves all extremities. Unable to do full exam as she is not able to cooperate. There is also a language barrier. SKIN: Warm and dry. There is no cellulitis. LABORATORY FINDINGS: As noted earlier. IMPRESSION: 1. Sepsis. 2. Severe hypokalemia. 3. Elevated troponin. 4. Elevated lactic acid level. 5. Polymyalgia rheumatica. 6. Osteoarthritis. 7. Rheumatoid arthritis, on prednisone. 8. Hypertension. 9. Tortuous esophagus. 10. Hyperlipidemia. 11. Autoimmune neuropathy. 12. Psoriasis. 13. Chronic kidney disease 2. 14. History of dysphagia and history of esophageal stricture dilatation. 15. History of esophageal adenocarcinoma, status post gastrectomy and chemotherapy. 16. Degenerative disk disease. PLAN: For sepsis, order blood cultures, UA and chest x-ray are negative. Follow up cultures. The patient was given IV Rocephin in the emergency room. I will give her IV Zosyn and vancomycin. Currently this week, Infectious Disease specialist are not available at [facility]. Consult Dr. Lund for elevated troponin level. Replace potassium. Use hypokalemia protocol. Give IV fluids. Recheck labs in a.m. Admit to intensive care unit. I will resume some of her medications, but some of them I am going to hold, especially the long-acting oxycodone because of her acute mental status changes and acute metabolic encephalopathy. For details, please refer to the orders. Prognosis of this patient is poor due to her multiple medical problems. SONYA/STEPHANI/HONG DR: SONYA/celena TID: [id number]
[2021-08-18 20:00] VITALS: BP 113/46
[2021-08-18] MEDS: GABAPENTIN 300 MG CAPSULE. PO SCH (21:25)
--- NOTE | 2021-08-18 23:22 | PDOC2 ---
CARDIOLOGY CONSULT NOTE DATE OF SERVICE: DATE: 08/18/21 TIME: 23:15 CHIEF COMPLAINT: Confusion HPI: 80 y.o woman presented to hospital for mental status changes. She was noted to have fever and elevated troponin. Cardiology has been consulted to comment on troponin elevation. Patient is a poor historian due to mental status issues but denies any chest pain or dyspnea. No palpitations or syncope. ER course notable for treatment for sepsis and negative infectious w/u thus far for the source. PMHX: PMR HTN GERD Appendectomy Cholecystectomy SOCHX: Lives at the [facility]. No alcohol, tob or illicits. FAMHX: NC CURRENT MEDS: Current Medications Medications (Trade) Dose Ordered Sig/Alexia Route PRN Reason Start Time Stop Time Status Last Admin Dose Admin Sodium Chloride 1,000 ml @ 1,000 mls/hr 1X ONCE IV 08/18/21 07:45 08/18/21 08:44 DC 08/18/21 08:48 Acetaminophen (Tylenol Supp) 650 mg 1X ONCE [place] 08/18/21 07:45 08/18/21 08:08 DC 08/18/21 08:42 Ceftriaxone Sodium (Rocephin) 1 gm 1X ONCE IVP 08/18/21 07:45 08/18/21 08:08 DC 08/18/21 08:48 Potassium Chloride/Water 100 ml @ 100 mls/hr Q1H IV 08/18/21 09:00 08/18/21 12:59 DC 08/18/21 14:16 Aspirin (Aspirin Rectal Supp) 300 mg 1X ONCE AZ 08/18/21 09:30 08/18/21 09:43 DC 08/18/21 10:36 Sodium Chloride 1,000 ml @ 1,000 mls/hr 1X ONCE IV 08/18/21 09:30 08/18/21 10:29 DC 08/18/21 10:34 Sodium Chloride 500 ml @ 500 mls/hr 1X ONCE IV 08/18/21 09:30 08/18/21 10:29 DC 08/18/21 10:36 Ondansetron HCl (Zofran) 4 mg PRN Q8HRS PRN IVP NAUSEA/VOMITING 08/18/21 10:15 08/19/21 10:14 08/18/21 14:43 Potassium Chloride/Sodium Chloride 1,000 ml @ 100 mls/hr Q10H IV 08/18/21 11:00 08/18/21 22:45 Amlodipine Besylate (Norvasc) 5 mg DAILY PO 08/18/21 12:00 08/18/21 12:36 Cyclosporine (Restasis) 1 drop BID OU 08/18/21 12:00 08/18/21 21:25 Gabapentin (Neurontin) 400 mg HS PO 08/18/21 21:00 08/18/21 21:25 Pantoprazole Sodium (Protonix) 40 mg DAILYAC PO 08/18/21 11:30 08/18/21 12:19 Prednisone (Prednisone) 20 mg DAILY PO 08/18/21 11:15 08/18/21 12:17 Duloxetine HCl (Cymbalta) 60 mg DAILY PO 08/18/21 12:00 08/18/21 12:35 Metoprolol Succinate (Toprol Xl) 50 mg DAILY PO 08/18/21 12:00 08/18/21 12:36 Multivitamins (Thera M Plus) 1 tab DAILY PO 08/18/21 12:00 08/18/21 12:19 Acetaminophen (Tylenol) 650 mg PRN Q6HRS PRN PO MILD PAIN / TEMP > 100.3'F 08/18/21 11:15 08/18/21 16:19 Heparin Sodium (Porcine) (Heparin Sodium) 5,000 unit Q12HR SQ 08/18/21 11:15 08/18/21 21:26 Vancomycin HCl (Vanco Per Pharmacy) 1 each PRN DAILY PRN MC SEE COMMENTS 08/18/21 13:00 08/18/21 16:57 Vancomycin HCl 1.5 gm/Sodium Chloride 500 ml @ 250 mls/hr 1X ONCE IV 08/18/21 13:30 08/18/21 15:29 DC 08/18/21 14:17 Piperacillin Sod/ Tazobactam Sod 2.25 gm/Sodium Chloride 50 ml @ 100 mls/hr Q6HRS IV 08/18/21 14:00 08/18/21 18:17 Fentanyl Citrate (Fentanyl 2ml Vial) 50 mcg PRN Q2HR PRN IVP MODERATE TO SEVERE PAIN 08/18/21 14:15 08/18/21 14:43 Potassium Chloride/Water 100 ml @ 100 mls/hr Q1H IV 08/18/21 15:00 08/18/21 16:59 DC 08/18/21 16:29 Magnesium Sulfate 50 ml @ 25 mls/hr 1X ONCE IV 08/18/21 15:30 08/18/21 17:29 DC 08/18/21 16:33 Sodium Chloride 1,000 ml @ 1,000 mls/hr 1X ONCE IV 08/18/21 16:30 08/18/21 17:29 DC 08/18/21 16:35 ALLERGIES: Allergies Coded Allergies Type Severity Reaction Last Updated Verified Fish Containing Products Allergy Severe TUNA CAUSES THROAT SWELLING 11/05/15 Yes caffeine Allergy Intermediate Itching 11/05/15 Yes chocolate flavor Allergy Intermediate Itching 11/05/15 Yes hydrocodone Allergy Intermediate 10/12/14 Yes milk Allergy Intermediate Itching 11/25/13 Yes peanut Allergy Intermediate Itching, ALL NUTS 10/12/14 Yes peas Allergy Intermediate 02/17/16 Yes pilocarpine Allergy Intermediate 01/16/20 Yes propoxyphene napsylate Allergy Intermediate Itching 11/25/13 Yes tree nut Allergy Intermediate ITCHING, ALL NUTS 09/21/17 Yes gluten Allergy Mild 12/14/20 Yes celecoxib Adverse Reaction Intermediate Nausea and Vomiting 01/16/20 Yes ROS: Unable to be obtained due to the patient's clinical status. PHYSICAL EXAM: Vital Signs/I&O: Vital Signs Date Time Temp Pulse Resp B/P (MAP) Pulse Ox O2 Delivery O2 Flow Rate FiO2 08/18/21 20:00 101.2 89 21 113/46 (68) 94 Room Air 101.2 Physical Exam: GEN.: No apparent distress. Confused. HEENT: Head is normocephalic, atraumatic NECK: Supple. LUNGS: Clear to auscultation. HEART: RRR, S1, S2 present. Peripheral pulses intact ABDOMEN: Soft, nontender. Positive bowel sounds. EXTREMITIES: Without any cyanosis. NEUROLOGIC: Normal speech, normal tone PSYCHIATRIC: Normal affect, normal mood. SKIN: No ulcerations DIAGNOSTIC TESTING: Labs EKG CXR reviewed. ASSESSMENT: 1. Presumed sepsis syndrome 2. Type 2 NSTEMI PLAN: 1. Continue w/u of source of sepsis. 2. No further CV testing needed at this time. Supportive care. We will follow along. RACHEL STONE MD Aug 18, 2021 23:22
[2021-08-18 23:24] VITALS: BP 122/55
[2021-08-19] MEDS: POTASSIUM CHLORIDE 10MEQ 100 ML IV SCH ×8 (01:34→11:44)
[2021-08-19 03:14] VITALS: BP 140/56
[2021-08-19 05:02] LABS: BASO % 0 % (0-3); EOS % 0 % (0-3); HEMOGLOBIN 13.1 g/dL (12.0-15.5); LYMPH # 0.5 x10^3/uL (1.0-4.8); LYMPH % 4 % (24-48); MEAN CORPUSCULAR HEMOGLOBIN 31 pg (25-35); MEAN CORPUSCULAR HGB CONC 34 g/dL (31-37); MEAN CORPUSCULAR VOLUME 91 fL (79-100); MONO # 0.5 x10^3/uL (0.0-1.1); MONO % 3 % (0-9); NEUT # 13.1 x10^3/uL (1.8-7.7); NEUT % 93 % (31-73); PLATELET COUNT 179 x10^3/uL (140-400); RED BLOOD COUNT 4.27 x10^6/uL (3.50-5.40); RED CELL DISTRIBUTION WIDTH 13.3 % (11.5-14.5); WHITE BLOOD COUNT 14.1 x10^3/uL (4.0-11.0)
[2021-08-19 05:31] LABS: ALBUMIN 2.3 g/dL (3.4-5.0); ALBUMIN/GLOBULIN RATIO 0.7 (1.0-1.7); CALCIUM 7.5 mg/dL (8.5-10.1); CREATININE 0.9 mg/dL (0.6-1.0); GFR 60.4; MAGNESIUM 2.4 mg/dL (1.8-2.4); POTASSIUM 3.4 mmol/L (3.5-5.1); TOTAL BILIRUBIN 0.3 mg/dL (0.2-1.0); TOTAL PROTEIN 5.7 g/dL (6.4-8.2)
[2021-08-19] MEDS: PIPERACILLIN/TAZOBACTAM 2.25 GM in IV NORMAL SALINE 50ML 50 ML IV SCH (06:25)
[2021-08-19 07:00] VITALS: BP 140/57
[2021-08-19] MEDS: VANCOMYCIN PER PHARMACY MC PRN (08:11)
--- NOTE | 2021-08-19 08:29 | PDOC ---
IM PROGRESS NOTES- Subjective Subjective Complaints of generalized pain. She had diarrhea all night. She has had diarrhea for last 2 days. Patient is much more alert and responsive today. Objective Vitals/I&O Vital Signs Date Time Temp Pulse Resp B/P (MAP) Pulse Ox O2 Delivery O2 Flow Rate FiO2 08/19/21 07:00 99.1 95 18 140/57 (84) 93 Room Air 99.1 I & O 08/18/21 08/18/21 08/19/21 15:00 23:00 07:00 Intake Total 300 ml 5716 ml 1188 ml Output Total 350 ml 1150 ml 220 ml Balance -50 ml 4566 ml 968 ml Physical Exam Physical Exam GENERAL: The patient is an elderly female who is sleepy and appears to be acutely ill, but wakes up and trying to answer some questions. EYES: Pupils reactive to light. Conjunctivae pale. Sclerae muddy. HENT: Partial exam unremarkable. NECK: Supple. LUNGS: Clear with decreased breath sounds at bases. CARDIOVASCULAR: S1, S2, regular. ABDOMEN: Soft, non tender, no guarding, no rigidity. Bowel sounds overactive EXTREMITIES: No edema. CENTRAL NERVOUS SYSTEM: Weak and tired, forgetful. Moves all extremities. Unable to do full exam as she is not able to cooperate. There is also a language barrier. SKIN: Warm and dry. Labs Laboratory Tests Test 08/18/21 08:46 08/18/21 11:35 08/18/21 12:05 08/18/21 13:35 Urine Collection Type Unknown Urine Color Yellow Urine Clarity Clear Urine pH 6.5 (<5.0-8.0) Urine Specific [place] 1.015 (1.000-1.030) Urine Protein Negative mg/dL (NEG-TRACE) Urine Glucose (UA) Negative mg/dL (NEG) Urine Ketones (Stick) Negative mg/dL (NEG) Urine Blood Moderate (NEG) Urine Nitrite Negative (NEG) Urine Bilirubin Negative (NEG) Urine Urobilinogen Dipstick 0.2 mg/dL (0.2 mg/dL) Urine Leukocyte Esterase Negative (NEG) Urine RBC 11-20 /HPF (0-2) Urine WBC Rare /HPF (0-4) Urine Squamous Epithelial Cells Occ /LPF Urine Bacteria 0 /HPF (0-FEW) Influenza Type A Antigen Negative (NEGATIVE) Influenza Type B Antigen Negative (NEGATIVE) Lactic Acid Level 2.9 mmol/L (0.4-2.0) H Troponin I Quantitative 0.039 ng/mL (0.000-0.055) Test 08/18/21 16:10 08/18/21 19:00 08/19/21 04:25 Troponin I Quantitative 0.048 ng/mL (0.000-0.055) EU-Fck-B-Type Natriuretic Peptide 9477 pg/mL (0-449) H Potassium Level 3.3 mmol/L (3.5-5.1) L 3.4 mmol/L (3.5-5.1) L Lactic Acid Level 2.8 mmol/L (0.4-2.0) H 1.0 mmol/L (0.4-2.0) White Blood Count 14.1 x10^3/uL (4.0-11.0) H Red Blood Count 4.27 x10^6/uL (3.50-5.40) Hemoglobin 13.1 g/dL (12.0-15.5) Hematocrit 39.0 % (36.0-47.0) Mean Corpuscular Volume 91 fL (79-100) Mean Corpuscular Hemoglobin 31 pg (25-35) Mean Corpuscular Hemoglobin Concent 34 g/dL (31-37) Red Cell Distribution Width 13.3 % (11.5-14.5) Platelet Count 179 x10^3/uL (140-400) Neutrophils (%) (Auto) 93 % (31-73) H Lymphocytes (%) (Auto) 4 % (24-48) L Monocytes (%) (Auto) 3 % (0-9) Eosinophils (%) (Auto) 0 % (0-3) Basophils (%) (Auto) 0 % (0-3) Neutrophils # (Auto) 13.1 x10^3/uL (1.8-7.7) H Lymphocytes # (Auto) 0.5 x10^3/uL (1.0-4.8) L Monocytes # (Auto) 0.5 x10^3/uL (0.0-1.1) Eosinophils # (Auto) 0.0 x10^3/uL (0.0-0.7) Basophils # (Auto) 0.0 x10^3/uL (0.0-0.2) Sodium Level 136 mmol/L (136-145) Chloride Level 107 mmol/L (98-107) Carbon Dioxide Level 18 mmol/L (21-32) L Anion Gap 11 (6-14) Blood Urea Nitrogen 14 mg/dL (7-20) Creatinine 0.9 mg/dL (0.6-1.0) Estimated GFR (Cockcroft-Gault) 60.4 BUN/Creatinine Ratio 16 (6-20) Glucose Level 126 mg/dL (70-99) H Calcium Level 7.5 mg/dL (8.5-10.1) L Magnesium Level 2.4 mg/dL (1.8-2.4) Total Bilirubin 0.3 mg/dL (0.2-1.0) Aspartate Amino Transferase (AST) 40 U/L (15-37) H Alanine Aminotransferase (ALT) 32 U/L (14-59) Alkaline Phosphatase 70 U/L (46-116) Total Protein 5.7 g/dL (6.4-8.2) L Albumin 2.3 g/dL (3.4-5.0) L Albumin/Globulin Ratio 0.7 (1.0-1.7) L Procalcitonin 9.41 ng/mL (0.00-0.10) H Laboratory Tests 08/19/21 04:25 Laboratory Tests 08/18/21 19:00 08/19/21 04:25 Meds Current Medications Medications (Trade) Dose Ordered Sig/Alexia Route PRN Reason Start Time Stop Time Status Last Admin Dose Admin Potassium Chloride/Water 100 ml @ 100 mls/hr Q1H IV 08/18/21 09:00 08/18/21 12:59 DC 08/18/21 14:16 Aspirin (Aspirin Rectal Supp) 300 mg 1X ONCE MO 08/18/21 09:30 08/18/21 09:43 DC 08/18/21 10:36 Sodium Chloride 1,000 ml @ 1,000 mls/hr 1X ONCE IV 08/18/21 09:30 08/18/21 10:29 DC 08/18/21 10:34 Sodium Chloride 500 ml @ 500 mls/hr 1X ONCE IV 08/18/21 09:30 08/18/21 10:29 DC 08/18/21 10:36 Ondansetron HCl (Zofran) 4 mg PRN Q8HRS PRN IVP NAUSEA/VOMITING 08/18/21 10:15 08/19/21 10:14 08/18/21 14:43 Potassium Chloride/Sodium Chloride 1,000 ml @ 100 mls/hr Q10H IV 08/18/21 11:00 08/18/21 22:45 Amlodipine Besylate (Norvasc) 5 mg DAILY PO 08/18/21 12:00 08/18/21 12:36 Cyclosporine (Restasis) 1 drop BID OU 08/18/21 12:00 08/18/21 21:25 Gabapentin (Neurontin) 400 mg HS PO 08/18/21 21:00 08/18/21 21:25 Pantoprazole Sodium (Protonix) 40 mg DAILYAC PO 08/18/21 11:30 08/18/21 12:19 Prednisone (Prednisone) 20 mg DAILY PO 08/18/21 11:15 08/18/21 12:17 Duloxetine HCl (Cymbalta) 60 mg DAILY PO 08/18/21 12:00 08/18/21 12:35 Metoprolol Succinate (Toprol Xl) 50 mg DAILY PO 08/18/21 12:00 08/18/21 12:36 Multivitamins (Thera M Plus) 1 tab DAILY PO 08/18/21 12:00 08/18/21 12:19 Acetaminophen (Tylenol) 650 mg PRN Q6HRS PRN PO MILD PAIN / TEMP > 100.3'F 08/18/21 11:15 08/18/21 16:19 Heparin Sodium (Porcine) (Heparin Sodium) 5,000 unit Q12HR SQ 08/18/21 11:15 08/18/21 21:26 Vancomycin HCl (Vanco Per Pharmacy) 1 each PRN DAILY PRN MC SEE COMMENTS 08/18/21 13:00 08/19/21 08:11 Vancomycin HCl 1.5 gm/Sodium Chloride 500 ml @ 250 mls/hr 1X ONCE IV 08/18/21 13:30 08/18/21 15:29 DC 08/18/21 14:17 Piperacillin Sod/ Tazobactam Sod 2.25 gm/Sodium Chloride 50 ml @ 100 mls/hr Q6HRS IV 08/18/21 14:00 08/19/21 08:18 DC 08/19/21 06:25 Fentanyl Citrate (Fentanyl 2ml Vial) 50 mcg PRN Q2HR PRN IVP MODERATE TO SEVERE PAIN 08/18/21 14:15 08/18/21 14:43 Potassium Chloride/Water 100 ml @ 100 mls/hr Q1H IV 08/18/21 15:00 08/18/21 16:59 DC 08/18/21 16:29 Magnesium Sulfate 50 ml @ 25 mls/hr 1X ONCE IV 08/18/21 15:30 08/18/21 17:29 DC 08/18/21 16:33 Sodium Chloride 1,000 ml @ 1,000 mls/hr 1X ONCE IV 08/18/21 16:30 08/18/21 17:29 DC 08/18/21 16:35 Potassium Chloride/Water 100 ml @ 100 mls/hr Q1H IV 08/19/21 01:45 08/19/21 05:44 DC 08/19/21 04:40 Potassium Chloride/Water 100 ml @ 100 mls/hr Q1H IV 08/19/21 07:15 08/19/21 11:14 08/19/21 07:13 Assessment Assessment For sepsis, order blood cultures, UA and chest x-ray are negative. Follow up cultures. The patient was given IV Rocephin in the emergency room. I will give her IV Zosyn and vancomycin. Currently this week, Infectious Disease specialist are not available at [facility]. Blood cultures are negative so far. Recheck labs in a.m. Monitor temperature pattern. Procalcitonin level is high. Lactic acid level has decreased to 1. Type II non-ST elevation MD. BNP is elevated. Clinically she has been dry on initial examination. Consult Dr. Lund for elevated troponin level. Hypokalemia- Replace potassium. Use hypokalemia protocol protocol. Give IV fluids. Recheck labs in a.m. Admit to intensive care unit. Acute metabolic encephalopathy much better. Acute gastroenteritis.-I do not believe that she had any antibiotics recently. Consult Dr. Bush for GI evaluation and management. May need Cipro if acute gastroenteritis is the cause of her sepsis. Stool studies. Diarrhea may also be partly due to withdrawal from her higher dose of pain medications. She has been eating chestnuts and she is allergic to peanuts. I will resume some of her medications, but some of them I am going to hold, especially the long-acting oxycodone because of her acute mental status changes and acute metabolic encephalopathy. For details, please refer to the orders. Prognosis of this patient is poor due to her multiple medical problems. Plan Plan For more details regarding further plans, please refer to the orders. Justifications for Admission Other Justification TIMO JOHNSON MD Aug 19, 2021 08:29
[2021-08-19] MEDS ORDERED: ELECTROLYTE (ICU) PROTOCOL. MC PRN (08:30)
[2021-08-19] MEDS: ONDANSETRON PF 4 MG/2 ML VIAL. IVP PRN (08:37)
[2021-08-19] MEDS: PANTOPRAZOLE 40 MG TABLET.DR. PO SCH (08:40)
[2021-08-19] MEDS: DULoxetine HCL 30 MG CAPSULE.DR PO SCH (08:40)
[2021-08-19] MEDS: predniSONE 5 MG TABLET PO SCH (08:40)
[2021-08-19] MEDS: METOPROLOL SUCC 24HR ER 50 MG TAB.ER.24H. PO SCH (08:40)
[2021-08-19] MEDS: cycloSPORINE 0.05% OPHTH DROPERETTE. OU SCH ×2 (08:40→20:08)
[2021-08-19] MEDS: MULTIVITAMIN with MINERAL TABLET. PO SCH (08:41)
[2021-08-19] MEDS: HEPARIN for SUB-Q USE 5,000 UNIT/ML VIAL. SQ SCH ×2 (08:44→20:09)
[2021-08-19] MEDS: LACTOBACILLUS RHAMNOSUS GG 1 CAPSULE. PO SCH ×2 (08:44→20:08)
--- NOTE | 2021-08-19 10:35 | PDOC ---
YOKO POP KEVIN 08/19/21 1035: CARDIO Progress Notes Date and Time Date of Service 08/19/21 Time of Evaluation 1030 Subjective Subjective: No Chest Pain, No shortness of breath, No Palpitations, Other (c/o all over body aches ) Vitals Vitals Vital Signs Date Time Temp Pulse Resp B/P (MAP) Pulse Ox O2 Delivery O2 Flow Rate FiO2 08/19/21 08:40 95 140/57 08/19/21 08:00 Room Air 08/19/21 07:00 99.1 18 93 99.1 Weight Weight [ ] Input and Output Intake and Output Intake and Output 08/19/21 07:00 Intake Total 7204 ml Output Total 1720 ml Balance 5484 ml Intake Oral 300 ml IV Total 6904 ml Output Urine Total 1720 ml # Bowel Movements 8 Laboratory Labs Laboratory Tests Test 08/18/21 11:35 08/18/21 12:05 08/18/21 13:35 08/18/21 16:10 Influenza Type A Antigen Negative (NEGATIVE) Influenza Type B Antigen Negative (NEGATIVE) Lactic Acid Level 2.9 mmol/L (0.4-2.0) Troponin I Quantitative 0.039 ng/mL (0.000-0.055) 0.048 ng/mL (0.000-0.055) FS-Vju-Y-Type Natriuretic Peptide 9477 pg/mL (0-449) Test 08/18/21 19:00 08/19/21 04:25 Potassium Level 3.3 mmol/L (3.5-5.1) 3.4 mmol/L (3.5-5.1) Lactic Acid Level 2.8 mmol/L (0.4-2.0) 1.0 mmol/L (0.4-2.0) White Blood Count 14.1 x10^3/uL (4.0-11.0) Red Blood Count 4.27 x10^6/uL (3.50-5.40) Hemoglobin 13.1 g/dL (12.0-15.5) Hematocrit 39.0 % (36.0-47.0) Mean Corpuscular Volume 91 fL (79-100) Mean Corpuscular Hemoglobin 31 pg (25-35) Mean Corpuscular Hemoglobin Concent 34 g/dL (31-37) Red Cell Distribution Width 13.3 % (11.5-14.5) Platelet Count 179 x10^3/uL (140-400) Neutrophils (%) (Auto) 93 % (31-73) Lymphocytes (%) (Auto) 4 % (24-48) Monocytes (%) (Auto) 3 % (0-9) Eosinophils (%) (Auto) 0 % (0-3) Basophils (%) (Auto) 0 % (0-3) Neutrophils # (Auto) 13.1 x10^3/uL (1.8-7.7) Lymphocytes # (Auto) 0.5 x10^3/uL (1.0-4.8) Monocytes # (Auto) 0.5 x10^3/uL (0.0-1.1) Eosinophils # (Auto) 0.0 x10^3/uL (0.0-0.7) Basophils # (Auto) 0.0 x10^3/uL (0.0-0.2) Sodium Level 136 mmol/L (136-145) Chloride Level 107 mmol/L (98-107) Carbon Dioxide Level 18 mmol/L (21-32) Anion Gap 11 (6-14) Blood Urea Nitrogen 14 mg/dL (7-20) Creatinine 0.9 mg/dL (0.6-1.0) Estimated GFR (Cockcroft-Gault) 60.4 BUN/Creatinine Ratio 16 (6-20) Glucose Level 126 mg/dL (70-99) Calcium Level 7.5 mg/dL (8.5-10.1) Magnesium Level 2.4 mg/dL (1.8-2.4) Total Bilirubin 0.3 mg/dL (0.2-1.0) Aspartate Amino Transf (AST/SGOT) 40 U/L (15-37) Alanine Aminotransferase (ALT/SGPT) 32 U/L (14-59) Alkaline Phosphatase 70 U/L (46-116) Total Protein 5.7 g/dL (6.4-8.2) Albumin 2.3 g/dL (3.4-5.0) Albumin/Globulin Ratio 0.7 (1.0-1.7) Procalcitonin 9.41 ng/mL (0.00-0.10) Microbiology Micro Microbiology 08/18/21 Blood Culture - Preliminary, Resulted NO GROWTH AFTER 1 DAY Physical Exam Chest: Symmetric LUNGS: Other (diminished base) Heart: RRR (SR) Abdomen: Soft N/T Extremities: No Edema Neurology: alert, oriented, follow commands Assessment Assessment 1. Leukocytosis, lactic acidosis, fevers, sepsis. ? source. BC negative so far. C-diff negative 2. Mild troponin elevation; highest 0.074. Most probably type II, demand ischemia in setting of above. Cp free 3. Hypertension; controlled overall 4. Metabolic encephalopathy; improved 5. Hypokalemia; replaced 6. PUI; COVID negative Recommendations Follow cultures Supportive care from a CV standpoint Could consider outpatient echo Justicifation of Admission Dx: Justifications for Admission: Justification of Admission Dx: Yes Comments: sepsis RACHEL STONE MD 08/19/21 1610: CARDIO Progress Notes Plan Plan The patient was seen and interviewed as well as examined at the bedside. The chart was reviewed. The case was discussed. Agree with the plan of care. YOKO POP APRN Aug 19, 2021 10:35 RACHEL STONE MD Aug 19, 2021 16:10
[2021-08-19 11:00] VITALS: BP 116/54
[2021-08-19] MEDS: PIPERACILLIN/TAZOBACTAM 3.375 GM in IV NORMAL SALINE 50ML 50 ML IV SCH ×3 (11:48→23:36)
[2021-08-19] MEDS: oxyCODONE/APAP 7.5/325 1 TAB TABLET PO PRN ×2 (11:59→20:08)
--- NOTE | 2021-08-19 12:56 | PDOC2 ---
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 Diarrhea began last Thursday w/o precipitating events - frequent, watery, non- bloody. Does mention she was eating nuts from a tree that grows in the backyard - says squirrels eat these too. Might have had abdominal pain after eating these once recently - no pain now. Has h/o occasional diarrhea in the past but this is much more significant. Noted w/ AMS and evaluated at ER for this, admitted w/ sepsis. Nursing reports lots of watery stool. Tolerating diet (oatmeal this morning) - many food allergies. Denies reflux, dysphagia, n/v, constipation, hematochezia, melena, or weight loss. H/o gastric adenocarcinoma s/p subtotal gastrectomy. Many past EGDs - last documented here in 10/[address] Arnoldo Villanueva w/ tortuous esophagitis (dilated to 51Fr) and subtotal gastrectomy w/ Billrtoh II anatomy. Colonoscopy for h/o colon polyp in 11/[address] Villanueva was unremarkable. S/p cholecystectomy. No liver or pancreas history. Med list includes pantoprazole, iron, and prednisone. She tells me she doesn't take any "stomach" medications. C/o burning w/ urination. PMH: PMH: HTN, HLD, spinal stenosis, gastric cancer OA, osteoporosis, neuropathy, polymyalgia rheumatica subtotal gastrectomy, D&C, back surgery, appendectomy, cholecystectomy, hysterectomy, knee surgeries FH: Family History: No pertinent hx Social History: ALCOHOL: none ROS: GEN: Denies fevers, chills, sweats HEENT: Denies blurred vision, sore throat CV: Denies chest pain RESP: Denies shortness of air, cough GI: Per HPI : +dysuria ENDO: Denies weight changes NEURO: Denies confusion, dizziness MSK: Denies weakness, joint pain/swelling SKIN: Denies jaundice, pruritus Vitals: Vitals: Vital Signs Date Time Temp Pulse Resp B/P (MAP) Pulse Ox O2 Delivery O2 Flow Rate FiO2 08/19/21 11:59 18 97 Room Air 08/19/21 11:00 98.1 84 116/54 (74) 98.1 Labs: Labs: Laboratory Tests Test 08/18/21 13:35 08/18/21 16:10 08/18/21 19:00 08/19/21 04:25 Troponin I Quantitative 0.039 ng/mL (0.000-0.055) 0.048 ng/mL (0.000-0.055) GF-Bkt-V-Type Natriuretic Peptide 9477 pg/mL (0-449) Potassium Level 3.3 mmol/L (3.5-5.1) 3.4 mmol/L (3.5-5.1) Lactic Acid Level 2.8 mmol/L (0.4-2.0) 1.0 mmol/L (0.4-2.0) White Blood Count 14.1 x10^3/uL (4.0-11.0) Red Blood Count 4.27 x10^6/uL (3.50-5.40) Hemoglobin 13.1 g/dL (12.0-15.5) Hematocrit 39.0 % (36.0-47.0) Mean Corpuscular Volume 91 fL (79-100) Mean Corpuscular Hemoglobin 31 pg (25-35) Mean Corpuscular Hemoglobin Concent 34 g/dL (31-37) Red Cell Distribution Width 13.3 % (11.5-14.5) Platelet Count 179 x10^3/uL (140-400) Neutrophils (%) (Auto) 93 % (31-73) Lymphocytes (%) (Auto) 4 % (24-48) Monocytes (%) (Auto) 3 % (0-9) Eosinophils (%) (Auto) 0 % (0-3) Basophils (%) (Auto) 0 % (0-3) Neutrophils # (Auto) 13.1 x10^3/uL (1.8-7.7) Lymphocytes # (Auto) 0.5 x10^3/uL (1.0-4.8) Monocytes # (Auto) 0.5 x10^3/uL (0.0-1.1) Eosinophils # (Auto) 0.0 x10^3/uL (0.0-0.7) Basophils # (Auto) 0.0 x10^3/uL (0.0-0.2) Sodium Level 136 mmol/L (136-145) Chloride Level 107 mmol/L (98-107) Carbon Dioxide Level 18 mmol/L (21-32) Anion Gap 11 (6-14) Blood Urea Nitrogen 14 mg/dL (7-20) Creatinine 0.9 mg/dL (0.6-1.0) Estimated GFR (Cockcroft-Gault) 60.4 BUN/Creatinine Ratio 16 (6-20) Glucose Level 126 mg/dL (70-99) Calcium Level 7.5 mg/dL (8.5-10.1) Magnesium Level 2.4 mg/dL (1.8-2.4) Total Bilirubin 0.3 mg/dL (0.2-1.0) Aspartate Amino Transf (AST/SGOT) 40 U/L (15-37) Alanine Aminotransferase (ALT/SGPT) 32 U/L (14-59) Alkaline Phosphatase 70 U/L (46-116) Total Protein 5.7 g/dL (6.4-8.2) Albumin 2.3 g/dL (3.4-5.0) Albumin/Globulin Ratio 0.7 (1.0-1.7) Procalcitonin 9.41 ng/mL (0.00-0.10) BLOOD CULTURE Preliminary NO GROWTH AFTER 1 DAY Allergies: Coded Allergies: Fish Containing Products (Verified Allergy, Severe, TUNA CAUSES THROAT SWELLING, 11/05/15) caffeine (Verified Allergy, Intermediate, Itching, 11/05/15) chocolate flavor (Verified Allergy, Intermediate, Itching, 11/05/15) hydrocodone (Verified Allergy, Intermediate, 10/12/14) milk (Verified Allergy, Intermediate, Itching, 11/25/13) peanut (Verified Allergy, Intermediate, Itching, ALL NUTS, 10/12/14) peas (Verified Allergy, Intermediate, 02/17/16) pilocarpine (Verified Allergy, Intermediate, 01/16/20) propoxyphene napsylate (Verified Allergy, Intermediate, Itching, 11/25/13) tree nut (Verified Allergy, Intermediate, ITCHING, ALL NUTS, 09/21/17) gluten (Verified Allergy, Mild, 12/14/20) celecoxib (Verified Adverse Reaction, Intermediate, Nausea and Vomiting, 01/16/20) Medications: Current Medications Medications (Trade) Dose Ordered Sig/Alexia Route PRN Reason Start Time Stop Time Status Last Admin Dose Admin Gabapentin (Neurontin) 400 mg HS PO 08/18/21 21:00 08/18/21 21:25 Vancomycin HCl (Vanco Per Pharmacy) 1 each PRN DAILY PRN MC SEE COMMENTS 08/18/21 13:00 08/19/21 08:11 Vancomycin HCl 1.5 gm/Sodium Chloride 500 ml @ 250 mls/hr 1X ONCE IV 08/18/21 13:30 08/18/21 15:29 DC 08/18/21 14:17 Piperacillin Sod/ Tazobactam Sod 2.25 gm/Sodium Chloride 50 ml @ 100 mls/hr Q6HRS IV 08/18/21 14:00 08/19/21 08:18 DC 08/19/21 06:25 Fentanyl Citrate (Fentanyl 2ml Vial) 50 mcg PRN Q2HR PRN IVP MODERATE TO SEVERE PAIN 08/18/21 14:15 08/18/21 14:43 Potassium Chloride/Water 100 ml @ 100 mls/hr Q1H IV 08/18/21 15:00 08/18/21 16:59 DC 08/18/21 16:29 Magnesium Sulfate 50 ml @ 25 mls/hr 1X ONCE IV 08/18/21 15:30 08/18/21 17:29 DC 08/18/21 16:33 Sodium Chloride 1,000 ml @ 1,000 mls/hr 1X ONCE IV 08/18/21 16:30 08/18/21 17:29 DC 08/18/21 16:35 Potassium Chloride/Water 100 ml @ 100 mls/hr Q1H IV 08/19/21 01:45 08/19/21 05:44 DC 08/19/21 04:40 Potassium Chloride/Water 100 ml @ 100 mls/hr Q1H IV 08/19/21 07:15 08/19/21 11:14 DC 08/19/21 11:44 Lactobacillus Rhamnosus (Culturelle) 1 cap BID PO 08/19/21 09:00 08/19/21 08:44 Piperacillin Sod/ Tazobactam Sod 3.375 gm/Sodium Chloride 50 ml @ 100 mls/hr Q6HRS IV 08/19/21 12:00 08/19/21 11:48 Imaging: Imaging: CXR IMPRESSION: No acute findings. Shallow inspiration. Head CT Impression: 1. No acute intracranial abnormality. PE: GEN: NAD HEENT: Atraumatic, PERRL LUNGS: CTAB HEART: RRR ABD: NABS, S/ND/NT EXTREMITY: No edema SKIN: No rashes, no jaundice NEURO/PSYCH: A & O 3, mostly [place]-speaking A/P: A/P: AMS (better), sepsis Leukocytosis (better), lactic acidosis (resolved), hypokalemia (better) Diarrhea H/o gastric adenocarcinoma s/p subtotal gastrectomy CRC screen - last 11/2015, unremarkable S/p cholecystectomy COVID, flu, and C Diff negative -- Await pending stool tests. Okay for PO per GI. ?Imodium PETER-KENDALL BUTT Aug 19, 2021 12:56
[2021-08-19] MEDS ORDERED: VANCOMYCIN 1 GM in IV NORMAL SALINE 250ML 250 ML IV SCH (14:00)
[2021-08-19 15:00] VITALS: BP 123/49
--- NOTE | 2021-08-19 15:29 | NUR ---
SS following for discharge planning. SS reviewed pt chart and discussed with pt RN. 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 COVID19 negative. Pt is currently on room air. Cardiology following. GI consulted. Pt on IV Vancomycin and IV Zosyn. Labs pending. Per [employer] packet does NOT need to be faxed. They requested that packet just be sent with pt on discharge. SS will continue to follow for discharge planning.
[2021-08-19] MEDS: POTASSIUM CHLORIDE 20 MEQ TABLET.ER. PO SCH (16:54)
[2021-08-19 20:00] VITALS: BP 152/67
[2021-08-19] MEDS: GABAPENTIN 300 MG CAPSULE. PO SCH (20:08)
[2021-08-19] MEDS: GABAPENTIN 400 MG CAPSULE. PO SCH (21:00)
[2021-08-19] MEDS: ALPRAZolam 0.5 MG TABLET PO PRN (21:02)
[2021-08-20 01:57] VITALS: BP_SYST 114; BP_SYST 174; BP_DIAS 58; BP_DIAS 75
[2021-08-20 04:55] LABS: BASO % 0 % (0-3); EOS % 0 % (0-3); HEMATOCRIT 36.9 % (36.0-47.0); HEMOGLOBIN 12.3 g/dL (12.0-15.5); LYMPH # 0.6 x10^3/uL (1.0-4.8); LYMPH % 6 % (24-48); MEAN CORPUSCULAR HEMOGLOBIN 31 pg (25-35); MEAN CORPUSCULAR HGB CONC 33 g/dL (31-37); MEAN CORPUSCULAR VOLUME 92 fL (79-100); MONO # 0.7 x10^3/uL (0.0-1.1); MONO % 6 % (0-9); NEUT # 9.5 x10^3/uL (1.8-7.7); NEUT % 88 % (31-73); PLATELET COUNT 172 x10^3/uL (140-400); RED CELL DISTRIBUTION WIDTH 13.6 % (11.5-14.5); WHITE BLOOD COUNT 10.8 x10^3/uL (4.0-11.0)
[2021-08-20 05:28] LABS: ALBUMIN 2.2 g/dL (3.4-5.0); ALBUMIN/GLOBULIN RATIO 0.7 (1.0-1.7); CALCIUM 7.8 mg/dL (8.5-10.1); CREATININE 0.9 mg/dL (0.6-1.0); GFR 60.4; POTASSIUM 3.8 mmol/L (3.5-5.1); TOTAL BILIRUBIN 0.3 mg/dL (0.2-1.0); TOTAL PROTEIN 5.5 g/dL (6.4-8.2)
[2021-08-20] MEDS: PIPERACILLIN/TAZOBACTAM 3.375 GM in IV NORMAL SALINE 50ML 50 ML IV SCH (05:50)
[2021-08-20 07:00] VITALS: BP 158/68
--- NOTE | 2021-08-20 09:04 | PDOC ---
IM PROGRESS NOTES- Subjective Subjective Diarrhea is somewhat better but she still has multiple loose stools. She wants more oxycodone because of the pain. Patient is much more alert and responsive today. Objective Vitals/I&O Vital Signs Date Time Temp Pulse Resp B/P (MAP) Pulse Ox O2 Delivery O2 Flow Rate FiO2 08/20/21 01:57 98.2 96 14 174/75 (108) 96 Room Air 98.2 I & O0 08/19/21 08/19/21 08/20/21 15:00 23:00 07:00 Intake Total 700 ml 1728 ml 1538 ml Output Total 2100 ml 725 ml 1400 ml Balance -1400 ml 1003 ml 138 ml Physical Exam Physical Exam General Appearance - alert and in no distress Chest - decreased breath sounds at bases Heart - S1 and S2 normal Abdomen - soft, non tender Neurological - alert and oriented Musculoskeletal - generalized weakness Extremities - no edema Labs Laboratory Tests Test 08/19/21 10:00 08/19/21 12:30 08/20/21 04:10 Stool Campylobacter PCR Negative (NEGATIVE) Stool E. coli Shiga Toxins (PCR) Negative (NEGATIVE) Stool Salmonella PCR Positive (NEGATIVE) A Stool Shigella PCR Negative (NEGATIVE) Potassium Level 3.9 mmol/L (3.5-5.1) 3.8 mmol/L (3.5-5.1) White Blood Count 10.8 x10^3/uL (4.0-11.0) Red Blood Count 4.00 x10^6/uL (3.50-5.40) Hemoglobin 12.3 g/dL (12.0-15.5) Hematocrit 36.9 % (36.0-47.0) Mean Corpuscular Volume 92 fL (79-100) Mean Corpuscular Hemoglobin 31 pg (25-35) Mean Corpuscular Hemoglobin Concent 33 g/dL (31-37) Red Cell Distribution Width 13.6 % (11.5-14.5) Platelet Count 172 x10^3/uL (140-400) Neutrophils (%) (Auto) 88 % (31-73) H Lymphocytes (%) (Auto) 6 % (24-48) L Monocytes (%) (Auto) 6 % (0-9) Eosinophils (%) (Auto) 0 % (0-3) Basophils (%) (Auto) 0 % (0-3) Neutrophils # (Auto) 9.5 x10^3/uL (1.8-7.7) H Lymphocytes # (Auto) 0.6 x10^3/uL (1.0-4.8) L Monocytes # (Auto) 0.7 x10^3/uL (0.0-1.1) Eosinophils # (Auto) 0.0 x10^3/uL (0.0-0.7) Basophils # (Auto) 0.0 x10^3/uL (0.0-0.2) Sodium Level 141 mmol/L (136-145) Chloride Level 114 mmol/L (98-107) H Carbon Dioxide Level 15 mmol/L (21-32) L Anion Gap 12 (6-14) Blood Urea Nitrogen 12 mg/dL (7-20) Creatinine 0.9 mg/dL (0.6-1.0) Estimated GFR (Cockcroft-Gault) 60.4 BUN/Creatinine Ratio 13 (6-20) Glucose Level 102 mg/dL (70-99) H Calcium Level 7.8 mg/dL (8.5-10.1) L Total Bilirubin 0.3 mg/dL (0.2-1.0) Aspartate Amino Transferase (AST) 50 U/L (15-37) H Alanine Aminotransferase (ALT) 38 U/L (14-59) Alkaline Phosphatase 69 U/L (46-116) Total Protein 5.5 g/dL (6.4-8.2) L Albumin 2.2 g/dL (3.4-5.0) L Albumin/Globulin Ratio 0.7 (1.0-1.7) L Laboratory Tests 08/20/21 04:10 Laboratory Tests 08/19/21 12:30 08/20/21 04:10 Meds Current Medications Medications (Trade) Dose Ordered Sig/Alexia Route PRN Reason Start Time Stop Time Status Last Admin Dose Admin Vancomycin HCl 1 gm/Sodium Chloride 250 ml @ 250 mls/hr Q24H IV 08/19/21 14:00 08/19/21 14:17 Piperacillin Sod/ Tazobactam Sod 3.375 gm/Sodium Chloride 50 ml @ 100 mls/hr Q6HRS IV 08/19/21 12:00 08/20/21 05:50 Alprazolam (Xanax) 0.5 mg PRN QHS PRN PO ANXIETY / AGITATION / INSOMNIA 08/19/21 20:45 08/19/21 21:02 Assessment Assessment For sepsis, order blood cultures, UA and chest x-ray are negative. Follow up cultures. The patient was given IV Rocephin in the emergency room. I will give her IV Zosyn and vancomycin. Currently this week, Infectious Disease specialist are not available at [facility]. Blood cultures are negative so far. Recheck labs in a.m. Monitor temperature pattern. Procalcitonin level is high. Lactic acid level has decreased to 1. Leukocytosis is better. Patient has Salmonella gastroenteritis. Discontinue Zosyn and vancomycin and switch to IV Rocephin. Type II non-ST elevation NM. BNP is elevated. Clinically she has been dry on initial examination. Consult Dr. Lund for elevated troponin level. Hypokalemia- Replace potassium. Use hypokalemia protocol protocol. Give IV fluids. Recheck labs in a.m. Admit to intensive care unit. Acute metabolic encephalopathy much better. Acute gastroenteritis.-I do not believe that she had any antibiotics recently. Consult Dr. Bush for GI evaluation and management. May need Cipro if acute gastroenteritis is the cause of her sepsis. Stool studies. Diarrhea may also be partly due to withdrawal from her higher dose of pain medications. She has been eating chestnuts and she is allergic to peanuts. She has Salmonella gastroenteritis. Change IV Zosyn and vancomycin to Rocephin. Fecal testing shows reduced normal ricardo. Yeast present. Discussed with the patient and other sister about Salmonella infection and [facility] but other sisters have not been ill. I will resume some of her medications, but some of them I am going to hold, especially the long-acting oxycodone because of her acute mental status changes and acute metabolic encephalopathy. For details, please refer to the orders. Prognosis of this patient is poor due to her multiple medical problems. Plan Plan For more details regarding further plans, please refer to the orders. Justifications for Admission Other Justification Nutrition Consultation Dietary Evaluation: Recommendations by RD: Dietary education by RD, Increase Calorie Intake, Protein supplementation Comments: diet per GI, gluten free Expected Outcomes/Goals: to meet >75% est nutr needs Malnutrition Findings: Food and Nutrition Intake (Sev: <50% est energy req 5days Weight Status: Appropriate TIMO JOHNSON MD Aug 20, 2021 09:04
[2021-08-20] MEDS: MULTIVITAMIN with MINERAL TABLET. PO SCH (09:38)
[2021-08-20] MEDS: predniSONE 20 MG TABLET PO SCH (09:38)
[2021-08-20] MEDS: LACTOBACILLUS RHAMNOSUS GG 1 CAPSULE. PO SCH ×2 (09:38→21:33)
[2021-08-20] MEDS: PANTOPRAZOLE 40 MG TABLET.DR. PO SCH (09:38)
[2021-08-20] MEDS: METOPROLOL SUCC 24HR ER 50 MG TAB.ER.24H. PO SCH (09:39)
[2021-08-20] MEDS: DULoxetine HCL 30 MG CAPSULE.DR PO SCH (09:39)
[2021-08-20] MEDS: cycloSPORINE 0.05% OPHTH DROPERETTE. OU SCH ×2 (09:40→21:32)
[2021-08-20] MEDS: HEPARIN for SUB-Q USE 5,000 UNIT/ML VIAL. SQ SCH ×2 (09:40→21:34)
[2021-08-20] MEDS: oxyCODONE ER 10 MG TAB.ER.12H PO SCH ×2 (09:43→21:33)
[2021-08-20] MEDS ORDERED: cefTRIAXone IV Push 1 GM VIAL. IVP SCH (10:00)
[2021-08-20 10:11] VITALS: BP 174/78
--- NOTE | 2021-08-20 10:32 | PDOC ---
Date of Service: DATE: 08/20/21 TIME: 10:27 Subjective: Subjective: Diarrhea still "bad." Objective: Objective: D/w nurse - diarrhea slowing - this morning very small amount of watery stool. Vital Signs: Vital Signs Date Time Temp Pulse Resp B/P (MAP) Pulse Ox O2 Delivery O2 Flow Rate FiO2 08/20/21 10:11 101 18 174/78 (110) 96 Room Air 08/20/21 07:00 98.4 98.4 Labs: Laboratory Tests Test 08/19/21 12:30 08/20/21 04:10 Potassium Level 3.9 mmol/L 3.8 mmol/L White Blood Count 10.8 x10^3/uL Red Blood Count 4.00 x10^6/uL Hemoglobin 12.3 g/dL Hematocrit 36.9 % Mean Corpuscular Volume 92 fL Mean Corpuscular Hemoglobin 31 pg Mean Corpuscular Hemoglobin Concent 33 g/dL Red Cell Distribution Width 13.6 % Platelet Count 172 x10^3/uL Neutrophils (%) (Auto) 88 % Lymphocytes (%) (Auto) 6 % Monocytes (%) (Auto) 6 % Eosinophils (%) (Auto) 0 % Basophils (%) (Auto) 0 % Neutrophils # (Auto) 9.5 x10^3/uL Lymphocytes # (Auto) 0.6 x10^3/uL Monocytes # (Auto) 0.7 x10^3/uL Eosinophils # (Auto) 0.0 x10^3/uL Basophils # (Auto) 0.0 x10^3/uL Sodium Level 141 mmol/L Chloride Level 114 mmol/L Carbon Dioxide Level 15 mmol/L Anion Gap 12 Blood Urea Nitrogen 12 mg/dL Creatinine 0.9 mg/dL Estimated GFR (Cockcroft-Gault) 60.4 BUN/Creatinine Ratio 13 Glucose Level 102 mg/dL Calcium Level 7.8 mg/dL Total Bilirubin 0.3 mg/dL Aspartate Amino Transf (AST/SGOT) 50 U/L Alanine Aminotransferase (ALT/SGPT) 38 U/L Alkaline Phosphatase 69 U/L Total Protein 5.5 g/dL Albumin 2.2 g/dL Albumin/Globulin Ratio 0.7 FECAL WBC,GRAM STAIN Final WBCS MANY COMMENTS DIMINISHED NORMAL RAFAELA, YEAST PRESENT PE: GEN: NAD - sitting up in bed w/ breakfast tray, alone in room when I saw LUNGS: CTAB HEART: mildly tachycardic ABD: soft, non-specific mild discomfort NEURO/PSYCH: A & O 3, speaks some Swedish A/P: +Salmonella -- Diarrhea slowing per nursing. Atbx changed from Zosyn and vanco to Rocephin per primary. Continue support GI-franco. No anti-diarrheals. Justicifation of Admission Dx: Justifications for Admission: Justification of Admission Dx: Yes KENDALL GAY Aug 20, 2021 10:32
--- NOTE | 2021-08-20 11:30 | PDOC ---
YOKO POP [employer] 08/20/21 1130: CARDIO Progress Notes Date and Time Date of Service 08/20/21 Time of Evaluation 1120 Subjective Subjective: No Chest Pain, No shortness of breath, No Palpitations, Other (feeling better today ) Vitals Vitals Vital Signs Date Time Temp Pulse Resp B/P (MAP) Pulse Ox O2 Delivery O2 Flow Rate FiO2 08/20/21 10:11 101 18 174/78 (110) 96 Room Air 08/20/21 07:00 98.4 98.4 Weight Weight [ ] Input and Output Intake and Output Intake and Output 08/20/21 07:00 Intake Total 3966 ml Output Total 4225 ml Balance -259 ml Intake Oral 1225 ml IV Total 2741 ml Output Urine Total 2375 ml Stool Total 1850 ml # Bowel Movements 3 Laboratory Labs Laboratory Tests Test 08/19/21 12:30 08/20/21 04:10 Potassium Level 3.9 mmol/L (3.5-5.1) 3.8 mmol/L (3.5-5.1) White Blood Count 10.8 x10^3/uL (4.0-11.0) Red Blood Count 4.00 x10^6/uL (3.50-5.40) Hemoglobin 12.3 g/dL (12.0-15.5) Hematocrit 36.9 % (36.0-47.0) Mean Corpuscular Volume 92 fL (79-100) Mean Corpuscular Hemoglobin 31 pg (25-35) Mean Corpuscular Hemoglobin Concent 33 g/dL (31-37) Red Cell Distribution Width 13.6 % (11.5-14.5) Platelet Count 172 x10^3/uL (140-400) Neutrophils (%) (Auto) 88 % (31-73) Lymphocytes (%) (Auto) 6 % (24-48) Monocytes (%) (Auto) 6 % (0-9) Eosinophils (%) (Auto) 0 % (0-3) Basophils (%) (Auto) 0 % (0-3) Neutrophils # (Auto) 9.5 x10^3/uL (1.8-7.7) Lymphocytes # (Auto) 0.6 x10^3/uL (1.0-4.8) Monocytes # (Auto) 0.7 x10^3/uL (0.0-1.1) Eosinophils # (Auto) 0.0 x10^3/uL (0.0-0.7) Basophils # (Auto) 0.0 x10^3/uL (0.0-0.2) Sodium Level 141 mmol/L (136-145) Chloride Level 114 mmol/L (98-107) Carbon Dioxide Level 15 mmol/L (21-32) Anion Gap 12 (6-14) Blood Urea Nitrogen 12 mg/dL (7-20) Creatinine 0.9 mg/dL (0.6-1.0) Estimated GFR (Cockcroft-Gault) 60.4 BUN/Creatinine Ratio 13 (6-20) Glucose Level 102 mg/dL (70-99) Calcium Level 7.8 mg/dL (8.5-10.1) Total Bilirubin 0.3 mg/dL (0.2-1.0) Aspartate Amino Transf (AST/SGOT) 50 U/L (15-37) Alanine Aminotransferase (ALT/SGPT) 38 U/L (14-59) Alkaline Phosphatase 69 U/L (46-116) Total Protein 5.5 g/dL (6.4-8.2) Albumin 2.2 g/dL (3.4-5.0) Albumin/Globulin Ratio 0.7 (1.0-1.7) Microbiology Micro Microbiology 08/19/21 Fecal Leukocyte Stain - Final, Complete 08/18/21 Blood Culture - Preliminary, Resulted NO GROWTH AFTER 1 DAY Physical Exam Chest: Symmetric LUNGS: Other (diminished base) Heart: RRR (SR) Abdomen: Soft N/T Extremities: No Edema Neurology: alert, oriented, follow commands Assessment Assessment 1. Leukocytosis, lactic acidosis, fevers, sepsis. BC negative so far. C-diff negative. Stool Salmonella + 2. Mild troponin elevation; highest 0.074. Most probably type II, demand ischemia in setting of above. Cp free 3. Hypertension; controlled overall 4. Metabolic encephalopathy; improved 5. Hypokalemia; replaced 6. PUI; COVID negative Recommendations Supportive care from a CV standpoint No further inpatient cardiac testing at this time Could consider outpatient echo Justicifation of Admission Dx: Justifications for Admission: Justification of Admission Dx: Yes RACHEL STONE MD 08/20/21 1520: CARDIO Progress Notes Plan Plan The patient was seen and interviewed as well as examined at the bedside. The chart was reviewed. The case was discussed. Agree with the plan of care. YOKO POP APRN Aug 20, 2021 11:30 RACHEL STONE MD Aug 20, 2021 15:20
--- NOTE | 2021-08-20 11:32 | NUR ---
Dr Peterson called to report increased heart rate and lower BP from baseline, orders to draw hemogram Q4H and monitor blood pressure closely. Addendum: 08/21/21 at 1933 by IVÁN PERALTA RN wrong patient
[2021-08-20] MEDS: POTASSIUM CHLORIDE 20 MEQ TABLET.ER. PO SCH (12:36)
[2021-08-20] MEDS: cefTRIAXone IV Push 2 GM VIAL. IVP SCH (12:37)
[2021-08-20 15:00] VITALS: BP 144/54
--- NOTE | 2021-08-20 15:56 | NUR ---
SS following up with discharge planning. SS reviewed pt chart and discussed with pt RN. Pt is currently on room air. Pt on IV Rocephin. Pt positive for Salmonella. COVID19 negative. Discharge plan is to return to [facility] when medically ready for discharge. SS will continue to follow for discharge planning.
[2021-08-20 19:00] VITALS: BP 159/74
[2021-08-20] MEDS: GABAPENTIN 400 MG CAPSULE. PO SCH (21:32)
[2021-08-20 23:15] VITALS: BP 178/76
[2021-08-21 03:00] VITALS: BP 143/55
[2021-08-21 04:20] LABS: BASO % 0 % (0-3); EOS % 0 % (0-3); HEMATOCRIT 35.1 % (36.0-47.0); HEMOGLOBIN 11.9 g/dL (12.0-15.5); LYMPH # 1.1 x10^3/uL (1.0-4.8); LYMPH % 12 % (24-48); MEAN CORPUSCULAR HEMOGLOBIN 31 pg (25-35); MEAN CORPUSCULAR HGB CONC 34 g/dL (31-37); MEAN CORPUSCULAR VOLUME 91 fL (79-100); MONO # 0.7 x10^3/uL (0.0-1.1); MONO % 8 % (0-9); NEUT # 7.4 x10^3/uL (1.8-7.7); NEUT % 80 % (31-73); PLATELET COUNT 175 x10^3/uL (140-400); RED BLOOD COUNT 3.86 x10^6/uL (3.50-5.40); RED CELL DISTRIBUTION WIDTH 13.5 % (11.5-14.5); WHITE BLOOD COUNT 9.2 x10^3/uL (4.0-11.0)
[2021-08-21 04:50] LABS: ALBUMIN 2.3 g/dL (3.4-5.0); ALBUMIN/GLOBULIN RATIO 0.7 (1.0-1.7); CREATININE 0.7 mg/dL (0.6-1.0); GFR 80.7; POTASSIUM 3.4 mmol/L (3.5-5.1); TOTAL BILIRUBIN 0.2 mg/dL (0.2-1.0); TOTAL PROTEIN 5.7 g/dL (6.4-8.2)
[2021-08-21 07:00] VITALS: BP 183/76
--- NOTE | 2021-08-21 08:27 | PDOC ---
IM PROGRESS NOTES- Subjective Subjective She had 5 loose bowel movements last night. No complaints of nausea or vomiting. Objective Vitals/I&O Vital Signs Date Time Temp Pulse Resp B/P (MAP) Pulse Ox O2 Delivery O2 Flow Rate FiO2 08/21/21 07:00 98.1 77 16 183/76 (111) 97 Room Air 98.1 I & O 08/20/21 08/20/21 08/21/21 15:00 23:00 07:00 Intake Total 710 ml Output Total 1500 ml 300 ml 1950 ml Balance -790 ml -300 ml -1950 ml Physical Exam Physical Exam General Appearance - alert and in no distress Chest - decreased breath sounds at bases Heart - S1 and S2 normal Abdomen - soft, non tender Neurological - alert and oriented Musculoskeletal - generalized weakness Extremities - no edema Labs Laboratory Tests Test 08/21/21 03:55 White Blood Count 9.2 x10^3/uL (4.0-11.0) Red Blood Count 3.86 x10^6/uL (3.50-5.40) Hemoglobin 11.9 g/dL (12.0-15.5) L Hematocrit 35.1 % (36.0-47.0) L Mean Corpuscular Volume 91 fL (79-100) Mean Corpuscular Hemoglobin 31 pg (25-35) Mean Corpuscular Hemoglobin Concent 34 g/dL (31-37) Red Cell Distribution Width 13.5 % (11.5-14.5) Platelet Count 175 x10^3/uL (140-400) Neutrophils (%) (Auto) 80 % (31-73) H Lymphocytes (%) (Auto) 12 % (24-48) L Monocytes (%) (Auto) 8 % (0-9) Eosinophils (%) (Auto) 0 % (0-3) Basophils (%) (Auto) 0 % (0-3) Neutrophils # (Auto) 7.4 x10^3/uL (1.8-7.7) Lymphocytes # (Auto) 1.1 x10^3/uL (1.0-4.8) Monocytes # (Auto) 0.7 x10^3/uL (0.0-1.1) Eosinophils # (Auto) 0.0 x10^3/uL (0.0-0.7) Basophils # (Auto) 0.0 x10^3/uL (0.0-0.2) Sodium Level 142 mmol/L (136-145) Potassium Level 3.4 mmol/L (3.5-5.1) L Chloride Level 110 mmol/L (98-107) H Carbon Dioxide Level 20 mmol/L (21-32) L Anion Gap 12 (6-14) Blood Urea Nitrogen 9 mg/dL (7-20) Creatinine 0.7 mg/dL (0.6-1.0) Estimated GFR (Cockcroft-Gault) 80.7 BUN/Creatinine Ratio 13 (6-20) Glucose Level 92 mg/dL (70-99) Calcium Level 8.0 mg/dL (8.5-10.1) L Total Bilirubin 0.2 mg/dL (0.2-1.0) Aspartate Amino Transferase (AST) 48 U/L (15-37) H Alanine Aminotransferase (ALT) 47 U/L (14-59) Alkaline Phosphatase 64 U/L (46-116) Total Protein 5.7 g/dL (6.4-8.2) L Albumin 2.3 g/dL (3.4-5.0) L Albumin/Globulin Ratio 0.7 (1.0-1.7) L Laboratory Tests 08/21/21 03:55 Laboratory Tests 08/21/21 03:55 Meds Current Medications Medications (Trade) Dose Ordered Sig/Alexia Route PRN Reason Start Time Stop Time Status Last Admin Dose Admin Prednisone (Prednisone) 20 mg DAILY PO 08/20/21 09:00 08/20/21 09:38 Oxycodone HCl (OxyCONTIN) 20 mg Q12HR PO 08/20/21 09:30 08/20/21 21:33 Ceftriaxone Sodium (Rocephin) 2 gm Q24H IVP 08/20/21 12:00 08/20/21 12:37 Assessment Assessment For sepsis, order blood cultures, UA and chest x-ray are negative. Follow up cultures. The patient was given IV Rocephin in the emergency room. I will give her IV Zosyn and vancomycin. Currently this week, Infectious Disease specialist are not available at [facility]. Blood cultures are negative so far. Recheck labs in a.m. Monitor temperature pattern. Procalcitonin level is high. Lactic acid level has decreased to 1. Leukocytosis is better. Patient has Salmonella gastroenteritis. Discontinue Zosyn and vancomycin and switch to IV Rocephin. Type II non-ST elevation TN. BNP is elevated. Clinically she has been dry on initial examination. Consult Dr. Lund for elevated troponin level. Hypokalemia- Replace potassium. Use hypokalemia protocol. Increase potassium chloride to 20 mg 3 times a day with food protocol. Give IV fluids. Recheck labs in a.m. Admit to intensive care unit. Acute metabolic encephalopathy much better. Acute gastroenteritis.-I do not believe that she had any antibiotics recently. Consult Dr. Bush for GI evaluation and management. May need Cipro if acute gastroenteritis is the cause of her sepsis. Stool studies. Diarrhea may also be partly due to withdrawal from her higher dose of pain medications. She has been eating chestnuts and she is allergic to peanuts. She has Salmonella gastroenteritis. Change IV Zosyn and vancomycin to Rocephin. Fecal testing shows reduced normal ricardo. Yeast present. Discussed with the patient and other sister about Salmonella infection and [facility] but other [facility] have not been ill. Continue IV fluids. I will resume some of her medications, but some of them I am going to hold, especially the long-acting oxycodone because of her acute mental status changes and acute metabolic encephalopathy. For details, please refer to the orders. Prognosis of this patient is poor due to her multiple medical problems. Plan Plan For more details regarding further plans, please refer to the orders. Justifications for Admission Other Justification Nutrition Consultation Dietary Evaluation: Recommendations by RD: Dietary education by RD, Increase Calorie Intake, Protein supplementation Comments: diet per GI, gluten free Expected Outcomes/Goals: to meet >75% est nutr needs Malnutrition Findings: Food and Nutrition Intake (Sev: <50% est energy req 5days Weight Status: Appropriate TMIO JOHNSON MD Aug 21, 2021 08:27
[2021-08-21] MEDS: POTASSIUM CHLORIDE 20 MEQ TABLET.ER. PO SCH ×3 (09:24→18:00)
[2021-08-21] MEDS: LACTOBACILLUS RHAMNOSUS GG 1 CAPSULE. PO SCH ×2 (09:24→21:16)
[2021-08-21] MEDS: predniSONE 20 MG TABLET PO SCH (09:24)
[2021-08-21] MEDS: PANTOPRAZOLE 40 MG TABLET.DR. PO SCH (09:24)
[2021-08-21] MEDS: oxyCODONE ER 10 MG TAB.ER.12H PO SCH ×2 (09:25→21:17)
[2021-08-21] MEDS: MULTIVITAMIN with MINERAL TABLET. PO SCH (09:25)
[2021-08-21] MEDS: DULoxetine HCL 30 MG CAPSULE.DR PO SCH (09:25)
[2021-08-21] MEDS: METOPROLOL SUCC 24HR ER 50 MG TAB.ER.24H. PO SCH (09:25)
[2021-08-21] MEDS: cycloSPORINE 0.05% OPHTH DROPERETTE. OU SCH ×2 (09:26→21:16)
[2021-08-21] MEDS: HEPARIN for SUB-Q USE 5,000 UNIT/ML VIAL. SQ SCH ×2 (09:26→21:17)
--- NOTE | 2021-08-21 10:34 | PDOC ---
Date of Service: DATE: 08/21/21 TIME: 10:32 Subjective: Subjective: Whole body hurts. Diarrhea better overall but did have several stools overnight. Tired of being in bed. Objective: Vital Signs: Vital Signs Date Time Temp Pulse Resp B/P (MAP) Pulse Ox O2 Delivery O2 Flow Rate FiO2 08/21/21 09:25 97 Room Air 08/21/21 09:25 77 183/76 08/21/21 07:00 98.1 16 98.1 Labs: Laboratory Tests Test 08/21/21 03:55 White Blood Count 9.2 x10^3/uL Red Blood Count 3.86 x10^6/uL Hemoglobin 11.9 g/dL Hematocrit 35.1 % Mean Corpuscular Volume 91 fL Mean Corpuscular Hemoglobin 31 pg Mean Corpuscular Hemoglobin Concent 34 g/dL Red Cell Distribution Width 13.5 % Platelet Count 175 x10^3/uL Neutrophils (%) (Auto) 80 % Lymphocytes (%) (Auto) 12 % Monocytes (%) (Auto) 8 % Eosinophils (%) (Auto) 0 % Basophils (%) (Auto) 0 % Neutrophils # (Auto) 7.4 x10^3/uL Lymphocytes # (Auto) 1.1 x10^3/uL Monocytes # (Auto) 0.7 x10^3/uL Eosinophils # (Auto) 0.0 x10^3/uL Basophils # (Auto) 0.0 x10^3/uL Sodium Level 142 mmol/L Potassium Level 3.4 mmol/L Chloride Level 110 mmol/L Carbon Dioxide Level 20 mmol/L Anion Gap 12 Blood Urea Nitrogen 9 mg/dL Creatinine 0.7 mg/dL Estimated GFR (Cockcroft-Gault) 80.7 BUN/Creatinine Ratio 13 Glucose Level 92 mg/dL Calcium Level 8.0 mg/dL Total Bilirubin 0.2 mg/dL Aspartate Amino Transf (AST/SGOT) 48 U/L Alanine Aminotransferase (ALT/SGPT) 47 U/L Alkaline Phosphatase 64 U/L Total Protein 5.7 g/dL Albumin 2.3 g/dL Albumin/Globulin Ratio 0.7 PE: GEN: NAD, eating breakfast LUNGS: CTAB HEART: RRR ABD: S/ND/NT NEURO/PSYCH: A & O 3 A/P: +Salmonella -- Continue support GI-franco. Would remain in isolation. Justicifation of Admission Dx: Justifications for Admission: Justification of Admission Dx: Yes KENDALL GAY Aug 21, 2021 10:34
[2021-08-21 11:00] VITALS: BP 145/76
[2021-08-21] MEDS: cefTRIAXone IV Push 2 GM VIAL. IVP SCH (14:57)
[2021-08-21 19:00] VITALS: BP 176/75
[2021-08-21] MEDS: GABAPENTIN 400 MG CAPSULE. PO SCH (21:16)
[2021-08-21 23:00] VITALS: BP 170/64
[2021-08-22 03:00] VITALS: BP 189/76
[2021-08-22 05:01] LABS: BASO % 0 % (0-3); EOS % 0 % (0-3); HEMATOCRIT 41.1 % (36.0-47.0); HEMOGLOBIN 13.8 g/dL (12.0-15.5); LYMPH # 1.6 x10^3/uL (1.0-4.8); LYMPH % 19 % (24-48); MEAN CORPUSCULAR HEMOGLOBIN 31 pg (25-35); MEAN CORPUSCULAR HGB CONC 34 g/dL (31-37); MEAN CORPUSCULAR VOLUME 91 fL (79-100); MONO # 0.8 x10^3/uL (0.0-1.1); MONO % 9 % (0-9); NEUT # 6.3 x10^3/uL (1.8-7.7); NEUT % 72 % (31-73); PLATELET COUNT 226 x10^3/uL (140-400); RED BLOOD COUNT 4.51 x10^6/uL (3.50-5.40); RED CELL DISTRIBUTION WIDTH 13.6 % (11.5-14.5); WHITE BLOOD COUNT 8.7 x10^3/uL (4.0-11.0)
[2021-08-22 05:23] LABS: CALCIUM 8.5 mg/dL (8.5-10.1); CREATININE 0.8 mg/dL (0.6-1.0); GFR 69.2; POTASSIUM 3.5 mmol/L (3.5-5.1)
[2021-08-22 07:00] VITALS: BP 165/71
--- NOTE | 2021-08-22 08:57 | NUR ---
SS following up with discharge planning. SS reviewed pt chart and discussed with pt RN. Pt is currently on room air. COVID19 negative. BPCI. 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 SS met with sisters in room and provided explanation of BPCI. SS was notified that [facility] would be [facility] to [facility] with [facility]. Packet updated and placed on chart. Possible discharge today. Sisters reported that they would provide transportation.
[2021-08-22] MEDS: cycloSPORINE 0.05% OPHTH DROPERETTE. OU SCH ×2 (09:49→20:06)
[2021-08-22] MEDS: METOPROLOL SUCC 24HR ER 50 MG TAB.ER.24H. PO SCH (09:50)
[2021-08-22] MEDS: DULoxetine HCL 30 MG CAPSULE.DR PO SCH (09:50)
[2021-08-22] MEDS: MULTIVITAMIN with MINERAL TABLET. PO SCH (09:50)
[2021-08-22] MEDS: predniSONE 20 MG TABLET PO SCH (09:50)
[2021-08-22] MEDS: LACTOBACILLUS RHAMNOSUS GG 1 CAPSULE. PO SCH ×2 (09:50→20:05)
[2021-08-22] MEDS: PANTOPRAZOLE 40 MG TABLET.DR. PO SCH (09:51)
[2021-08-22] MEDS: POTASSIUM CHLORIDE 20 MEQ TABLET.ER. PO SCH ×3 (09:51→18:10)
[2021-08-22] MEDS: oxyCODONE ER 10 MG TAB.ER.12H PO SCH ×2 (09:52→20:05)
[2021-08-22] MEDS: HEPARIN for SUB-Q USE 5,000 UNIT/ML VIAL. SQ SCH ×2 (09:53→20:33)
--- NOTE | 2021-08-22 10:08 | PDOC ---
IM PROGRESS NOTES- Subjective Subjective Still has diarrhea. No complaints of nausea or vomiting. Objective Vitals/I&O Vital Signs Date Time Temp Pulse Resp B/P (MAP) Pulse Ox O2 Delivery O2 Flow Rate FiO2 08/22/21 09:52 16 98 Room Air 08/22/21 09:52 81 165/71 08/22/21 03:00 98.1 98.1 I & O 08/21/21 08/21/21 08/22/21 15:00 23:00 07:00 Intake Total 480 ml 3872 ml Output Total 1500 ml 1650 ml Balance -1020 ml 2222 ml Physical Exam Physical Exam General Appearance - alert and in no distress Chest - decreased breath sounds at bases Heart - S1 and S2 normal Abdomen - soft, non tender Neurological - alert and oriented Musculoskeletal - generalized weakness Extremities - no edema Labs Laboratory Tests Test 08/22/21 04:30 White Blood Count 8.7 x10^3/uL (4.0-11.0) Red Blood Count 4.51 x10^6/uL (3.50-5.40) Hemoglobin 13.8 g/dL (12.0-15.5) Hematocrit 41.1 % (36.0-47.0) Mean Corpuscular Volume 91 fL (79-100) Mean Corpuscular Hemoglobin 31 pg (25-35) Mean Corpuscular Hemoglobin Concent 34 g/dL (31-37) Red Cell Distribution Width 13.6 % (11.5-14.5) Platelet Count 226 x10^3/uL (140-400) Neutrophils (%) (Auto) 72 % (31-73) Lymphocytes (%) (Auto) 19 % (24-48) L Monocytes (%) (Auto) 9 % (0-9) Eosinophils (%) (Auto) 0 % (0-3) Basophils (%) (Auto) 0 % (0-3) Neutrophils # (Auto) 6.3 x10^3/uL (1.8-7.7) Lymphocytes # (Auto) 1.6 x10^3/uL (1.0-4.8) Monocytes # (Auto) 0.8 x10^3/uL (0.0-1.1) Eosinophils # (Auto) 0.0 x10^3/uL (0.0-0.7) Basophils # (Auto) 0.0 x10^3/uL (0.0-0.2) Sodium Level 142 mmol/L (136-145) Potassium Level 3.5 mmol/L (3.5-5.1) Chloride Level 106 mmol/L (98-107) Carbon Dioxide Level 26 mmol/L (21-32) Anion Gap 10 (6-14) Blood Urea Nitrogen 8 mg/dL (7-20) Creatinine 0.8 mg/dL (0.6-1.0) Estimated GFR (Cockcroft-Gault) 69.2 Glucose Level 93 mg/dL (70-99) Calcium Level 8.5 mg/dL (8.5-10.1) Laboratory Tests 08/22/21 04:30 Laboratory Tests 08/22/21 04:30 Assessment Assessment For sepsis, order blood cultures, UA and chest x-ray are negative. Follow up cultures. The patient was given IV Rocephin in the emergency room. I will give her IV Zosyn and vancomycin. Currently this week, Infectious Disease specialist are not available at [facility]. Blood cultures are negative so far. Recheck labs in a.m. Monitor temperature pattern. Procalcitonin level is high. Lactic acid level has decreased to 1. Leukocytosis is better. Patient has Salmonella gastroenteritis. Discontinue Zosyn and vancomycin and switch to IV Rocephin. Type II non-ST elevation NM. BNP is elevated. Clinically she has been dry on initial examination. Consult Dr. Ludn for elevated troponin level. Hypokalemia- Replace potassium. Use hypokalemia protocol. Increase potassium chloride to 20 meq 3 times a day with food protocol. Give IV fluids. Recheck labs in a.m. Admit to intensive care unit. Acute metabolic encephalopathy much better. Acute gastroenteritis.-I do not believe that she had any antibiotics recently. Consult Dr. Bush for GI evaluation and management. Stool studies. Diarrhea may also be partly due to withdrawal from her higher dose of pain medications. She has been eating chestnuts and she is allergic to peanuts. She has Salmonella gastroenteritis. Change IV Zosyn and vancomycin to Rocephin. Fecal testing shows reduced normal ricardo. Yeast present. Discussed with the patient and other sister about Salmonella infection and [facility] but other [facility] have not been ill. Continue IV fluids. I will resume some of her medications, but some of them I am going to hold, especially the long-acting oxycodone because of her acute mental status changes and acute metabolic encephalopathy. For details, please refer to the orders. Prognosis of this patient is poor due to her multiple medical problems. Plan Plan For more details regarding further plans, please refer to the orders. Justifications for Admission Other Justification Nutrition Consultation Dietary Evaluation: Recommendations by RD: Dietary education by RD Comments: diet per GI, gluten free Expected Outcomes/Goals: to meet >75% est nutr needs- met, goal ongoing Malnutrition Findings: Food and Nutrition Intake (Sev: <50% est energy req 5days Weight Status: Appropriate TIMO JOHNSON MD Aug 22, 2021 10:08
[2021-08-22 11:00] VITALS: BP 189/91
[2021-08-22] MEDS: cefTRIAXone IV Push 2 GM VIAL. IVP SCH (11:40)
--- NOTE | 2021-08-22 14:17 | PDOC ---
G I PROGRESS NOTE Subjective In bathroom for extended bedbath. Did not see face to face. Objective Per staff, still diarrhea but otherwise OK. Physical Exam No PE. Review of Relevant I have reviewed the following items armida (where applicable) has been applied. Labs Laboratory Tests Test 08/21/21 03:55 08/22/21 04:30 White Blood Count 9.2 x10^3/uL (4.0-11.0) 8.7 x10^3/uL (4.0-11.0) Red Blood Count 3.86 x10^6/uL (3.50-5.40) 4.51 x10^6/uL (3.50-5.40) Hemoglobin 11.9 g/dL (12.0-15.5) 13.8 g/dL (12.0-15.5) Hematocrit 35.1 % (36.0-47.0) 41.1 % (36.0-47.0) Mean Corpuscular Volume 91 fL (79-100) 91 fL (79-100) Mean Corpuscular Hemoglobin 31 pg (25-35) 31 pg (25-35) Mean Corpuscular Hemoglobin Concent 34 g/dL (31-37) 34 g/dL (31-37) Red Cell Distribution Width 13.5 % (11.5-14.5) 13.6 % (11.5-14.5) Platelet Count 175 x10^3/uL (140-400) 226 x10^3/uL (140-400) Neutrophils (%) (Auto) 80 % (31-73) 72 % (31-73) Lymphocytes (%) (Auto) 12 % (24-48) 19 % (24-48) Monocytes (%) (Auto) 8 % (0-9) 9 % (0-9) Eosinophils (%) (Auto) 0 % (0-3) 0 % (0-3) Basophils (%) (Auto) 0 % (0-3) 0 % (0-3) Neutrophils # (Auto) 7.4 x10^3/uL (1.8-7.7) 6.3 x10^3/uL (1.8-7.7) Lymphocytes # (Auto) 1.1 x10^3/uL (1.0-4.8) 1.6 x10^3/uL (1.0-4.8) Monocytes # (Auto) 0.7 x10^3/uL (0.0-1.1) 0.8 x10^3/uL (0.0-1.1) Eosinophils # (Auto) 0.0 x10^3/uL (0.0-0.7) 0.0 x10^3/uL (0.0-0.7) Basophils # (Auto) 0.0 x10^3/uL (0.0-0.2) 0.0 x10^3/uL (0.0-0.2) Sodium Level 142 mmol/L (136-145) 142 mmol/L (136-145) Potassium Level 3.4 mmol/L (3.5-5.1) 3.5 mmol/L (3.5-5.1) Chloride Level 110 mmol/L (98-107) 106 mmol/L (98-107) Carbon Dioxide Level 20 mmol/L (21-32) 26 mmol/L (21-32) Anion Gap 12 (6-14) 10 (6-14) Blood Urea Nitrogen 9 mg/dL (7-20) 8 mg/dL (7-20) Creatinine 0.7 mg/dL (0.6-1.0) 0.8 mg/dL (0.6-1.0) Estimated GFR (Cockcroft-Gault) 80.7 69.2 BUN/Creatinine Ratio 13 (6-20) Glucose Level 92 mg/dL (70-99) 93 mg/dL (70-99) Calcium Level 8.0 mg/dL (8.5-10.1) 8.5 mg/dL (8.5-10.1) Total Bilirubin 0.2 mg/dL (0.2-1.0) Aspartate Amino Transf (AST/SGOT) 48 U/L (15-37) Alanine Aminotransferase (ALT/SGPT) 47 U/L (14-59) Alkaline Phosphatase 64 U/L (46-116) Total Protein 5.7 g/dL (6.4-8.2) Albumin 2.3 g/dL (3.4-5.0) Albumin/Globulin Ratio 0.7 (1.0-1.7) Laboratory Tests Test 08/22/21 04:30 White Blood Count 8.7 x10^3/uL (4.0-11.0) Red Blood Count 4.51 x10^6/uL (3.50-5.40) Hemoglobin 13.8 g/dL (12.0-15.5) Hematocrit 41.1 % (36.0-47.0) Mean Corpuscular Volume 91 fL (79-100) Mean Corpuscular Hemoglobin 31 pg (25-35) Mean Corpuscular Hemoglobin Concent 34 g/dL (31-37) Red Cell Distribution Width 13.6 % (11.5-14.5) Platelet Count 226 x10^3/uL (140-400) Neutrophils (%) (Auto) 72 % (31-73) Lymphocytes (%) (Auto) 19 % (24-48) Monocytes (%) (Auto) 9 % (0-9) Eosinophils (%) (Auto) 0 % (0-3) Basophils (%) (Auto) 0 % (0-3) Neutrophils # (Auto) 6.3 x10^3/uL (1.8-7.7) Lymphocytes # (Auto) 1.6 x10^3/uL (1.0-4.8) Monocytes # (Auto) 0.8 x10^3/uL (0.0-1.1) Eosinophils # (Auto) 0.0 x10^3/uL (0.0-0.7) Basophils # (Auto) 0.0 x10^3/uL (0.0-0.2) Sodium Level 142 mmol/L (136-145) Potassium Level 3.5 mmol/L (3.5-5.1) Chloride Level 106 mmol/L (98-107) Carbon Dioxide Level 26 mmol/L (21-32) Anion Gap 10 (6-14) Blood Urea Nitrogen 8 mg/dL (7-20) Creatinine 0.8 mg/dL (0.6-1.0) Estimated GFR (Cockcroft-Gault) 69.2 Glucose Level 93 mg/dL (70-99) Calcium Level 8.5 mg/dL (8.5-10.1) Microbiology 08/19/21 Fecal Leukocyte Stain - Final, Complete 08/18/21 Blood Culture - Preliminary, Resulted NO GROWTH AFTER 3 DAYS Vitals/I & O Vital Sign - Last 24 Hours 08/21/21 08/21/21 08/21/21 08/21/21 19:00 20:00 21:17 23:00 Temp 98.4 98.2 98.4 98.2 Pulse 80 81 Resp 18 16 16 B/P (MAP) 176/75 (108) 170/64 (99) Pulse Ox 97 97 97 O2 Delivery Room Air Room Air Room Air Room Air 08/22/21 08/22/21 08/22/21 08/22/21 01:17 03:00 07:00 08:00 Temp 98.1 98.4 98.1 98.4 Pulse 85 82 Resp 16 18 16 B/P (MAP) 189/76 (113) 165/71 (102) Pulse Ox 96 98 98 O2 Delivery Room Air Room Air Room Air Room Air 08/22/21 08/22/21 08/22/21 08/22/21 09:50 09:52 09:52 11:00 Temp 98.7 98.7 Pulse 81 81 89 Resp 16 16 B/P (MAP) 165/71 165/71 189/91 (123) Pulse Ox 98 97 O2 Delivery Room Air Room Air 08/22/21 11:40 Pulse 92 B/P (MAP) 189/91 Intake and Output 08/21/21 08/21/21 08/22/21 15:00 23:00 07:00 Intake Total 480 ml 3872 ml Output Total 1500 ml 1650 ml Balance -1020 ml 2222 ml Problem List Problems Medical Problems: (1) Altered mental status Status: Acute (2) Elevated troponin Status: Acute (3) Hypokalemia Status: Acute (4) Lactic acidosis Status: Acute (5) Severe sepsis Status: Acute (6) Suspected 2019 novel coronavirus infection Status: Acute Assessment Salmonella gastroenteritis, stable. Would not expect diarrhea to resolve quickly. May take some more days. Plan of Care Note Continue Rocephin, etc. Justicifation of Admission Dx: Justifications for Admission: Justification of Admission Dx: Yes SADAF FOSS MD Aug 22, 2021 14:17
[2021-08-22 15:00] VITALS: BP 162/85
[2021-08-22 19:00] VITALS: BP 158/86
[2021-08-22] MEDS: ATORVASTATIN CALCIUM 10 MG TABLET. PO SCH (20:04)
[2021-08-22] MEDS: GABAPENTIN 400 MG CAPSULE. PO SCH (20:06)
[2021-08-22 23:59] VITALS: BP 158/84
[2021-08-23 03:00] VITALS: BP 169/88
[2021-08-23 05:00] LABS: BASO % 0 % (0-3); EOS # 0.1 x10^3/uL (0.0-0.7); EOS % 1 % (0-3); HEMATOCRIT 37.6 % (36.0-47.0); HEMOGLOBIN 12.6 g/dL (12.0-15.5); LYMPH # 1.7 x10^3/uL (1.0-4.8); LYMPH % 21 % (24-48); MEAN CORPUSCULAR HEMOGLOBIN 31 pg (25-35); MEAN CORPUSCULAR HGB CONC 34 g/dL (31-37); MEAN CORPUSCULAR VOLUME 91 fL (79-100); MONO # 1.2 x10^3/uL (0.0-1.1); MONO % 14 % (0-9); NEUT # 5.3 x10^3/uL (1.8-7.7); NEUT % 64 % (31-73); PLATELET COUNT 214 x10^3/uL (140-400); RED BLOOD COUNT 4.15 x10^6/uL (3.50-5.40); RED CELL DISTRIBUTION WIDTH 13.4 % (11.5-14.5); WHITE BLOOD COUNT 8.3 x10^3/uL (4.0-11.0)
[2021-08-23 05:16] LABS: CALCIUM 8.4 mg/dL (8.5-10.1); CREATININE 0.7 mg/dL (0.6-1.0); GFR 80.7; POTASSIUM 3.5 mmol/L (3.5-5.1)
[2021-08-23 07:00] VITALS: BP 150/71
[2021-08-23] MEDS: oxyCODONE ER 10 MG TAB.ER.12H PO SCH ×2 (09:13→20:17)
[2021-08-23] MEDS: METOPROLOL SUCC 24HR ER 50 MG TAB.ER.24H. PO SCH (09:14)
[2021-08-23] MEDS: PANTOPRAZOLE 40 MG TABLET.DR. PO SCH (09:14)
[2021-08-23] MEDS: predniSONE 20 MG TABLET PO SCH (09:14)
[2021-08-23] MEDS: DULoxetine HCL 30 MG CAPSULE.DR PO SCH (09:14)
[2021-08-23] MEDS: cycloSPORINE 0.05% OPHTH DROPERETTE. OU SCH ×2 (09:15→20:17)
[2021-08-23] MEDS: LACTOBACILLUS RHAMNOSUS GG 1 CAPSULE. PO SCH ×2 (09:15→20:18)
[2021-08-23] MEDS: MULTIVITAMIN with MINERAL TABLET. PO SCH (09:15)
[2021-08-23] MEDS: HEPARIN for SUB-Q USE 5,000 UNIT/ML VIAL. SQ SCH ×2 (09:15→20:19)
[2021-08-23] MEDS: POTASSIUM CHLORIDE 20 MEQ TABLET.ER. PO SCH ×3 (09:15→19:05)
--- NOTE | 2021-08-23 09:33 | PDOC ---
IM PROGRESS NOTES- Subjective Subjective Still has diarrhea. No complaints of nausea or vomiting. She had 2 bowel movements this morning. Objective Vitals/I&O Vital Signs Date Time Temp Pulse Resp B/P (MAP) Pulse Ox O2 Delivery O2 Flow Rate FiO2 08/23/21 09:14 97 158/71 08/23/21 09:13 16 99 Room Air 08/23/21 03:00 98.0 98.0 I & O 08/22/21 08/22/21 08/23/21 15:00 23:00 07:00 Intake Total 960 ml 1897 ml 1150 ml Output Total 800 ml Balance 960 ml 1897 ml 350 ml Physical Exam Physical Exam General Appearance - alert and in no distress Chest - decreased breath sounds at bases Heart - S1 and S2 normal Abdomen - soft, non tender Neurological - alert and oriented Musculoskeletal - generalized weakness Extremities - no edema Labs Laboratory Tests Test 08/23/21 04:30 White Blood Count 8.3 x10^3/uL (4.0-11.0) Red Blood Count 4.15 x10^6/uL (3.50-5.40) Hemoglobin 12.6 g/dL (12.0-15.5) Hematocrit 37.6 % (36.0-47.0) Mean Corpuscular Volume 91 fL (79-100) Mean Corpuscular Hemoglobin 31 pg (25-35) Mean Corpuscular Hemoglobin Concent 34 g/dL (31-37) Red Cell Distribution Width 13.4 % (11.5-14.5) Platelet Count 214 x10^3/uL (140-400) Neutrophils (%) (Auto) 64 % (31-73) Lymphocytes (%) (Auto) 21 % (24-48) L Monocytes (%) (Auto) 14 % (0-9) H Eosinophils (%) (Auto) 1 % (0-3) Basophils (%) (Auto) 0 % (0-3) Neutrophils # (Auto) 5.3 x10^3/uL (1.8-7.7) Lymphocytes # (Auto) 1.7 x10^3/uL (1.0-4.8) Monocytes # (Auto) 1.2 x10^3/uL (0.0-1.1) H Eosinophils # (Auto) 0.1 x10^3/uL (0.0-0.7) Basophils # (Auto) 0.0 x10^3/uL (0.0-0.2) Sodium Level 140 mmol/L (136-145) Potassium Level 3.5 mmol/L (3.5-5.1) Chloride Level 105 mmol/L (98-107) Carbon Dioxide Level 27 mmol/L (21-32) Anion Gap 8 (6-14) Blood Urea Nitrogen 10 mg/dL (7-20) Creatinine 0.7 mg/dL (0.6-1.0) Estimated GFR (Cockcroft-Gault) 80.7 Glucose Level 94 mg/dL (70-99) Calcium Level 8.4 mg/dL (8.5-10.1) L Laboratory Tests 08/23/21 04:30 Laboratory Tests 08/23/21 04:30 Meds Current Medications Medications (Trade) Dose Ordered Sig/Alexia Route PRN Reason Start Time Stop Time Status Last Admin Dose Admin Atorvastatin Calcium (Lipitor) 10 mg QHS PO 08/22/21 21:00 08/22/21 20:04 Amlodipine Besylate (Norvasc) 5 mg 1X ONCE PO 08/22/21 10:45 08/22/21 10:46 DC 08/22/21 11:40 Amlodipine Besylate (Norvasc) 10 mg DAILY PO 08/23/21 09:00 08/23/21 09:14 Assessment Assessment For sepsis, order blood cultures, UA and chest x-ray are negative. Follow up cultures. The patient was given IV Rocephin in the emergency room. I will give her IV Zosyn and vancomycin. Currently this week, Infectious Disease specialist are not available at [facility]. Blood cultures are negative so far. Recheck labs in a.m. Monitor temperature pattern. Procalcitonin level is high. Lactic acid level has decreased to 1. Leukocytosis is better. Patient has Salmonella gastroenteritis. Discontinue Zosyn and vancomycin and switch to IV Rocephin. Type II non-ST elevation SC. BNP is elevated. Clinically she has been dry on initial examination. Consult Dr. Lund for elevated troponin level. Hypokalemia- Replace potassium. Use hypokalemia protocol. Increase potassium chloride to 20 meq 3 times a day with food protocol. Give IV fluids. Recheck labs in a.m. Admit to intensive care unit. Acute metabolic encephalopathy much better. Acute gastroenteritis.-I do not believe that she had any antibiotics recently. Consult Dr. Bush for GI evaluation and management. Stool studies. Diarrhea may also be partly due to withdrawal from her higher dose of pain medications. She has been eating chestnuts and she is allergic to peanuts. She has Salmonella gastroenteritis. Change IV Zosyn and vancomycin to Rocephin. Fecal testing shows reduced normal ricardo. Yeast present. Discussed with the patient and other sister about Salmonella infection and [facility] but other sisters have not been ill. Decrease IV fluids. I will resume some of her medications, but some of them I am going to hold, especially the long-acting oxycodone because of her acute mental status changes and acute metabolic encephalopathy. Clinically improving. If stable discharge back to nursery tomorrow. She will stay in her room for first few days as per sister. Because she is immunosuppressed, I will discharge her on Cipro 500 mg twice daily with food for 1 week. Plan Plan For more details regarding further plans, please refer to the orders. Justifications for Admission Other Justification Nutrition Consultation Dietary Evaluation: Recommendations by RD: Dietary education by RD Comments: diet per GI, gluten free Expected Outcomes/Goals: to meet >75% est nutr needs- met, goal ongoing Malnutrition Findings: Food and Nutrition Intake (Sev: <50% est energy req 5days Weight Status: Appropriate TIMO JOHNSON MD Aug 23, 2021 09:33
[2021-08-23] MEDS ORDERED: POTA20TA4 PO (10:18)
[2021-08-23] MEDS ORDERED: LACT1CAP19 PO (10:18)
[2021-08-23] MEDS ORDERED: CIPR500T94 PO (10:18)
--- NOTE | 2021-08-23 10:20 | DISCH ---
DISCHARGE INSTRUCTIONS Condition on Discharge Condition on Discharge: Stable Activity After Discharge Activity Instructions for Disc: Activity as tolerated Weight Bearing Status after Di: As tolerated Diet after Discharge Diet after Discharge: Regular Diet Texture: Regular Checks after Discharge Checks after discharge: Check blood press - daily DC Comment: Increase fluids. Contacting the [facility] after DC Call your doctor for: Concerns you may have Follow-Up Follow up with: Dr.Pratip Johnson in 5 days. TIMO JOHNSON MD Aug 23, 2021 10:20
[2021-08-23 11:00] VITALS: BP 116/59
[2021-08-23] MEDS: cefTRIAXone IV Push 2 GM VIAL. IVP SCH (13:54)
--- NOTE | 2021-08-23 13:54 | PDOC ---
G I PROGRESS NOTE Subjective Still with loose stools, but fewer. No N, V, pain. Physical Exam Lungs clear anteriorly. RRR Abdomen soft, not tender nor distended. Review of Relevant I have reviewed the following items armida (where applicable) has been applied. Labs Laboratory Tests Test 08/22/21 04:30 08/23/21 04:30 White Blood Count 8.7 x10^3/uL (4.0-11.0) 8.3 x10^3/uL (4.0-11.0) Red Blood Count 4.51 x10^6/uL (3.50-5.40) 4.15 x10^6/uL (3.50-5.40) Hemoglobin 13.8 g/dL (12.0-15.5) 12.6 g/dL (12.0-15.5) Hematocrit 41.1 % (36.0-47.0) 37.6 % (36.0-47.0) Mean Corpuscular Volume 91 fL (79-100) 91 fL (79-100) Mean Corpuscular Hemoglobin 31 pg (25-35) 31 pg (25-35) Mean Corpuscular Hemoglobin Concent 34 g/dL (31-37) 34 g/dL (31-37) Red Cell Distribution Width 13.6 % (11.5-14.5) 13.4 % (11.5-14.5) Platelet Count 226 x10^3/uL (140-400) 214 x10^3/uL (140-400) Neutrophils (%) (Auto) 72 % (31-73) 64 % (31-73) Lymphocytes (%) (Auto) 19 % (24-48) 21 % (24-48) Monocytes (%) (Auto) 9 % (0-9) 14 % (0-9) Eosinophils (%) (Auto) 0 % (0-3) 1 % (0-3) Basophils (%) (Auto) 0 % (0-3) 0 % (0-3) Neutrophils # (Auto) 6.3 x10^3/uL (1.8-7.7) 5.3 x10^3/uL (1.8-7.7) Lymphocytes # (Auto) 1.6 x10^3/uL (1.0-4.8) 1.7 x10^3/uL (1.0-4.8) Monocytes # (Auto) 0.8 x10^3/uL (0.0-1.1) 1.2 x10^3/uL (0.0-1.1) Eosinophils # (Auto) 0.0 x10^3/uL (0.0-0.7) 0.1 x10^3/uL (0.0-0.7) Basophils # (Auto) 0.0 x10^3/uL (0.0-0.2) 0.0 x10^3/uL (0.0-0.2) Sodium Level 142 mmol/L (136-145) 140 mmol/L (136-145) Potassium Level 3.5 mmol/L (3.5-5.1) 3.5 mmol/L (3.5-5.1) Chloride Level 106 mmol/L (98-107) 105 mmol/L (98-107) Carbon Dioxide Level 26 mmol/L (21-32) 27 mmol/L (21-32) Anion Gap 10 (6-14) 8 (6-14) Blood Urea Nitrogen 8 mg/dL (7-20) 10 mg/dL (7-20) Creatinine 0.8 mg/dL (0.6-1.0) 0.7 mg/dL (0.6-1.0) Estimated GFR (Cockcroft-Gault) 69.2 80.7 Glucose Level 93 mg/dL (70-99) 94 mg/dL (70-99) Calcium Level 8.5 mg/dL (8.5-10.1) 8.4 mg/dL (8.5-10.1) Laboratory Tests Test 08/23/21 04:30 White Blood Count 8.3 x10^3/uL (4.0-11.0) Red Blood Count 4.15 x10^6/uL (3.50-5.40) Hemoglobin 12.6 g/dL (12.0-15.5) Hematocrit 37.6 % (36.0-47.0) Mean Corpuscular Volume 91 fL (79-100) Mean Corpuscular Hemoglobin 31 pg (25-35) Mean Corpuscular Hemoglobin Concent 34 g/dL (31-37) Red Cell Distribution Width 13.4 % (11.5-14.5) Platelet Count 214 x10^3/uL (140-400) Neutrophils (%) (Auto) 64 % (31-73) Lymphocytes (%) (Auto) 21 % (24-48) Monocytes (%) (Auto) 14 % (0-9) Eosinophils (%) (Auto) 1 % (0-3) Basophils (%) (Auto) 0 % (0-3) Neutrophils # (Auto) 5.3 x10^3/uL (1.8-7.7) Lymphocytes # (Auto) 1.7 x10^3/uL (1.0-4.8) Monocytes # (Auto) 1.2 x10^3/uL (0.0-1.1) Eosinophils # (Auto) 0.1 x10^3/uL (0.0-0.7) Basophils # (Auto) 0.0 x10^3/uL (0.0-0.2) Sodium Level 140 mmol/L (136-145) Potassium Level 3.5 mmol/L (3.5-5.1) Chloride Level 105 mmol/L (98-107) Carbon Dioxide Level 27 mmol/L (21-32) Anion Gap 8 (6-14) Blood Urea Nitrogen 10 mg/dL (7-20) Creatinine 0.7 mg/dL (0.6-1.0) Estimated GFR (Cockcroft-Gault) 80.7 Glucose Level 94 mg/dL (70-99) Calcium Level 8.4 mg/dL (8.5-10.1) Microbiology 08/19/21 Fecal Leukocyte Stain - Final, Complete 08/18/21 Blood Culture - Preliminary, Resulted NO GROWTH AFTER 4 DAYS Vitals/I & O Vital Sign - Last 24 Hours 08/22/21 08/22/21 08/22/21 08/22/21 13:52 15:00 19:00 20:00 Temp 98.4 98.1 98.4 98.1 Pulse 80 78 Resp 18 16 16 B/P (MAP) 162/85 (110) 158/86 (110) Pulse Ox 97 98 98 O2 Delivery Room Air Room Air Room Air Room Air 08/22/21 08/22/21 08/23/21 08/23/21 20:05 23:59 00:11 03:00 Temp 98.4 98.0 98.4 98.0 Pulse 80 73 Resp 16 20 B/P (MAP) 158/84 (108) 169/88 (115) Pulse Ox 98 98 98 99 O2 Delivery Room Air Room Air Room Air Room Air 08/23/21 08/23/21 08/23/21 08/23/21 08:00 09:13 09:14 09:14 Pulse 97 97 Resp 16 B/P (MAP) 158/71 158/71 Pulse Ox 99 O2 Delivery Room Air Room Air Intake and Output 08/22/21 08/22/21 08/23/21 15:00 23:00 07:00 Intake Total 960 ml 1897 ml 1150 ml Output Total 800 ml Balance 960 ml 1897 ml 350 ml Problem List Problems Medical Problems: (1) Altered mental status Status: Acute (2) Elevated troponin Status: Acute (3) Hypokalemia Status: Acute (4) Lactic acidosis Status: Acute (5) Severe sepsis Status: Acute (6) Suspected 2019 novel coronavirus infection Status: Acute Assessment Salmonella gastroenteritis, improving. Plan of Care Note Continue as now. Home at your discretion from GI standpoint. Would not expect total resolution of the diarrhea for several days. Off the weekend. Coverage available if needed. Justicifation of Admission Dx: Justifications for Admission: Justification of Admission Dx: Yes SADAF FOSS MD Aug 23, 2021 13:54
--- NOTE | 2021-08-23 14:57 | NUR ---
SS following up with discharge planning. SS reviewed pt chart and discussed with pt RN. Pt is currently on room air. COVID19 negative. Pt on IV Rocephin. Probable discharge to home tomorrow. Packet updated and placed on chart.
[2021-08-23 15:00] VITALS: BP 124/61
[2021-08-23 19:00] VITALS: BP 129/65
[2021-08-23] MEDS: ATORVASTATIN CALCIUM 10 MG TABLET. PO SCH (20:17)
[2021-08-23] MEDS: GABAPENTIN 400 MG CAPSULE. PO SCH (20:18)
[2021-08-23] MEDS: ALPRAZolam 0.5 MG TABLET PO PRN (20:28)
[2021-08-23 23:00] VITALS: BP 130/65
[2021-08-24 03:00] VITALS: BP 147/69
[2021-08-24 05:24] LABS: BASO # 0.1 x10^3/uL (0.0-0.2); BASO % 1 % (0-3); EOS # 0.1 x10^3/uL (0.0-0.7); EOS % 1 % (0-3); HEMATOCRIT 36.4 % (36.0-47.0); HEMOGLOBIN 12.2 g/dL (12.0-15.5); LYMPH # 2.3 x10^3/uL (1.0-4.8); LYMPH % 21 % (24-48); MEAN CORPUSCULAR HEMOGLOBIN 31 pg (25-35); MEAN CORPUSCULAR HGB CONC 34 g/dL (31-37); MEAN CORPUSCULAR VOLUME 91 fL (79-100); MONO # 1.1 x10^3/uL (0.0-1.1); MONO % 11 % (0-9); NEUT % 66 % (31-73); PLATELET COUNT 249 x10^3/uL (140-400); RED BLOOD COUNT 3.99 x10^6/uL (3.50-5.40); RED CELL DISTRIBUTION WIDTH 13.5 % (11.5-14.5); WHITE BLOOD COUNT 10.6 x10^3/uL (4.0-11.0)
[2021-08-24 09:00] VITALS: BP 132/69
--- NOTE | 2021-08-24 09:20 | NUR ---
Pt discharged home. Pt accompanied to caregiver vehicle by RN - transported by w/c. Belongings taken with pt.
== END 2021-08-24 09:40 | disposition home or self-care (01) | DRG 871 ==
LOC: ER 07:37 → 1 WEST ICU 09:25
PROVIDERS: ADMIT Internal Medicine; ATTEND Internal Medicine
DX: A41.9 Sepsis, unspecified organism (principal); I21.A1 Myocardial infarction type 2; G93.41 Metabolic encephalopathy; A02.0 Salmonella enteritis; C16.9 Malignant neoplasm of stomach, unspecified; D84.9 Immunodeficiency, unspecified; E78.00 Pure hypercholesterolemia, unspecified; E78.5 Hyperlipidemia, unspecified; G62.9 Polyneuropathy, unspecified; M06.9 Rheumatoid arthritis, unspecified; G89.4 Chronic pain syndrome; I12.9 Hypertensive chronic kidney disease with stage 1 through stage 4 chronic kidney disease, or unspecified chronic kidney disease; J11.1 Influenza due to unidentified influenza virus with other respiratory manifestations; K21.00 Gastro-esophageal reflux disease with esophagitis, without bleeding; L40.9 Psoriasis, unspecified; M19.90 Unspecified osteoarthritis, unspecified site; M35.3 Polymyalgia rheumatica; M48.00 Spinal stenosis, site unspecified; M79.7 Fibromyalgia; M81.0 Age-related osteoporosis without current pathological fracture; N18.2 Chronic kidney disease, stage 2 (mild); R65.20 Severe sepsis without septic shock; Z20.822 Contact with and (suspected) exposure to COVID-19; Z78.9 Other specified health status; Z79.52 Long term (current) use of systemic steroids; Z85.01 Personal history of malignant neoplasm of esophagus; Z85.028 Personal history of other malignant neoplasm of stomach; Z90.49 Acquired absence of other specified parts of digestive tract; Z90.710 Acquired absence of both cervix and uterus; Z91.010 Allergy to peanuts; Z96.653 Presence of artificial knee joint, bilateral; E87.6 Hypokalemia; Z91.011 Allergy to milk products; Z91.018 Allergy to other foods; Z91.013 Allergy to seafood
CPT/HCPCS: 36415; 51702; 70450; 71045; 80048; 80053; 81001; 82140; 82553; 83605; 83690; 83735; 83880; 84132; 84145; 84484; 85007; 85025; 87040; 87045; 87177; 87205; 87209; 87426; 87493; 87505; 87804; 93005; 96361; 96374; J0696; J1644; J2405; J2543; J3010; J3370; J3475; J3480; J7030; J7040; J7050; J7512; U0003; U0005; 99291-25; G0378

== ENCOUNTER → 2021-11-11 | Outpatient (CLI) | payer MEDICARE, MEDICAID ==
[~2021-11-11] MED LIST changes: +ATOR10TA PO; +CIPR500T94 PO; +CYCL10TA19 PO; -CYCL10TA2 PO; +FERR-36 PO; +LACT1CAP19 PO
--- NOTE | 2021-11-11 09:59 | KCIC ---
EXAM: DUAL ENERGY X-RAY ABSORPTIOMETRY (DEXA). HISTORY: Postmenopausal screening. FINDINGS: The lowest measured T-score is 0.6 in the left hip, based on a bone mineral density of 1.01 5 g/cm^2. Refer to the worksheets for full detail. There has been a 0.6 percent decrease in density of the left hip and 5.8 percent increase in density of the lumbar spine compared to the study performed 05/26/2018. IMPRESSION: 1. Normal. Bone mineral density yields a T-score of -1.0 or greater. Fracture risk is low. 2. FRAX report: Not calculated. METHODOLOGY: Dual energy x-ray absorptiometry was performed to measure bone mineral density. The foll owing analysis is based on the 2019 Official Positions of the International Society for Clinical Dens itometry: Measurements of the hips and the average of L1-L4 are preferred. When the spine and/or hip cannot be feasibly measured or interpreted, or in the setting of hyperparathyroidism, distal radial bone minera l density may be measured. The lumbar spine T-score is based on the average bone mineral density of L1-L4. In the setting of art ifact or anatomic abnormality, some lumbar levels may be excluded, and the remaining levels used for calculation. A single lumbar level is not used for diagnosis, and if only a single level is available for assessment, another anatomic site will be used to assign a diagnosis. The hip T-score is based on the bone mineral density measurement of the femoral neck or total proxima l femur of either side, whichever is lowest. Bilateral mean values are not used for diagnosis. The forearm T-score is derived from 33% of the distal radius of the nondominant forearm. Electronically signed by: Tess Atwood MD (11/11/2021 9:56 AM) [id number]
== END ==
LOC: KCIC DEXA 09:07
PROVIDERS: ATTEND Internal Medicine
DX: Z13.820 Encounter for screening for osteoporosis (principal); E28.39 Other primary ovarian failure; Z78.0 Asymptomatic menopausal state
CPT/HCPCS: 77080